=== PATIENT | female | born 1980 | race Caucasian/White ===

== ENCOUNTER → 2020-03-18 10:13 | Outpatient (BNVA) | payer MEDICAID, SELFPAY | PROVIDERS: Visit Provider Dietitian, Registered ==

== ENCOUNTER → 2020-03-28 14:30 | Outpatient (BNVA) | payer OTHER, SELFPAY | PROVIDERS: Visit Provider Physician Assistant | DX: R10.9 Unspecified abdominal pain (principal); Z98.84 Bariatric surgery status | CPT/HCPCS: 99212 ==

== ENCOUNTER 2020-05-08 11:35 | Outpatient (REF) | payer OTHER, SELFPAY ==
[2020-05-08 12:13] LABS: MANUAL DIFF FLAG NO
[2020-05-08 12:17] LABS: Basophils Percent Auto 0.4 % (0-2); Eosinophils Absolute Auto 0.1 X10*3/uL (0.0-0.4); Eosinophils Percent Auto 1.3 % (0-4); Hemoglobin 9.5 g/dl (12.0-16.0); Imm Gran Abs Auto 0.02 X10*3/uL (0.00-0.03); Imm Gran Pct Auto 0.4 % (0.0-0.4); Lymphocytes Absolute Auto 1.7 X10*3/uL (1.2-4.9); Lymphocytes Percent Auto 30.9 % (20-40); Mean Corpuscular HGB Conc 29.7 g/dl (31.0-35.0); Mean Corpuscular Hemoglobin 22.6 pg (27.0-33.0); Mean Platelet Volume 9.4 fL (9.4-12.3); Monocytes Absolute Auto 0.4 X10*3/uL (0.1-1.2); Monocytes Percent Auto 7.6 % (2-11); Neutrophils Absolute Auto 3.3 X10*3/uL (2.0-8.3); Neutrophils Percent Auto 59.4 % (45-73); Platelet Count 278 X10*3/uL (160-400); Red Blood Count 4.21 X10*6/uL (4.20-5.50); Red Cell Distribution Width 15.1 % (11.0-16.0); White Blood Count 5.5 X10*3/uL (4.8-10.8)
[2020-05-08 12:49] LABS: Estimated Average Glucose 108 mg/dL; Hemoglobin A1c % 5.4 %
[2020-05-08 12:54] LABS: Alanine Aminotransferase < 6 U/L (0-31); Albumin Level 4.2 g/dL (3.5-5.0); Alkaline Phosphatase 76 U/L (39-117); Anion Gap 13 (12-20); Aspartate Amino Transferase 10 U/L (5-31); Bilirubin Total 0.9 mg/dL (0.0-1.0); Blood Urea Nitrogen 11 mg/dL (9-16); C Reactive Protein 9.13 mg/dL (< or = 0.50); Calcium 9.2 mg/dL (8.4-10.2); Carbon Dioxide 25 mmol/L (22-29); Chloride 105 mmol/L (96-108); Cholesterol 160 mg/dL; Estimated Glomerular Filt Rate > 60; Glucose Random 73 mg/dL (60-115); HDL Cholesterol 64 mg/dL; LDL Cholesterol Calculated 81 mg/dl; Potassium 3.3 mmol/L (3.3-5.1); Sodium 140 mmol/L (135-145); Total Protein 6.7 g/dL (6.5-8.0); Triglycerides 79 mg/dL
[2020-05-08 13:13] LABS: Ferritin 18 ng/mL (10-122); TSH reflex Free T4 0.74 uIU/mL (0.32-4.0); Vitamin D 25-OH Total 27.5 ng/mL (>30)
[2020-05-08 13:39] LABS: Folate 12.2 ng/mL (> or = 4.0); Vitamin B12 428 pg/mL (200-900)
[2020-05-09 05:22] LABS: Insulin Level Total 28.6 uIU/mL
[2020-05-09 18:11] LABS: Calcium (PTHI) 9.2 mg/dL (8.6-10.2); PTHI 29 pg/mL (14-64)
[2020-05-10 22:37] LABS: Zinc 66 mcg/dL (60-130)
[2020-05-13 10:31] LABS: Vitamin A 23 mcg/dL (38-98)
[2020-05-15 12:46] LABS: Vitamin B1 8 nmol/L (8-30)
== END 2020-05-08 11:36 | disposition home or self-care (01) ==
LOC: HO.LAB 11:35
PROVIDERS: PCP Internal Medicine; Visit Provider Physician Assistant
DX: Z98.84 Bariatric surgery status (principal)
CPT/HCPCS: 36415; 80053; 80061; 82306; 82607; 82728; 82746; 83036; 83525; 83970; 84425; 84443; 84590; 84630; 85025; 86140

== ENCOUNTER → 2020-05-15 08:11 | Outpatient (BNVA) | payer OTHER, SELFPAY | PROVIDERS: Visit Provider Physician Assistant ==

== ENCOUNTER → 2020-07-24 08:13 | Outpatient (BNVA) | payer OTHER, SELFPAY | PROVIDERS: Visit Provider Physician Assistant | DX: E50.9 Vitamin A deficiency, unspecified (principal); D64.9 Anemia, unspecified ==

== ENCOUNTER 2021-12-18 10:43 | Outpatient (REF) | payer OTHER, SELFPAY ==
[2021-12-18 13:41] LABS: MANUAL DIFF FLAG NO
[2021-12-18 13:43] LABS: Basophils Percent Auto 0.5 % (0-2); Eosinophils Absolute Auto 0.1 X10*3/uL (0.0-0.4); Eosinophils Percent Auto 1.1 % (0-4); Hematocrit 35.3 % (37.0-47.0); Hemoglobin 10.4 g/dl (12.0-16.0); Imm Gran Abs Auto 0.01 X10*3/uL (0.00-0.03); Imm Gran Pct Auto 0.2 % (0.0-0.4); Lymphocytes Percent Auto 31.7 % (20-40); Mean Corpuscular HGB Conc 29.5 g/dl (31.0-35.0); Mean Corpuscular Hemoglobin 22.1 pg (27.0-33.0); Mean Corpuscular Volume 75.1 fL (80.0-98.0); Mean Platelet Volume 9.6 fL (9.4-12.3); Monocytes Absolute Auto 0.5 X10*3/uL (0.1-1.2); Monocytes Percent Auto 7.6 % (2-11); Neutrophils Absolute Auto 3.7 x10*3/uL (2.0-8.3); Neutrophils Percent Auto 58.9 % (45-73); Platelet Count 331 X10*3/uL (160-400); Red Cell Distribution Width 17.5 % (11.0-16.0); White Blood Count 6.2 X10*3/uL (4.8-10.8)
[2021-12-18 14:03] LABS: Alanine Aminotransferase 17 U/L (0-31); Albumin Level 4.4 g/dL (3.5-5.0); Alkaline Phosphatase 106 U/L (39-117); Anion Gap 14 (12-20); Aspartate Amino Transferase 18 U/L (5-31); Bilirubin Total 0.2 mg/dL (0.0-1.0); Blood Urea Nitrogen 17 mg/dL (9-16); C Reactive Protein 0.48 mg/dL (< or = 0.50); Calcium 9.6 mg/dL (8.4-10.2); Carbon Dioxide 27 mmol/L (22-29); Chloride 102 mmol/L (96-108); Estimated Glomerular Filt Rate > 60; Glucose Random 88 mg/dL (60-115); Iron 40 mcg/dL (30-160); Percent Iron Saturation 9 % (15-50); Potassium 4.5 mmol/L (3.3-5.1); Sodium 138 mmol/L (135-145); Total Iron Binding Capacity 446 mcg/dL (228-428); Total Protein 7.1 g/dL (6.5-8.0); Unsaturated Iron Binding 406 ug/dL
[2021-12-18 14:07] LABS: Creatinine Urine 113.24 mg/dL; Protein/Creatinine Ratio, Ur 0.07 (<0.2); Total Protein Urine Random 8 mg/dL (<12)
[2021-12-18 14:21] LABS: Erythrocyte Sedimentation Rate 13 MM/HR (0-20)
== END 2021-12-18 10:44 | disposition home or self-care (01) ==
LOC: HO.10HDL 10:43
PROVIDERS: Visit Provider Internal Medicine Rheumatology
DX: M79.7 Fibromyalgia (principal); D64.9 Anemia, unspecified; R76.8 Other specified abnormal immunological findings in serum; R12 Heartburn; Z79.899 Other long term (current) drug therapy; Z98.84 Bariatric surgery status
CPT/HCPCS: 36415; 80053; 83540; 84156; 85025; 85652; 86140; 99202

== ENCOUNTER → 2022-01-20 09:43 | Outpatient (BNVA) | payer OTHER, SELFPAY | PROVIDERS: PCP Internal Medicine; Visit Provider Internal Medicine | DX: Z11.59 Encounter for screening for other viral diseases (principal); D50.9 Iron deficiency anemia, unspecified; Z98.84 Bariatric surgery status | CPT/HCPCS: 99202 ==

== ENCOUNTER 2022-02-24 08:21 | Outpatient (REF) | payer OTHER, SELFPAY ==
[2022-02-24 09:42] LABS: TSH reflex Free T4 1.28 uIU/mL (0.32-4.0)
[2022-02-25 08:15] LABS: ~HepC Num1 0.06 S/CO (0.00-0.79); ~Hepatitis C Antibody Nonreactive (Nonreactive)
[2022-02-26 20:24] LABS: Transglutaminase IgA <1.0 U/mL
[2022-02-27 07:08] LABS: Immunoglobulin A 212 mg/dL (47-310)
[2022-02-27 17:47] LABS: Zinc 66 mcg/dL (60-130)
[2022-03-01 19:02] LABS: Copper, serum 159 mcg/dL (70-175)
== END 2022-02-24 08:22 | disposition home or self-care (01) ==
LOC: HO.LAB 08:21
PROVIDERS: Visit Provider Internal Medicine
DX: Z11.59 Encounter for screening for other viral diseases (principal); D50.9 Iron deficiency anemia, unspecified; Z98.84 Bariatric surgery status
CPT/HCPCS: 36415; 82525; 82784; 84443; 84630; 86364; 86803

== ENCOUNTER → 2022-03-10 11:34 | Outpatient (BNVA) | payer OTHER, SELFPAY | PROVIDERS: PCP Internal Medicine; Visit Provider Physician Assistant Surgical | DX: E66.9 Obesity, unspecified (principal); Z98.84 Bariatric surgery status; Z68.36 Body mass index [BMI] 36.0-36.9, adult | CPT/HCPCS: 99212 ==

== ENCOUNTER 2022-03-26 07:26 | Outpatient (REF) | payer OTHER, SELFPAY ==
[2022-03-26 08:16] LABS: Estimated Average Glucose 126 mg/dL
[2022-03-26 09:36] LABS: C Reactive Protein 0.33 mg/dL (< or = 0.50); Cholesterol 169 mg/dL; HDL Cholesterol 56 mg/dL; LDL Cholesterol Calculated 102 mg/dl; Triglycerides 59 mg/dL
[2022-03-26 09:58] LABS: Folate 11.6 ng/mL (> or = 4.0); Insulin 11 uU/mL (2-29); Vitamin B12 293 pg/mL (200-900); Vitamin D 25-OH Total 14.6 ng/mL (>30)
[2022-04-02 03:57] LABS: Vitamin A 39 mcg/dL (38-98)
[2022-04-04 15:38] LABS: Vitamin B1 12 nmol/L (8-30)
== END 2022-03-26 07:27 | disposition home or self-care (01) ==
LOC: HO.LAB 07:26
PROVIDERS: Visit Provider Physician Assistant Surgical
DX: Z98.84 Bariatric surgery status (principal)
CPT/HCPCS: 36415; 80061; 82306; 82607; 82746; 83036; 83525; 84425; 84590; 86140

== ENCOUNTER 2022-04-22 12:09 | Day surgery (SDC) | payer OTHER, SELFPAY ==
[2022-03-30 09:34] VITALS: BMI 36.1
--- NOTE | 2022-04-20 13:57 | P.CONAN_ITS ---
Documented by User: Arielle Younger NP 04/20/22 13:58 HPI - Anesthesia Eval Consult details Narrative: 42yo F for Upper Endoscopy and Colonoscopy PMFSH Active Problems Active Problems: All Active Problems (Updated 01/20/22 @ 10:24 by Anne-Marie Felton MD) Encounter for hepatitis C screening test for low risk patient (Acute) Iron deficiency anemia (Acute) Heartburn (Acute) KERWIN positive (Acute) Fibromyalgia (Acute) S/P laparoscopic sleeve gastrectomy (Acute) Anemia (Acute) Vitamin A deficiency (Acute) Obesity (Acute) Past Medical History Medical History Abdominal pain KERWIN positive Anemia Arthritis Back pain Fibromyalgia Migraines Morbidly obese Obesity Family History Family History Father High cholesterol Diabetes mellitus Hypertension Alzheimer disease Mother Hypertension Gastritis Stomach ulcer Brother Asthma Sister Asthma Sister Kidney problem Asthma Sister Asthma Sister Asthma Son Asthma ADHD Anxiety Son Allergies Daughter ADHD Allergies Surgical History Surgical History History of esophagogastroduodenoscopy (EGD) Hx of colonoscopy S/P laparoscopic sleeve gastrectomy Social History Social History Alcohol intake: never Patient Tobacco Use Status: Never used Tobacco Use of substances other than those prescribed or required for medical reasons: No Are you DNR?: No Advance Directives: No Advance Directives Information Provided: Yes Current occupational status: employed 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 Meds Allergies Allergy/AdvReac Type Severity Reaction Status Date / Time No Known Allergies Allergy Verified 04/22/22 12:39 Home Medications Medication Instructions Recorded Confirmed Last Taken Type acetaminophen 500 mg capsule 500 mg PO TID PRN Pain 12/18/21 04/22/22 Unknown History duloxetine 60 mg capsule,delayed 60 mg PO BEDTIME 12/18/21 04/22/22 Unknown History release (Cymbalta) tizanidine 4 mg capsule (Zanaflex) 4 mg PO BEDTIME 12/18/21 04/22/22 Unknown History Exam Exam Date and Time: April 20, 2022 1357 Height,Weight and Vital Signs: Height 5 ft 5 in Weight 98.43 kg Pertinent Lab Results Pertinent Lab Results: Laboratory Tests 12/18/21 12/18/21 10:50 10:50 WBC 6.2 Hgb 10.4 L Hct 35.3 L Plt Count 331 Sodium 138 Potassium 4.5 D Chloride 102 Carbon Dioxide 27 BUN 17 H Creatinine 0.74 Assessment and Plan Assessment Anesthesia Assessment: Chart Reviewed Documented by User: Annie Jacobs MD 04/22/22 14:16 PMFSH Active Problems Active Problems: All Active Problems (Updated 01/20/22 @ 10:24 by Anne-Marie Felton MD) Encounter for hepatitis C screening test for low risk patient (Acute) Iron deficiency anemia (Acute) Heartburn (Acute) KERWIN positive (Acute) Fibromyalgia (Acute) S/P laparoscopic sleeve gastrectomy (Acute) 2019@@ Anemia (Acute) Vitamin A deficiency (Acute) Obesity (Acute) Past Medical History Medical History Abdominal pain KERWIN positive Anemia Arthritis Back pain Fibromyalgia Migraines Morbidly obese Obesity Family History Family History Father High cholesterol Diabetes mellitus Hypertension Alzheimer disease Mother Hypertension Gastritis Stomach ulcer Brother Asthma Sister Asthma Sister Kidney problem Asthma Sister Asthma Sister Asthma Son Asthma ADHD Anxiety Son Allergies Daughter ADHD Allergies Family history of problems with anesthesia: No Surgical History Surgical History History of esophagogastroduodenoscopy (EGD) Hx of colonoscopy S/P laparoscopic sleeve gastrectomy History of Problems with Anesthesia: No Social History Social History Alcohol intake: never Patient Tobacco Use Status: Never used Tobacco Use of substances other than those prescribed or required for medical reasons: No Are you DNR?: No Advance Directives: No Advance Directives Information Provided: Yes Current occupational status: employed 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 Meds Allergies Allergy/AdvReac Type Severity Reaction Status Date / Time No Known Allergies Allergy Verified 04/22/22 12:39 Home Medications Medication Instructions Recorded Confirmed Last Taken Type acetaminophen 500 mg capsule 500 mg PO TID PRN Pain 12/18/21 04/22/22 Unknown History duloxetine 60 mg capsule,delayed 60 mg PO BEDTIME 12/18/21 04/22/22 Unknown History release (Cymbalta) tizanidine 4 mg capsule (Zanaflex) 4 mg PO BEDTIME 12/18/21 04/22/22 Unknown History Exam Height,Weight and Vital Signs: Height 5 ft 5 in Weight 98.43 kg Vital Signs Temp Pulse Resp BP Pulse Ox O2 Del Method 04/22/22 12:51 97.3 F 71 15 100/61 97 Room Air Airway Mallampati Class: II TM Dist: >3cm Neck ROM: Full Loose/Missing/Broken Teeth: No Heart: RRR Lungs: CTAB Assessment and Plan Assessment Anesthesia Assessment: Anesthesia Plan Discussed Final Anesthetic Review Family History of Problems with Anesthesia: No History of Problems with Anesthesia: No NPO: Yes ASA Class: III Final Preanesthetic Review: No Changes in Pt Med Stat, Meds/Allgs Chart Reviewed, Consent Obtained/Reviewed and Anes Risks/Benef Reviewed Patient Risk: Intermediate Procedure Risk: Low Assessment/Block/Sedation in SS: Assess/Block/Sedation-SS Anesthetic Plan Anesthetic Plan: MAC: Disposition: Standard PACU
[2022-04-22 12:49] LABS: UPreg QC Valid YES; Urine Pregnancy NEGATIVE (NEGATIVE)
[2022-04-22 12:51] VITALS: BP 100/61; PULSE 71; RESP 15; TEMP 36.3; O2SAT 97
--- NOTE | 2022-04-22 13:05 | MHC.SHP ---
Pre-Procedural Eval Section A Date of Service: 04/22/22 Section B Chief Complaint: Iron deficiency anemia,Bariatric surgery status Details of Present Illness: Medical History Abdominal pain KERWIN positive Back pain Fibromyalgia Hypothyroidism Migraines Morbidly obese Obesity Surgical History History of esophagogastroduodenoscopy (EGD) Hx of colonoscopy S/P laparoscopic sleeve gastrectomy Relevant Family History (Specify if Yes): No Relevant Social History: None Present Medications: see Short Stay Collaborative assessment Allergies: Allergies Allergy/AdvReac Type Severity Reaction Status Date / Time No Known Allergies Allergy Verified 04/22/22 12:39 Review of Systems Review of Systems Comment: Ten point ROS negative Exam Exam Comment: Gen appear: No acute distress HEENT: no icterus Chest: No overt resp distress Abd: soft, nontender, nondistended Psych: Stable affect, answering questions appropriately Neuro: A/Ox3 noted to move all extremities spontaneously Ext: no peripheral edema Plan Diagnosis/Plan: Unchanged I have reviewed the history and physical and performed a pertinent physical examination on my patient. No changes have occurred unless specified. Time Spent With Patient Time: Total time managing care of this patient today ____ minutes.
[2022-04-22] MEDS: Lactated Ringers 1,000 ML 100 ML IVCONT (13:32)
--- NOTE | 2022-04-22 14:47 | P.OP_ITS ---
Operative Note Operative Note Date of Service: 04/22/22 Narrative: Procedure:?Esophagogastroduodenoscopy and Colonoscopy Indication:?anemia Endoscopist:?Anne-Marie Felton MD Anesthesia Provider:?Ivet Hurst CRNA Anesthesia type:?MAC Instrument:?Olympus GIF-H190, PCF-H190L EGD Procedure:?? The procedure, indications, preparation and potential complications were reviewed with the patient, who indicated understanding and gave written informed consent to proceed. diplomatic interpreter assisted with the encounter .A physical exam was performed. The endoscope was introduced through the mouth, and advanced to the second part of the duodenum. The mucosa was carefully examined on slow withdrawal of the endoscope. The patient tolerated the procedure well. There were no immediate complications.? ? EGD Findings:? * Esophagus: Normal esophagus mucosa. The Z line was at 37 cm. * Stomach:?Normal stomach mucosa. Normal appearing cardia on retroflexion.?Narrowing of the stomach was noted along incisura but the scope traversed easily through the pylorus. Random cold forceps biopsies were taken to rule out H pylori. * Duodenum:? Normal mucosa to the extent seen.? Cold forceps biopsies were taken duodenal bulb and 2nd portion of the duodenum to rule out celiac sprue. Colonoscopy Procedure:? The patient was then turned for the colonoscopy. A digital rectal exam was performed which was normal.? A distal attachment cap was affixed to the tip of the scope and the colonoscope was then inserted through the anus and advanced through the colon to the cecum at 75 cm and terminal ileum. The appendiceal orifice and ileocecal valve was identified.? Mucosa was carefully examined under high definition white light as the instrument was slowly withdrawn in a retrograde panoramic fashion.?Ascending colon was intubated twice. Retroflexion was performed in rectum. The procedure was not difficult. There were no immediate obvious complications. The quality of the prep was BBPS: 2+3+3 = adequate Withdrawal time 14 minutes. Limitations: No limitations Colonoscopy Findings: Mucosa: Normal mucosa in whole colon and terminal ileum. Protruding lesions: * Medium internal hemorrhoids without stigmata of recent bleeding .Impression:? * Normal esophagus * Hiatal hernia * Normal stomach (biopsy) * Normal duodenum (biopsy) * Normal colon and terminal ileum mucosa (biopsy) * Internal hemorrhoids Recommendations: * Await path results.? * If H pylori positive, would recommend treatment followed by test of cure * Repeat colonoscopy for asymptomatic colon cancer screening recommended in 10 years. ? Following was discussed with the patient.? Relevant handout provided.
[2022-04-22 14:50] VITALS: BP 124/76; PULSE 88; RESP 16; TEMP 36.1; O2SAT 100
[2022-04-22 15:05] VITALS: BP 138/92; PULSE 89; RESP 17; TEMP 36.2; O2SAT 100
== END 2022-04-22 15:34 | disposition home or self-care (01) ==
PROVIDERS: Anesthesiology; Visit Provider Internal Medicine
PROC: (CPT 45378; principal; 2022-04-22 13:40)
DX: D50.9 Iron deficiency anemia, unspecified (principal); Z98.84 Bariatric surgery status; K64.8 Other hemorrhoids; K44.9 Diaphragmatic hernia without obstruction or gangrene; R12 Heartburn; M79.7 Fibromyalgia; E50.9 Vitamin A deficiency, unspecified; R76.8 Other specified abnormal immunological findings in serum; E66.01 Morbid (severe) obesity due to excess calories; Z68.36 Body mass index [BMI] 36.0-36.9, adult; Z79.899 Other long term (current) drug therapy
CPT/HCPCS: 45378; 43239; 81025; 88305; 88342; J2250

== ENCOUNTER 2022-05-05 14:52 | Outpatient (REF) | payer OTHER, SELFPAY ==
[2022-05-05 17:11] LABS: Unsaturated Iron Binding 339 ug/dL
[2022-05-05 17:12] LABS: Iron 23 mcg/dL (30-160); Percent Iron Saturation 6 % (15-50); Total Iron Binding Capacity 362 mcg/dL (228-428)
[2022-05-05 17:38] LABS: Ferritin 8 ng/mL (10-250); Folate 11.6 ng/mL (> or = 4.0); Vitamin B12 408 pg/mL (200-900); Vitamin D 25-OH Total 14.4 ng/mL (>30)
== END 2022-05-05 14:53 | disposition home or self-care (01) ==
LOC: HO.LAB 14:52
PROVIDERS: Visit Provider Internal Medicine
DX: D50.9 Iron deficiency anemia, unspecified (principal)
CPT/HCPCS: 36415; 82306; 82607; 82728; 82746; 83540

== ENCOUNTER → 2022-05-06 08:57 | Outpatient (BNVA) | payer OTHER, SELFPAY | PROVIDERS: PCP Internal Medicine; Referring Provider Internal Medicine; Visit Provider Internal Medicine | DX: D50.9 Iron deficiency anemia, unspecified (principal); E55.9 Vitamin D deficiency, unspecified; Z98.84 Bariatric surgery status; Z98.890 Other specified postprocedural states | CPT/HCPCS: 99212 ==

== ENCOUNTER 2022-05-28 08:45 | Outpatient (REF) | payer OTHER, SELFPAY | END 2022-05-28 08:46 | disposition home or self-care (01) | LOC: HO.MDS 08:45 | PROVIDERS: Visit Provider Internal Medicine | DX: D50.9 Iron deficiency anemia, unspecified (principal) | CPT/HCPCS: 96365; J1756 ==

== ENCOUNTER 2022-06-04 11:44 | Outpatient (REF) | payer OTHER, SELFPAY | END 2022-06-04 11:45 | disposition home or self-care (01) | LOC: HO.MDS 11:44 | PROVIDERS: Visit Provider Internal Medicine | DX: D50.9 Iron deficiency anemia, unspecified (principal) | CPT/HCPCS: 96365; J1756 ==

== ENCOUNTER 2022-06-10 11:42 | Outpatient (REF) | payer OTHER, SELFPAY | END 2022-06-10 11:43 | disposition home or self-care (01) | LOC: HO.MDS 11:42 | PROVIDERS: Visit Provider Internal Medicine | DX: D50.9 Iron deficiency anemia, unspecified (principal) | CPT/HCPCS: 96365; J1756 ==

== ENCOUNTER 2022-06-17 11:38 | Outpatient (REF) | payer OTHER, SELFPAY | END 2022-06-17 11:39 | disposition home or self-care (01) | LOC: HO.MDS 11:38 | PROVIDERS: Visit Provider Internal Medicine | DX: D50.9 Iron deficiency anemia, unspecified (principal) | CPT/HCPCS: 96365; J1756 ==

== ENCOUNTER 2022-06-24 11:10 | Outpatient (REF) | payer OTHER, SELFPAY | END 2022-06-24 11:11 | disposition home or self-care (01) | LOC: HO.MDS 11:10 | PROVIDERS: Visit Provider Internal Medicine | DX: D50.9 Iron deficiency anemia, unspecified (principal) | CPT/HCPCS: 96365; J1756 ==

== ENCOUNTER 2022-07-02 11:51 | Outpatient (REF) | payer OTHER, SELFPAY | END 2022-07-02 11:52 | disposition home or self-care (01) | LOC: HO.MDS 11:51 | PROVIDERS: Visit Provider Internal Medicine | DX: D50.9 Iron deficiency anemia, unspecified (principal) | CPT/HCPCS: 96365; J1756 ==

== ENCOUNTER 2022-07-07 09:18 | Outpatient (REF) | payer OTHER, SELFPAY ==
[2022-07-07 10:25] LABS: Hematocrit 37.5 % (37.0-47.0); Hemoglobin 11.4 g/dl (12.0-16.0); Mean Corpuscular HGB Conc 30.4 g/dl (31.0-35.0); Mean Corpuscular Hemoglobin 23.9 pg (27.0-33.0); Mean Corpuscular Volume 78.6 fL (80.0-98.0); Mean Platelet Volume 9.5 fL (9.4-12.3); Platelet Count 292 X10*3/uL (160-400); Red Blood Count 4.77 X10*6/uL (4.20-5.50); Red Cell Distribution Width 19.6 % (11.0-16.0); White Blood Count 5.9 X10*3/uL (4.8-10.8)
[2022-07-07 11:29] LABS: Ferritin 56 ng/mL (10-250); Folate 13.8 ng/mL (> or = 4.0); Vitamin B12 422 pg/mL (200-900); Vitamin D 25-OH Total 60.5 ng/mL (>30)
== END 2022-07-07 09:19 | disposition home or self-care (01) ==
LOC: HO.LAB 09:18
PROVIDERS: PCP Internal Medicine; Visit Provider Internal Medicine
DX: D50.9 Iron deficiency anemia, unspecified (principal); E55.9 Vitamin D deficiency, unspecified
CPT/HCPCS: 36415; 82306; 82607; 82728; 82746; 85027

== ENCOUNTER 2022-09-22 08:40 | Outpatient (REF) | payer OTHER, SELFPAY ==
[2022-09-22 09:09] LABS: Hemoglobin 11.9 g/dl (12.0-16.0); Mean Corpuscular HGB Conc 31.3 g/dl (31.0-35.0); Mean Corpuscular Hemoglobin 25.4 pg (27.0-33.0); Mean Platelet Volume 9.1 fL (9.4-12.3); Platelet Count 242 X10*3/uL (160-400); Red Blood Count 4.69 X10*6/uL (4.20-5.50); Red Cell Distribution Width 14.2 % (11.0-16.0); White Blood Count 5.8 X10*3/uL (4.8-10.8)
[2022-09-22 10:57] LABS: Ferritin 8 ng/mL (10-250); Vitamin D 25-OH Total 37.8 ng/mL (>30)
== END 2022-09-22 08:41 | disposition home or self-care (01) ==
LOC: HO.LAB 08:40
PROVIDERS: PCP Internal Medicine; Visit Provider Internal Medicine
DX: D64.9 Anemia, unspecified (principal); E55.9 Vitamin D deficiency, unspecified
CPT/HCPCS: 36415; 82306; 82728; 85027

== ENCOUNTER 2022-09-28 10:20 | Outpatient (AMB) | payer OTHER, SELFPAY ==
[2022-09-28 10:35] VITALS: BP 127/65; PULSE 93; BMI 37.8
--- NOTE | 2022-09-28 10:35 | MHC.OFFVIS ---
Intake Vital Signs 09/28/22 10:35 Height 5 ft 5 in Weight 227 lb 1.218 oz BMI 37.8 BP 127/65 Blood Pressure Location Lt brachial Position Sitting Pulse 93 Intake Visit Reasons: follow up Intake Note: Adriana presents in the office as a follow up. CC: She states that she is finished with the meds she was given and there is no changes everything is still the same as it was. Shearing Supervisor Required: Yes Shearing Supervisor Name: [place] [id number] Allergies No Known Allergies Allergy (Verified 09/28/22 10:36) HPI HPI Comments History of Present Illness Details This a 41 year olf female with PMH of sleeve gastrectomy 2018 who presents for follow up of iron deficiency anemia. 01/20/22: Patient noted to have microcytic anemia with low iron indices since April 2020. Recent ferritin was 18, saturation 9% and high TIBC. She is currently not on any iron supplementation she says a script that she was given has been completed. She denies any blood in stool, melena or hematochezia. Has history of intermittent menorrhagia. No family history of autoimmune diseases including celiac disease or inflammatory bowel disease, patient currently is seeing a keyseater operator for ? inflammatory arthritis in the setting of positive KERWIN. 04/22/22 - EGD/colo: Normal esophagus Hiatal hernia Normal stomach (biopsy) Normal duodenum (biopsy) Normal colon and terminal ileum mucosa (biopsy) Internal hemorrhoids Path: A.? Duodenum, biopsy:? Chronic inactive duodenitis. B.? Stomach, random, biopsy:? Antral-type and oxyntic mucosa with mild chronic inactive inflammation; no Helicobacter organisms seen. 05/06/22: No acute gastrointestinal complaints today. Has not been compliant with iron supplements. Still on the first bottle prescribed back in January. Previously used to get intermittent menorrhagia which she reports is now better. Endoscopy report and path reviewed. Labs reviewed including most recent iron indices. 09/28/22: Completed IV Venofer 200 x 3 in May. Most recent labs reviewed and ferritin low again at 8. Pt not on PO iron. Reports menstrual cycle is not heavy and reports changing pads 4-5 times. No abd pain, N,V, melena or hematochezia reported. [facility] Medical History Abdominal pain KERWIN positive Anemia Arthritis Back pain Fibromyalgia Migraines Morbidly obese Obesity Surgical History History of esophagogastroduodenoscopy (EGD) Hx of colonoscopy S/P laparoscopic sleeve gastrectomy Family History Father High cholesterol Diabetes mellitus Hypertension Alzheimer disease Mother Hypertension Gastritis Stomach ulcer Brother Asthma Sister Asthma Sister Kidney problem Asthma Sister Asthma Sister Asthma Son Asthma ADHD Anxiety Son Allergies Daughter ADHD Allergies Social History Alcohol intake: never Patient Tobacco Use Status: Never used Tobacco Current occupational status: employed 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 Code(s): Z98.84 - Bariatric surgery status (3) Vitamin D deficiency: Code(s): E55.9 - Vitamin D deficiency, unspecified Plan Reviewed with the patient that no source of occult bleeding leading to JAYLON noted on bidirectional endoscopy. Had good response to IV iron initially with improvement of ferritin to 50s, however has trickled down back to 8, in the absence of any other significant bleeding. Menorrhagia has resolved. Will proceed with small bowel evaluation with video capsule study. Vit D deficiency resolved. Plan: - VCE to be set up in the next few weeks - Prep isntructions reviewed with the pt - Follow up in 4 weeks Coding Level of Care Code Est Pt Level 4 (44343) Diagnoses Iron deficiency anemia D50.9 S/P laparoscopic sleeve gastrectomy Z98.84 Vitamin D deficiency E55.9
== END 2022-09-28 10:53 | disposition home or self-care (01) ==
PROVIDERS: PCP Internal Medicine; Visit Provider Internal Medicine
DX: D50.9 Iron deficiency anemia, unspecified (principal); Z98.84 Bariatric surgery status; E55.9 Vitamin D deficiency, unspecified
CPT/HCPCS: 99214

== ENCOUNTER → 2022-09-28 10:20 | Outpatient (BNVA) | payer OTHER, SELFPAY | PROVIDERS: PCP Internal Medicine; Visit Provider Internal Medicine | DX: D50.9 Iron deficiency anemia, unspecified (principal); R76.8 Other specified abnormal immunological findings in serum; M79.7 Fibromyalgia; E55.9 Vitamin D deficiency, unspecified; E66.01 Morbid (severe) obesity due to excess calories; Z68.37 Body mass index [BMI] 37.0-37.9, adult; Z90.3 Acquired absence of stomach [part of] | CPT/HCPCS: 99212 ==

== ENCOUNTER → 2022-10-23 08:16 | Outpatient (BNVA) | payer OTHER, SELFPAY | PROVIDERS: PCP Internal Medicine; Visit Provider Internal Medicine ==

== ENCOUNTER 2022-11-13 13:20 | Outpatient (AMB) | payer OTHER, SELFPAY ==
--- NOTE | 2022-11-13 13:25 | A.OFFVIS_ITS ---
Intake Vital Signs 11/13/22 13:30 Height 5 ft 5 in Weight 227 lb BMI 37.8 BP 131/78 Blood Pressure Location Lt brachial Position Sitting Pulse 75 Intake Visit Reasons: 2 week f/u after capsule Intake Note: Adriana presents in the office a a 2 week follow up CC: She states that she is here today for the results to her capsule endoscopy. Action Finisher Required: Yes Action Finisher Name: [id number] Elisabet Allergies No Known Allergies Allergy (Verified 11/13/22 13:30) HPI HPI Comments History of Present Illness Details This a 41 year olf female with PMH of sleeve gastrectomy 2018 who presents for follow up of iron deficiency anemia. 01/20/22: Patient noted to have microcytic anemia with low iron indices since April 2020. Recent ferritin was 18, saturation 9% and high TIBC. She is currently not on any iron supplementation she says a script that she was given has been completed. She denies any blood in stool, melena or hematochezia. Has history of intermittent menorrhagia. No family history of autoimmune diseases including celiac disease or inflammatory bowel disease, patient currently is seeing a street sweeper operator for ? inflammatory arthritis in the setting of positive KERWIN. 04/22/22 - EGD/colo: * Normal esophagus * Hiatal hernia * Normal stomach (biopsy) * Normal duodenum (biopsy) * Normal colon and terminal ileum mucosa (biopsy) * Internal hemorrhoids Path: A.? Duodenum, biopsy:? Chronic inactive duodenitis. B.? Stomach, random, biopsy:? Antral-type and oxyntic mucosa with mild chronic inactive inflammation; no Helicobacter organisms seen. 05/06/22: No acute gastrointestinal complaints today. Has not been compliant with iron supplements. Still on the first bottle prescribed back in January. Previously used to get intermittent menorrhagia which she reports is now better. Endoscopy report and path reviewed. Labs reviewed including most recent iron indices. 09/28/22: Completed IV Venofer 200 x 3 in May. Most recent labs reviewed and ferritin low again at 8. Pt not on PO iron. Reports menstrual cycle is not heavy and reports changing pads 4-5 times. No abd pain, N,V, melena or hematochezia reported. 11/13/22: Seen with editorial clerk. VCE completed. Unable to save/print report due to software issue. Requested office MA to contact [employer] rep. Otherwise, study completely reviewed. Single erosion noted in antrum, otherwise normal. No mucosal abnormality, ulceration, AVM or active bleeding noted in small bowel. Colon with poor prep. Pt herself reports fatigue and generalised body aches. Has noticed some menstrual changes as well recently but does not report heavy period. PFSH Medical History Arthritis Anemia KERWIN positive Migraines Back pain Fibromyalgia Morbidly obese Abdominal pain Obesity Surgical History Hx of colonoscopy History of esophagogastroduodenoscopy (EGD) S/P laparoscopic sleeve gastrectomy Family History Father High cholesterol Diabetes mellitus Hypertension Alzheimer disease Mother Hypertension Gastritis Stomach ulcer Brother Asthma Sister Asthma Sister Kidney problem Asthma Sister Asthma Sister Asthma Son Asthma ADHD Anxiety Son Allergies Daughter ADHD Allergies Social History Alcohol intake: never Patient Tobacco Use Status: Never used Tobacco Current occupational status: employed 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 Review of Systems Const All systems reviewed & are unremarkable except as noted in HPI and below Physical Exam Vital Signs: Last Vital Signs Pulse 75 11/13/22 13:30 BP 131/78 11/13/22 13:30 BMI result Body Mass Index 37.8 Gen appear: NAD HEENT: nonicteric, no cervical lymphadenopathy Chest: CTA CVS: Regular S1/S2 Abd: soft, nontender, nondistended, bowel sounds + Ext: no peripheral edema Neuro: A/Ox3, noted to move all extremities spontaneously Psych: interacting appropriately Assessment & Plan Assessment & Plan (1) Iron deficiency anemia: Code(s): D50.9 - Iron deficiency anemia, unspecified (2) S/P laparoscopic sleeve gastrectomy: Comment: July 2018. Code(s): Z98.84 - Bariatric surgery status Plan Reviewed with the patient that no source of occult bleeding leading to JAYLON noted on bidirectional endoscopy or video capsule endoscopy. JAYLON likely due to poor PO absorption s/p sleeve gastrectomy. Plan: - Recheck CBC, iron indices - Venofer to be given - # of infusions dependent on ferritin - Once IV iron therapy is completed, will monitor with labs after 3 months and then after 6 months Follow up in 6 months Orders: Orders Complete Blood Count no Diff Today D64.9 - Anemia, unspecified Ferritin Today D64.9 - Anemia, unspecified IRON PROFILE Today D64.9 - Anemia, unspecified Coding Level of Care Code Est Pt Level 4 (74121) Diagnoses Iron deficiency anemia D50.9 S/P laparoscopic sleeve gastrectomy Z98.84
[2022-11-13 13:30] VITALS: BP 131/78; PULSE 75; BMI 37.8
== END 2022-11-13 14:16 | disposition home or self-care (01) ==
PROVIDERS: PCP Internal Medicine; Visit Provider Internal Medicine
DX: D50.9 Iron deficiency anemia, unspecified (principal); Z98.84 Bariatric surgery status
CPT/HCPCS: 99214

== ENCOUNTER → 2022-11-13 13:20 | Outpatient (BNVA) | payer OTHER, SELFPAY | PROVIDERS: PCP Internal Medicine; Visit Provider Internal Medicine | DX: D50.9 Iron deficiency anemia, unspecified (principal); Z98.84 Bariatric surgery status | CPT/HCPCS: 99212 ==

== ENCOUNTER 2022-11-24 12:41 | Outpatient (REF) | payer OTHER, SELFPAY | END 2022-11-24 12:42 | disposition home or self-care (01) | LOC: HO.LAB 12:41 | PROVIDERS: PCP Internal Medicine; Visit Provider Internal Medicine | DX: D64.9 Anemia, unspecified (principal) | CPT/HCPCS: 36415; 82728; 83540; 85027 ==

== ENCOUNTER 2023-03-15 15:25 | Outpatient (AMB) | payer OTHER, SELFPAY ==
--- NOTE | 2023-03-15 15:27 | MHC.OFFVIS ---
Intake Vital Signs 03/15/23 15:28 Height 5 ft 5 in Weight 226 lb 13.69 oz BMI 37.7 BP 116/62 Blood Pressure Location Rt brachial Position Sitting Pulse 93 Pulse Source Pulse Oximeter Temp 97.9 F Temp Source Skin Pulse Oximetry (%) 99 Oxygen Delivery Method Room Air Intake Visit Reasons: FM Intake Note: Patient last seen by Dr Aguilar on 12/18/21 presents today for follow up and test results. c/o left shoulder pain x 6+ months c/o hand numbness at night c/o low back pain General Assistant Required: Yes General Assistant Language: Cage Loader Name: [id number] Information Interpreted: clinical only Accompanied by: Self / Same As Patient Allergies No Known Allergies Allergy (Verified 03/15/23 15:32) Medication List - Last Reconciled 03/15/23 by Matteo Ibarra MD acetaminophen 500 mg PO TID PRN cholecalciferol (vitamin D3) (Vitamin D3) 50 mcg PO DAILY duloxetine 60 mg PO DAILY omeprazole 20 mg PO DAILY tizanidine 4 mg PO BEDTIME HPI HPI Comments History of Present Illness Details 43-year-old female with fibromyalgia returns for follow-up. Patient states that over the last 8 months she has been having right shoulder pain some right neck pain and right elbow pain. She can not recall any recent trauma or overuse. Most recent history by Dr. Aguilar 12/2021: The patient presents for evaluation of positive KERWIN and widespread pains. The exam and interview were facilitated with the help of Mariposa our biomedical photographer. The patient records at [facility] and [facility] were reviewed. She had been seen in [facility] [place] [address] Gomez. She had multiple joint complaints then. The KERWIN was positive but subsequent workup with other serologies including anti double-stranded DNA, anti AVTAR, Sjogren's antibodies and complement levels were all normal. She was felt to have fibromyalgia and started on Cymbalta. The Cymbalta has been continued. The patient reports her widespread pains are sometimes felt to be accompanied by swelling in the forearms and in the feet. She feels her symptoms have been worse, more commonly painful, in the last year or so. She is currently taking some tizanidine at night and that seems to help to some degree help her sleep. In the past she was on gabapentin but that made her too groggy. Similarly cyclobenzaprine also made her groggy. She does take occasional ibuprofen or acetaminophen during the day for pains. She had a gastric sleeve operation back in 2018. That resulted in about 80 lb of weight loss although about 20 lb has returned. She went to the ER at [facility] in September. It was discovered she had a microcytic anemia. Further workup showed iron deficiency and she was put on iron tablets. She claims to be taking 1 a day of ferrous sulfate. She had another set of lab work in early November done here that showed continuation of the anemia at about the same level as well as iron deficiency and low ferritin. [facility] Medical History Arthritis Anemia KERIWN positive Migraines Back pain Fibromyalgia Morbidly obese Abdominal pain Obesity Surgical History Hx of colonoscopy History of esophagogastroduodenoscopy (EGD) S/P laparoscopic sleeve gastrectomy Family History Father High cholesterol Diabetes mellitus Hypertension Alzheimer disease Mother Hypertension Gastritis Stomach ulcer Brother Asthma Sister Asthma Sister Kidney problem Asthma Sister Asthma Sister Asthma Son Asthma ADHD Anxiety Son Allergies Daughter ADHD Allergies Social History Alcohol intake: never Patient Tobacco Use Status: Never used Tobacco Current occupational status: employed 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 Review of Systems [facility] Reports arthralgias and Reports stiffness Physical Exam Vital Signs: Last Vital Signs Temp 97.9 F 03/15/23 15:28 Pulse 93 03/15/23 15:28 BP 116/62 03/15/23 15:28 Pulse Ox 99 03/15/23 15:28 Oxygen Delivery Method Room Air 03/15/23 15:28 BMI result Body Mass Index 37.7 Const General: cooperative, healthy appearing and comfortable Nutritional Appearance: obese morbidly obese Orientation/consciousness: patient oriented x3 Limitations: no limitations HEENT Head: Yes normocephalic and Yes atraumatic Mouth: moist mucous membranes Resp Effort & Inspection: normal respiratory effort and able to speak in complete sentences Skin General skin exam: no rashes or lesions noted Neuro General: patient oriented x3 Extrem Other: Positive empty can test on the right Positive infraspinatus test and lift-off test on the right Tenderness at the common extensor origin on the right lateral epicondyle and positive resisted wrist extension test Negative Tinel sign bilaterally Negative Spurling's test bilaterally Few fibromyalgia tender points No active synovitis Results Reviewed Results Reviewed: Laboratory Tests October 12, 2021 lab work from [place]: Hemoglobin 9.4, hematocrit 32.8, iron level 17. 11/18/2021 lab work from [place]: Hemoglobin 9.8, hematocrit 33.1, MCV 74.4, platelet count [id number], white count 5.3, creatinine 0.7, iron binding capacity 242, total iron 24, iron saturation 5%, KERWIN positive 1-160 with a speckled pattern, ferritin 5 Assessment & Plan Assessment & Plan (1) Right rotator cuff tendonitis: Code(s): M75.81 - Other shoulder lesions, right shoulder Plan: I recommend PT. (2) Right tennis elbow: Code(s): M77.11 - Lateral epicondylitis, right elbow Plan: Recommend occupational therapy (3) KERWIN positive: Comment: pos KERWIN om 2014, 2016, 2021. 2015: Neg or normal ant-ds DNA, anti-AVTAR, C3, C4, Sjogren's Ab Code(s): R76.8 - Other specified abnormal immunological findings in serum Plan: I Do not see any signs of an autoimmune rheumatic disease. (4) Fibromyalgia: Code(s): M79.7 - Fibromyalgia Plan: Follow-up with PCP Plan I spent 25 minutes reviewing patient's chart, evaluating patient, placing orders, counseling patient and documenting in the chart Orders: Orders PT Evaluation and Treatment Today M75.81 - Other shoulder lesions, right shoulder OT Evaluation and Treatment Today M77.11 - Lateral epicondylitis, right elbow Coding Level of Care Code Est Pt Level 4 (77466) Diagnoses Right rotator cuff tendonitis M75.81 Right tennis elbow M77.11 KERWIN positive R76.8 Fibromyalgia M79.7
[2023-03-15 15:28] VITALS: BP 116/62; PULSE 93; TEMP 36.6; O2SAT 99; BMI 37.7
== END 2023-03-15 16:03 | disposition home or self-care (01) ==
PROVIDERS: PCP Internal Medicine; Visit Provider Student in an Organized Health Care Education/Training Program
DX: M75.81 Other shoulder lesions, right shoulder (principal); M77.11 Lateral epicondylitis, right elbow; R76.8 Other specified abnormal immunological findings in serum; M79.7 Fibromyalgia
CPT/HCPCS: 99214

== ENCOUNTER → 2023-03-15 15:25 | Outpatient (BNVA) | payer OTHER, SELFPAY | PROVIDERS: PCP Internal Medicine; Visit Provider Student in an Organized Health Care Education/Training Program | DX: M75.81 Other shoulder lesions, right shoulder (principal); M77.11 Lateral epicondylitis, right elbow; M79.7 Fibromyalgia; R76.8 Other specified abnormal immunological findings in serum | CPT/HCPCS: 99212 ==

== ENCOUNTER 2024-06-28 09:47 | Outpatient (AMB) | payer OTHER, SELFPAY ==
--- NOTE | 2024-06-28 09:54 | A.OFFVIS_ITS ---
VS Expanded 06/28/24 10:02 BP 136/67 Blood Pressure Location Rt brachial Blood Pressure Position Sitting Pulse 62 Pulse Source Pulse Oximeter Temp 95.3 F L Temperature Source Temporal Artery Scan Pulse Oximetry 99 Oxygen Delivery Method Room Air Height 5 ft 5.5 in Weight 224 lb BMI 36.7 Body Fat % 45.0 Body Fat Mass 100.8 Fat Free Mass 123.2 Visceral Fat Rating 12.0 Body Water % 39.3 Body Water Mass 88.0 Muscle Mass/Score 117.0 Basal Metabolic Rate/Score 1,735 Intake Visit Reasons: (OV) PO LSG 07/21/18 *GLP-1* Supervisor Stitching Department Required: Yes Supervisor Stitching Department Services: Supervisor Stitching Department Present Supervisor Stitching Department Name: hospital cmi Allergies No Known Allergies Allergy (Verified 06/28/24 09:58) Medication List - Last Reconciled 06/28/24 by ALYSA Hope acetaminophen 500 mg PO TID PRN cholecalciferol (vitamin D3) (Vitamin D3) 50 mcg PO DAILY duloxetine 60 mg PO DAILY omeprazole 20 mg PO DAILY tizanidine 4 mg PO BEDTIME HPI Comments Details: Patient is a pleasant 44-year-old female who returns to the office today in follow-up. She is 5 years 11 months post sleeve gastrectomy performed 07/21/2018. She was last seen in the office in February 2022 with a weight of 216.6 lb and prior to that seen in April 2020 with a weight of 184 lb. Weight today is 224 lb with a BMI of 37.3. She states she has not been to the office in a couple of years due to work and didn't have time. She states that she has been fatigued lately and underwent lab data through her primary care physician at the [facility] 2 weeks ago. She was told that she has iron-deficiency anemia, but does not remember other problems. She was requested to get labs sent to us. F/u with PCP 4 months. Meal plan: none Exercise plan: none Could join a gym, no home equipment. Any post op complications: None ORNI: Never DM: Never HTN: Never Hyperlipidemia: Never GERD:?0-5 scale ??0 = no symptoms ??1 = symptoms noticeable but not bothersome 2 =symptoms bothersome but not daily ? 3 = symptoms bothersome and daily 4 = symptoms affect daily activities 5 = symptoms are incapacitating, unable to do daily activities ? How bad is the heartburn: 2 ? Heartburn while lying down: 0 ? Heartburn when standing up: 0 ? Heartburn after meals: 2 ? Does heartburn change your diet: 0 ? Does heartburn wake you up from sleep: 0 ? Do you have difficulty swallowin ? Do you have pain with swallowin ? If you take medicine for your reflux, does this affect your daily life: 0 Satisfaction with present condition - satisfied or not satisfied: Not satisfied PFS Medical History Arthritis Anemia KERWIN positive Migraines Back pain Fibromyalgia Morbidly obese Abdominal pain Obesity Surgical History Hx of colonoscopy History of esophagogastroduodenoscopy (EGD) S/P laparoscopic sleeve gastrectomy Family History Father High cholesterol Diabetes mellitus Hypertension Alzheimer disease Mother Hypertension Gastritis Stomach ulcer Brother Asthma Sister Asthma Sister Kidney problem Asthma Sister Asthma Sister Asthma Son Asthma ADHD Anxiety Son Allergies Daughter ADHD Allergies Social History Alcohol intake: never Patient Tobacco Use Status: Never used Tobacco Current occupational status: employed 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 Code(s): Z98.84 - Bariatric surgery status Category: Surgical Plan: Patient returned to the office after not being seen for approximately 2 years. She had labs done through her primary care physician through an outside hospital system a proximally 2 weeks ago. She was given my business card so that she may have these labs faxed over to us. She was given information regarding right BMI website. Encouraged to take a multivitamin. Discussed the importance of di scipline, consistency. Discussed the importance of exercise, goal of burning 300 calories per day, 7 days per week. She states she is going to joined [email or web address] gym. We discussed initiation of GLP 1 medications. Discussed the potential risks and benefits as well as side effects. She would like to start these and we will prescribe Zepbound 2.5 mg weekly. We will have her return to the office in approximately 1 month. Medications: New tirzepatide (weight loss) (Zepbound) for 4 weeks 2.5 mg (0.5 mL) subcut QWEEK 2 mL 0RF
[2024-06-28 10:02] VITALS: BP 136/67; PULSE 62; TEMP 35.2; O2SAT 99; BMI 36.7
--- OUTSIDE RECORDS SUMMARY | 2024-06-28 10:28 | XMS_ITS | Patient Health Record ---
Author Organization [facility] Address [address] [place], [place] [id number] Care Team Providers Care Plug Making Operator Name Role Phone Cookie Mccullough Primary Care Provider Eric Hall [phone] Reason For Referral No Information Medications Medication SIG (Take, Route, Frequency, Duration) Notes Start Date End Date Status Vitamin D-[address] 1000 UNIT 1 tablet Orally Once a day for 30 day(s) 09/09/2017 Active Amitriptyline HCl 10 MG Orally Once a day Active Cetirizine HCl 10 MG Orally Once a day Active Omeprazole 20 MG Orally once a day Active Famotidine 20 MG 1 tablet at bedtime Orally Once a day for 30 day(s) 07/27/2017 Not-Taking Problems Problem Type SNOMED Code ICD Code Onset Dates Problem Status W/U Status Risk Notes Problem Angioedema (581119388) Angioedema (T78.3XXA) Active confirmed Problem Seasonal allergic rhinitis (002431351) Seasonal rhinitis (J30.2) Active confirmed Problem Chronic urticaria (49782858) Chronic urticaria (L50.8) Active confirmed Plan Of Treatment No Information Insurance Providers Payer Name Payer Address Payer Phone Subscriber Number Group Number Insured Name Patient Relationship to Insured Coverage Start Date Coverage End Date Medicaid [employer] [address] [place] [id number] Adriana Ribera Self - patient is the insured Medical (General) History Medical History History ICD Code Fibromyalgia Seasonal rhinitis Gastroesophageal reflux
--- OUTSIDE RECORDS SUMMARY | 2024-06-28 10:28 | XMS_ITS | Clinical Summary ---
Author Organization [facility] Address [address] [place] [address] Care Team Providers Care Lieutenant Ballistics Name Role Phone JamelCookie Primary Care Provider [phone] Medications Omeprazole 20 MG CAPSULE DELAYED RELEASE TAKE 1 CAPSULE BY MOUTH DAILY BEFORE A MEAL 3 08/24/2017 Active Cetirizine HCl 10 MG Tab TAKE 1 TABLET BY ORAL ROUTE EVERY DAY 3 07/16/2017 Active TraMADol HCl 50 MG Tab TAKE 1 TABLET BY MOUTH TWICE DAILY NEEDED 0 10/13/2017 Active Naproxen 500 MG Tab Take 1 Tab by mouth 2 times daily as needed for Pain. 08/07/2016 Active Active Problems Problem Noted Date Diagnosed Date Morbid obesity due to excess calories 12/13/2015 Fibromyalgia 08/22/2014 Chronic lower back pain 08/06/2014 Common migraine 08/06/2014 Hypothyroid 08/06/2014 Positive KERWIN (antinuclear antibody) 08/06/2014 Overview (09/03/2017): Overview: 11/01/12 Social History Tobacco Use Types Packs/Day Years Used Date Smoking Tobacco: Never Smokeless Tobacco: Never Intimate Partner Violence Answer Date R ecorded Fear of Current or Ex-Partner Not on file Emotionally Abused Not on file 10/08/2022 Physically Abused Not on file 10/08/2022 Sexually Abused Not on file 10/08/2022 Feel Safe at Home Not on file 10/08/2022 Comments Unknown Sex and Gender Information Value Date Recorded Sex Assigned at Not on file Legal Sex Female 9:23 AM EDT Gender Identity Not on file Sexual Orientation Not on file Last Filed Vital Signs Vital Sign Reading Time Taken Comments Blood Pressure 116/78 01/04/2018 11:00 AM EST Pulse 60 01/04/2018 11:00 AM EST Temperature - - Respiratory Rate - - Oxygen Saturation - - Inhaled Oxygen Concentration - - Weight 113 kg (250 lb) 01/04/2018 11:00 AM EST Height - - Body Mass Index - - Plan of Treatment Health Maintenance Due Date Last Done Comments Hepatitis C Screening 1981 Pap Smear 1997 DTaP/Tdap/Td (1 - Tdap) 1999 Hep B (1 of 3 - 19+ 3-dose series) 02/12/2000 Mammogram/Breast Imaging 2021 COVID-19 Vaccine ( - 2023-2 5 season) 2023 Influenza (#1) 2023 Zoster (Shingrix) (1 of 2) 2031 HPV Vaccine Aged Out No longer eligi ble based on patient's age to complete this topic Hep A Aged Out No longer eligi ble based on patient's age to complete this topic Hib Aged Out No longer eligi ble based on patient's age to complete this topic Meningococcal ACWY Aged Out No longer eligible based on patient's age to complete this topic Pneumococcal Aged Out No longer eligi ble based on patient's age to complete this topic Insurance MEDICAID Care Teams Lieutenant Ballistics Relationship Specialty Start Date End Date Cookie Mccullough DO [address] [place] [address] PCP - General Family Medicine 07/22/17
--- OUTSIDE RECORDS SUMMARY | 2024-06-28 10:28 | XMS_ITS | Clinical Summary ---
Author Organization [facility] Address [address] [place] [address] Care Team Providers Care Client Manager Large Law Name Role Phone Unavailable Primary Care Provider Unavailabl e Source Comments PLEASE NOTE, if this patient is a minor, it may be UNLAWFUL to discuss sensitive information that is contained in these records (such as FAMILY PLANNING, MENTAL HEALTH or SUBSTANCE ABUSE) with the minor patient's parent or other person without the patient's specific authorization.[facility] Medications amoxicillin (AMOXIL) 500 mg capsuleIndicati ons:Tooth infection Take 1 Cap by mouth 3 (three) times daily 21 Cap 05/09/2019 Active azithromycin (ZITHROMAX Z-GABY) 250 mg tabletIndicatio ns:Tooth infection Take 2 tabs by mouth on the first day and 1 tab by mouth per day until finished. 5 Tab 09/01/2019 Active triamcinolone acetonide (KENALOG) 0.1 % pasteIndication s:Aphthous ulcer of mouth Place in mouth 2 (two) times daily 5 g 1 09/01/2019 Active acetaminophen (TYLENOL) 500 mg tabletIndicatio ns:Chronic dental pain Take 1 Tablet by mouth every 6 (six) hours as needed for pain Do not take more than 6 (six) tablets in a 24 (twenty four) hour period. 20 Tablet 1 11/14/2020 Active Active Problems No known active problems Social History Tobacco Use Types Packs/Day Years Used Date Smoking Tobacco: Never Smokeless Tobacco: Never Tobacco Cessation:Counseling Given: Not Answered Social Connections Answer Date Recorded Connectedness 0 11/03/2023 Financial Resource Strain Answer Date R ecorded Financial Resource Strain 0 2022 Stress Answer Date Recorded Stress 0 06/16/2022 Physical Activity Answer Date Recorded Physical Activity 0 06/16/2022 Food Insecurity Answer Date Recorded Food 0 11/11/2023 Transportation Needs Answer Date Record ed Transportation 0 06/16/2022 Housing Stability Answer Date Recorded Housing 0 06/16/2022 Safety and Environment Answer Date Dipesh rded Safety 0 06/16/2022 Utilities Answer Date Recorded Utilities 0 06/16/2022 Employment Answer Date Recorded Stress 0 11/03/2023 Comments Unknown Sex and Gender Information Value Date Recorded Sex Assigned at Not on file Legal Sex Female 8:16 AM PDT Gender Identity Not on file Sexual Orientation Not on file Last Filed Vital Signs Vital Sign Reading Time Taken Comments Blood Pressure 148/91 06/16/2022 1:43 PM EDT Pulse 96 06/16/2022 1:43 PM EDT Temperature - - Respiratory Rate - - Oxygen Saturation - - Inhaled Oxygen Concentration - - Weight - - Height - - Body Mass Index - - Plan of Treatment Health Maintenance Due Date Last Done Comments Anxiety Screening 1981 HPV Screening 1981 Hepatitis C Screening 1981 Pap + HPV 1981 Tobacco Screening 1981 HIV Screening 02/12/1996 Relationship Safety Screening/Counseling 02/12/1996 Imm-Hepatitis B (1 of 3 - 19 + 3-dose series) 02/12/2000 Cervical Cancer Screening 2002 Pap Smear 2002 Breast Cancer Screening (Mammogram) 2021 Hypertension Screening (#1) 06/16/2023 Diabetes Screening 06/18/2023 06/17/2020 Bba-LOUBA-14 ( season) 2023 Imm-Influenza (#1) 2023 12/01/2017, 01/05/2017 Alcohol and Drug Screen 02/16/2024 Depression Annual Screen 02/16/2024 Lipid Screening 06/17/2025 06/17/2020 Imm-DTaP/Tdap/Td (3 - Td or Tdap) 01/05/2027 017, 03/02/2013 Cervical Ablation/Cold-Knife Conization Discontinued Cervical Cryotherapy Discontinued Colposcopy Discontinued Endometrial Biopsy Discontinued Excision/Leep Discontinued HPV Genotyping Discontinued Vaginal Pap Discontinued Vulvoscopy Discontinued Insurance [employer] DENT[employer] [facility] [place] [address]
--- OUTSIDE RECORDS SUMMARY | 2024-06-28 10:28 | XMS_ITS | Clinical Summary ---
Author Organization [facility] Address [address] [place] [address] Phone Care Team Providers Care Security Guards Dispatcher Name Role Phone Nerissa Robertson MD Primary Care Provider [phone] Allergies No known active allergies Medications meloxicam (MOBIC) 7.5 mg tablet 4 Active loratadine (CLARITIN) 10 mg tablet Take 1 tablet (10 mg total) by mouth 1 (one) time each day. 4 Active ketoconazole (NIZORAL) 2 % cream Apply locally twice a day 3 Active ibuprofen (ADVIL,MOTRIN) 600 mg tablet Take 1 Tablet by mouth 2 times daily as needed for Pain. 3 Active cetirizine (ZyrTEC) 10 mg tablet Take 1 tablet (10 mg total) by mouth 1 (one) time each day. 8 Active DULoxetine (CYMBALTA) [address] capsuleIndicati ons:Anxiety and depression,Fibr omyalgia Take 1 capsule (20 mg total) by mouth 2 (two) times a day. Do not crush or chew. 60 each 5 5 12/13/19 25 Active tiZANidine (ZANAFLEX) 2 mg tabletIndicatio ns:Muscle spasm Take 1 tablet (2 mg total) by mouth at bedtime as needed for muscle spasms. 30 tablet 5 Active levocetirizine (Xyzal) 5 mg tabletIndicatio ns:Seasonal allergies Take 1 tablet (5 mg total) by mouth 1 (one) time each day in the evening. 30 each 11 5 06/16/19 26 Active pantoprazole (PROTONIX) 40 mg EC tabletIndicatio ns:Gastroesopha geal reflux disease, unspecified whether esophagitis present Take 1 tablet (40 mg total) by mouth 2 (two) times a day if needed for heartburn. Do not crush, chew, or split. 60 each 1 5 08/15/19 25 Active cholecalciferol (VITAMIN D-3) 50 mcg (2,000 unit) tabletIndicatio ns:Vitamin D deficiency Take 1 tablet (2,000 Units total) by mouth 1 (one) time each day. 90 tablet 3 5 Active escitalopram (LEXAPRO) 10 mg tablet Take 1 tablet (10 mg total) by mouth 1 (one) time each day. 4 06/16/19 25 Discontinue d(Patient Discharge) cholecalciferol (VITAMIN D-3) 50 mcg (2,000 unit) tablet Take 1 tablet (2,000 Units total) by mouth 1 (one) time each day. 4 06/27/19 25 Discontinue d(Reorder) loperamide (IMODIUM) 2 mg capsuleIndicati ons:Diarrhea, unspecified type Take 1 capsule (2 mg total) by mouth 4 (four) times a day if needed for diarrhea for up to 10 days. 30 capsule 5 06/26/19 25 Active Problems Problem Noted Date Diagnosed Date H/O gastric sleeve 06/15/2024 Morbid obesity due to excess calories (CMS/[facility] V24, CMS/HCC V28) 12/13/2015 Fibromyalgia 08/22/2014 Chronic lower back pain 08/06/2014 Common migraine 08/06/2014 Hypothyroid 08/06/2014 Positive KERWIN (antinuclear antibody) 08/06/2014 Overview (01/29/2024): 11/01/12 Encounters Date Type Department Care Team Description 06/15/2024 11:15 AM EDT Office Visit Internal Medicine - [address] [id number] Alam, Tanzeem, BUSINESS MANAGEMENT CONSULTANT Routine adult health maintenance (Primary Dx); Screen for STD (sexually transmitted disease); Anxiety and depression; Fibromyalgia; Positive KERWIN (antinuclear antibody); Muscle spasm; Seasonal allergies; Cervical cancer screening; H/O gastric sleeve; Diarrhea, unspecified type; Gastroesophageal reflux disease, unspecified whether esophagitis present from Last 3 Months Immunizations Name Administration Dates Next Due Hep B, Unspecified 03/02/2013 Measles 03/02/2013 Mumps 03/02/2013 PPD Test 07/01/2016 Rubella 03/02/2013 Tdap Tetanus diptheria acell ular pertussis (Boostrix; Adacel) 7yo and older 03/02/2013 Surgical History Surgery Date Site/Laterality Comments OTHER SURGICAL HISTORY PROCEDURE: DENIES PREVIOUS SURGERY Medical History Medical History Date Comments Chronic lower back pain 08/06/2014 DX:Chron ic lower back pain Hypothyroid 08/06/2014 DX:Hypothyroid Common migraine 08/06/2014 DX:Common migrai ne Positive KERWIN (antinuclear antibody) 08/06/2014 DX:Positive KERWIN (antinuclear antibody); COMMENT: 11/01/12 Morbid obesity due to excess calories ([facility]/HCC V24, CMS/HCC V28) 12/13/2015 DX:Morbid obesity due to ex cess calories ([facility]) Fibromyalgia 08/22/2014 DX:Fibromyalgia Family History Medical History Relation Name Comments Other: ovarian cancer Aunt 1 2 mate rnal aunts Diabetes Father Arthritis Mother Other: ovarian cancer Mother in her 20s Other: Other Sister 1 renal disease ( ?nephrotic syndrome) Relation Name Status Comments Aunt 1 Aunt 2 Brother Alive Daughter Alive Father Mother Sister 1 Sister 2 Alive Sister 3 Alive Sister 4 Alive Son 1 Alive Son 2 Alive Social History Tobacco Use Types Packs/Day Years Used Date Smoking Tobacco: Never Smokeless Tobacco: Never Alcohol Use Standard Drinks/Week Comments Yes 0 (1 standard drink = 0.6 oz pur e alcohol) on occasion Comments Unknown Sex and Gender Information Value Date Recorded Sex Assigned at Not on file Legal Sex Female 12:15 AM EST Gender Identity Not on file Sexual Orientation Not on file Occupation Industry Job Start Date Job End Date 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 Not on file Not on file Not on f ile Obstetrics History Last Filed Vital Signs Vital Sign Reading Time Taken Comments Blood Pressure 110/80 06/15/2024 11:17 AM EDT Pulse 87 06/15/2024 11:17 AM EDT Temperature 36.4 ??C (97.5 ??F) 06/15/2024 11:17 AM E DT Respiratory Rate - - Oxygen Saturation 98% 06/15/2024 11:17 AM EDT Inhaled Oxygen Concentration - - Weight 99.1 kg (218 lb 6.4 oz) 06/15/2024 11:17 AM EDT Height 165.1 cm (5' 5 ) 06/15/2024 11:17 AM EDT Body Mass Index 36.34 06/15/2024 11:17 AM EDT Plan of Treatment Upcoming Encounters Date Type Department Care Team (Late st Contact Info) Description 08/01/2024 9:40 AM EDT Consult Gastroenterology - [place] [facility] [address] [phone] Toña Osborn, LION [address] [address] 09/14/2024 10:00 AM EDT Appointment [facility] Ultrasound [address] [place] [phone] 12/19/2024 11:00 AM EST Office Visit Internal Medicine - [place] [address] [phone] Nerissa Robertson MD [address] [phone] Health Maintenance Due Date Last Done Comments Pneumococcal Vaccine: Pediatrics (0 to 5 Years) and At-Risk Patients (6 to 64 Years) (1 of 2 - PCV) 02/12/2000 Cervical Cancer Screening: Pap Smear 2002 Hepatitis B Vaccines (2 of 3 - 19+ 3-dose series) 03/30/2013 03/02/2013 Social Influencers of Health Screening 01/24/2022 COVID-19 Vaccine (2 - Moderna risk series) 11/10/2022 10/13/2022 Influenza Vaccine (Season Ended) 2024 10/13/2022, 12/01/2017, 11/16/2017, Additional history exists Depression Screening 12/09/2024 12/10/2023 Breast Cancer Screening 09/08/2025 09/09/2023, 09/08 DTaP,Tdap,and Td Vaccines (3 - Td or Tdap) 01/05/2027 01/05/2017, 03/02/2013 Cholesterol Screening (Lipid Panel) 06/16/2029 06/16/2024, 06/17/2023, 06/17/2023 HIV Screening Completed 06/16/2024 Hepatitis C Screening Completed 06/16/2024 HIB Vaccines Aged Out No longer eligi ble based on patient's age to complete this topic HPV Vaccines Aged Out No longer eligi ble based on patient's age to complete this topic Hepatitis A Vaccines Aged Out No long er eligible based on patient's age to complete this topic IPV Vaccines Aged Out No longer eligi ble based on patient's age to complete this topic MMR Vaccines Aged Out No longer eligi ble based on patient's age to complete this topic Meningococcal ACWY Vaccine Aged Out N o longer eligible based on patient's age to complete this topic Meningococcal B Vaccine Aged Out No l onger eligible based on patient's age to complete this topic RSV Immunization Patients Under 20 months Aged Out No longer eligible based on patient's age to complete this topic Varicella Vaccines Aged Out No longer eligible based on patient's age to complete this topic Procedures Procedure Name Priority Date/Time Associated Diagnosis Comments CBC WITH AUTO DIFFERENTIAL Routine 06/16/2024 10:00 AM EDT H/O gastric sleeve IRON AND TIBC Routine 06/16/2024 10:00 AM EDT H/O gastric sleeve FOLATE Routine 06/16/2024 10:00 AM EDT H/O gastric sleeve FERRITIN Routine 06/16/2024 10:00 AM EDT H/O gastric sleeve CBC AND DIFFERENTIAL Routine 06/16/2024 10:00 AM EDT H/O gastric sleeve HEPATITIS C ANTIBODY Routine 06/16/2024 10:00 AM EDT Screen for STD (sexually transmitted disease) TREPONEMA PALLIDUM ANTIBODY WITH REFLEX TO RPR AND PARTICLE AGGLUTINATION Routine 06/16/2024 10:00 AM EDT Screen for STD (sexually transmitted disease) HIV 1, 2 ANTIBODY, P24 ANTIGEN WITH REFLEX TO DIFFERENTIATION Routine 06/16/2024 10:00 AM EDT Screen for STD (sexually transmitted disease) VITAMIN D 25 HYDROXY Routine 06/16/2024 10:00 AM EDT Routine adult health maintenance VITAMIN B12 Routine 06/16/2024 10:00 AM EDT Routine adult health maintenance THYROID STIMULATING HORMONE Routine 06/16/2024 10:00 AM EDT Routine adult health maintenance MAGNESIUM Routine 06/16/2024 10:00 AM EDT Routine adult health maintenance HEMOGLOBIN A1C Routine 06/16/2024 10:00 AM EDT Routine adult health maintenance COMPREHENSIVE METABOLIC PANEL Routine 06/16/2024 10:00 AM EDT Routine adult health maintenance LIPID PANEL WITH REFLEX TO DIRECT LDL Routine 06/16/2024 10:00 AM EDT Routine adult health maintenance HM DEPRESSION SCREENING Routine 12/10/2023 JOHN SCREENING DIGITAL Routine 09/09/2023 11:16 AM EDT Encounter for screening mammogram for malignant neoplasm of breast from Last 3 Months or Most Recently Relevant to Health Maintenance Results * Hepatitis C antibody (06/16/2024 10:00 AM EDT) Hepatitis C Antibody Negative Negative LAB CHEMISTRY METHOD 06/16/2024 3:00 PM EDT [facility] Blood Venous blood specimen / Unknown Venipuncture / Unknown 06/16/2024 10:00 AM EDT 06/16/2024 10:24 AM EDT [place] LAB BLOOD ORDERABLES Final Resul t Performing Organization Address [facility] de Phone Number [facility] [address] [place] [address], [place] [phone] * HIV 1,2 antibody, p24 antigen with reflex to differentiation (06/16/2024 10:00 AM EDT) HIV Combo AB/AG Negative Negative LAB CHEMISTRY METHOD 06/16/2024 3:00 PM EDT [facility] Blood Venous blood specimen / Unknown Venipuncture / Unknown 06/16/2024 10:00 AM EDT 06/16/2024 10:24 AM EDT Narrative [facility] - 06/16/2024 3:00 PM EDT This assay is a 4th generation assay allowing for earlier detection of HIV infection by detecting the presence of the HIV-1 p24 antigen as well as the traditional antibodies to HIV type 1 (including group O) and type 2. ??Use of a 4th generation assay is the current CDC recommendation for HIV screening. Carlos [place] LAB BLOOD ORDERABLES Final Resul t Performing Organization Address [facility] de Phone Number [facility] [address] [place] [address], [place] [phone] * Treponema pallidum antibody with reflex to RPR and particle agglutination (06/16/2024 10:00 AM EDT) T. Pallidum Antibodies Negative Negative LAB CHEMISTRY METHOD 06/16/2024 2:32 PM EDT [facility] Blood Venous blood specimen / Unknown Venipuncture / Unknown 06/16/2024 10:00 AM EDT 06/16/2024 10:24 AM EDT [place] LAB BLOOD ORDERABLES Final Resul t Performing Organization Address [facility]/ZIP Co de Phone Number [facility] [address] [place] [address], [place] [phone] * Lipid panel with reflex to direct LDL (06/16/2024 10:00 AM EDT) Cholesterol 175 0 - 200 mg/dL LAB CHEMISTRY METHOD 06/16/2024 1:23 PM EDT [facility] Triglycerides 88 0 - 150 mg/dL LAB CHEMISTRY METHOD 06/16/2024 1:23 PM EDT [facility] HDL 58 >=40 mg/dL LAB CHEMISTRY METHOD 06/16/2024 1:23 PM EDT [facility] LDL Calculated 99 0 - 100 mg/dL LAB CHEMISTRY METHOD 06/16/2024 1:23 PM EDT [facility] VLDL Cholesterol Nestor 17.6 mg/dL LAB CHEMISTRY METHOD 06/16/2024 1:23 PM EDT [facility] Non HDL Chol. (LDL+VLDL) 117 <145 mg/dL LAB CHEMISTRY METHOD 06/16/2024 1:23 PM EDT [facility] Chol/HDL Ratio 3.0 0.0 - 4.4 LAB CHEMISTRY METHOD 06/16/2024 1:23 PM EDT [facility] Blood Venous blood specimen / Unknown Venipuncture / Unknown 06/16/2024 10:00 AM EDT 06/16/2024 10:24 AM EDT us Carlos [place] NP LAB BLOOD ORDERABLES Final Resul t [facility] [address] [place] [address], [place] [phone] * (ABNORMAL) CBC auto differential (06/16/2024 10:00 AM EDT) WBC 5.4 4.8 - 10.8 K/[facility] LAB HEMETOLOGY METHOD 06/16/2024 10:[address] [facility] RBC 4.50 3.80 - 4.80 M/mcL LAB HEMETOLOGY METHOD 06/16/2024 10:[address] [facility] Hemoglobin 11.8 11.5 - 16.0 g/dL LAB HEMETOLOGY METHOD 06/16/2024 10:[address] [facility] Hematocrit 37.2 35.0 - 47.0 % LAB HEMETOLOGY METHOD 06/16/2024 10:[address] [facility] MCV 82.1 79.0 - 98.0 FL LAB HEMETOLOGY METHOD 06/16/2024 10:[address] [facility] MCH 26.0(L) 27.0 - 32.0 pcg LAB HEMETOLOGY METHOD 06/16/2024 10:[address] [facility] MCHC 31.7(L) 32.0 - 37.0 g/dL LAB HEMETOLOGY METHOD 06/16/2024 10:[address] [facility] RDW 13.1 11.0 - 15.0 % LAB HEMETOLOGY METHOD 06/16/2024 10:[address] [facility] Platelets 257 130 - 400 K/mcL LAB HEMETOLOGY METHOD 06/16/2024 10:[address] [facility] MPV 9.3 7.0 - 11.0 FL LAB HEMETOLOGY METHOD 06/16/2024 10:[address] [facility] NRBC 0.0 <1.0 % LAB HEMETOLOGY METHOD 06/16/2024 10:[address] [facility] NRBC Absolute 0.00 <0.10 K/mcL LAB HEMETOLOGY METHOD 06/16/2024 10:[address] [facility] Neutrophils Relative 56.2 % LAB HEMETOLOGY METHOD 06/16/2024 10:[address] [facility] Lymphocytes Relative 35.6 % LAB HEMETOLOGY METHOD 06/16/2024 10:[address] [facility] Monocytes Relative 6.3 % LAB HEMETOLOGY METHOD 06/16/2024 10:[address] [facility] Eosinophils Relative 1.1 % LAB HEMETOLOGY METHOD 06/16/2024 10:[address] [facility] Basophils Relative 0.6 % LAB HEMETOLOGY METHOD 06/16/2024 10:[address] [facility] Immature Granulocytes Relative 0.2 % LAB HEMETOLOGY METHOD 06/16/2024 10:[address] [facility] Neutrophils Absolute 3.04 1.50 - 7.00 K/mcL LAB HEMETOLOGY METHOD 06/16/2024 10:[address] [facility] Lymphocytes Absolute 1.92 1.00 - 5.00 K/mcL LAB HEMETOLOGY METHOD 06/16/2024 10:[address] [facility] Monocytes Absolute 0.34 0.20 - 1.00 K/mcL LAB HEMETOLOGY METHOD 06/16/2024 10:[address] [facility] Eosinophils Absolute 0.06 0.00 - 0.50 K/mcL LAB HEMETOLOGY METHOD 06/16/2024 10:[address] [facility] Basophils Absolute 0.03 0.00 - 0.20 K/mcL LAB HEMETOLOGY METHOD 06/16/2024 10:[address] [facility] Immature Granulocytes Absolute 0.01 0.00 - 0.03 K/mcL LAB HEMETOLOGY METHOD 06/16/2024 10:[address] [facility] Blood Venous blood specimen / Unknown Venipuncture / Unknown 06/16/2024 10:00 AM EDT 06/16/2024 10:22 AM EDT us [place] BUSINESS MANAGEMENT CONSULTANT LAB BLOOD ORDERABLES Final Resul t Performing Organization Address [facility]/ZIP Co de Phone Number [facility] [address] [place] [address], [place] [phone] * (ABNORMAL) Iron and TIBC (06/16/2024 10:00 AM EDT) Iron 52 40 - 150 mcg/dL LAB CHEMISTRY METHOD 06/16/2024 12:59 PM EDT [facility] TIBC 414 250 - 450 mcg/dL LAB CHEMISTRY METHOD 06/16/2024 12:59 PM EDT [facility] Iron Saturation 13(L) 15 - 50 % LAB CHEMISTRY METHOD 06/16/2024 12:59 PM EDT [facility] Blood Venous blood specimen / Unknown Venipuncture / Unknown 06/16/2024 10:00 AM EDT 06/16/2024 10:24 AM EDT us Carlos [place] BUSINESS MANAGEMENT CONSULTANT LAB BLOOD ORDERABLES Final Resul t Performing Organization Address [facility] de Phone Number [facility] [address] [place] [address], [place] [phone] * (ABNORMAL) Vitamin D 25 hydroxy (06/16/2024 10:00 AM EDT) Vit D, 25-Hydroxy 24.7(L) 30.0 - 80.0 ng/mL LAB CHEMISTRY METHOD 06/16/2024 2:20 PM EDT [facility] Blood Venous blood specimen / Unknown Venipuncture / Unknown 06/16/2024 10:00 AM EDT 06/16/2024 10:24 AM EDT us Carlos [place] BUSINESS MANAGEMENT CONSULTANT LAB BLOOD ORDERABLES Final Resul t [facility] [address] [place] [address], * Thyroid stimulating hormone (06/16/2024 10:00 AM EDT) [facility] TSH 1.61 0.40 - 4.00 mcIU/mL LAB CHEMISTRY METHOD 06/16/2024 2:22 PM EDT [facility] Blood Venous blood specimen / Unknown Venipuncture / Unknown 06/16/2024 10:00 AM EDT 06/16/2024 10:24 AM EDT Carlos [place] NP LAB BLOOD ORDERABLES Final Resul t Performing Organization Address [facility]/ZIP Co de Phone Number [facility] [address] [place] [address], * Magnesium (06/16/2024 10:00 AM EDT) [facility] Magnesium 2.2 1.9 - 2.6 mg/dL LAB CHEMISTRY METHOD 06/16/2024 12:59 PM EDT [facility] Blood Venous blood specimen / Unknown Venipuncture / Unknown 06/16/2024 10:00 AM EDT 06/16/2024 10:24 AM EDT us Carlos [place] NP LAB BLOOD ORDERABLES Final Resul t [facility] [address] [place] [address], [place] [phone] * Hemoglobin A1c (06/16/2024 10:00 AM EDT) [facility] Hemoglobin A1C 6.0 <6.5 % LAB CHEMISTRY METHOD 06/16/2024 12:57 PM EDT [facility] Mean Bld Glu Estim. 126 mg/dL LAB CHEMISTRY METHOD 06/16/2024 12:57 PM EDT [facility] Blood Venous blood specimen / Unknown Venipuncture / Unknown 06/16/2024 10:00 AM EDT 06/16/2024 10:22 AM EDT us Carlos [place] BUSINESS MANAGEMENT CONSULTANT LAB BLOOD ORDERABLES Final Resul t Performing Organization Address [facility]/ZIP Co de Phone Number [facility] [address] [place] [address], [place] [phone] * (ABNORMAL) Folate (06/16/2024 10:00 AM EDT) Folate 18.7(H) 2.8 - 17.0 ng/ml LAB CHEMISTRY METHOD 06/16/2024 1:23 PM EDT [facility] Blood Venous blood specimen / Unknown Venipuncture / Unknown 06/16/2024 10:00 AM EDT 06/16/2024 10:24 AM EDT us Carlos [place] BUSINESS MANAGEMENT CONSULTANT LAB BLOOD ORDERABLES Final Resul t Performing Organization Address [facility]/ZIP Co de Phone Number [facility] [address] [place] [address], [place] [phone] * Ferritin (06/16/2024 10:00 AM EDT) Ferritin 11 8 - 252 ng/mL LAB CHEMISTRY METHOD 06/16/2024 1:23 PM EDT [facility] Blood Venous blood specimen / Unknown Venipuncture / Unknown 06/16/2024 10:00 AM EDT 06/16/2024 10:24 AM EDT us Carlos [place] BUSINESS MANAGEMENT CONSULTANT LAB BLOOD ORDERABLES Final Resul t Performing Organization Address [facility]/ZIP Co de Phone Number [facility] [address] [place] [address], [place] [phone] * Vitamin B12 (06/16/2024 10:00 AM EDT) Pathologist [facility] [place] Vitamin B-12 354 250 - 900 pcg/mL LAB CHEMISTRY METHOD 06/16/2024 1:[address] [facility] Blood Venous blood specimen / Unknown Venipuncture / Unknown 06/16/2024 10:00 AM EDT 06/16/2024 10:24 AM EDT us Carlos [place] BUSINESS MANAGEMENT CONSULTANT LAB BLOOD ORDERABLES Final Resul t [facility] [address] [place] [address], * (ABNORMAL) Comprehensive metabolic panel (06/16/2024 10:00 AM EDT) [facility] Sodium 139 133 - 145 mmol/L LAB CHEMISTRY METHOD 06/16/2024 1:[address] [facility] Potassium 4.3 3.5 - 5.5 mmol/L LAB CHEMISTRY METHOD 06/16/2024 1:[address] [facility] Chloride 105 96 - 110 mmol/L LAB CHEMISTRY METHOD 06/16/2024 1:[address] [facility] CO2 26 21 - 32 mmol/L LAB CHEMISTRY METHOD 06/16/2024 1:[address] [facility] Anion Gap 8 3 - 11 LAB CHEMISTRY METHOD 06/16/2024 1:[address] [facility] Glucose 96 70 - 100 mg/dL LAB CHEMISTRY METHOD 06/16/2024 1:[address] [facility] BUN 18 5 - 25 mg/dL LAB CHEMISTRY METHOD 06/16/2024 1:[address] [facility] Creatinine 0.69 0.50 - 1.10 mg/dL LAB CHEMISTRY METHOD 06/16/2024 1:[address] [facility] eGFR 111 >=60 mL/min/1. 73m2 LAB CHEMISTRY METHOD 06/16/2024 1:23 PM T [facility] Comment:Calculation based on the??Chronic Kidney Disease Epidemiology Collaboration (CKD-EPI) equation refit??without adjustment for race. BUN/Creatinine Ratio 26.1 LAB CHEMISTRY METHOD 06/16/2024 1:[address] [facility] Calcium 9.2 8.5 - 10.5 mg/dL LAB CHEMISTRY METHOD 06/16/2024 1:[address] [facility] AST (SGOT) 9(L) 10 - 42 unit/L LAB CHEMISTRY METHOD 06/16/2024 1:[address] [facility] ALT (SGPT) 21 10 - 60 unit/L LAB CHEMISTRY METHOD 06/16/2024 1:[address] [facility] Alkaline Phosphatase 83 42 - 121 unit/L LAB CHEMISTRY METHOD 06/16/2024 1:[address] [facility] Total Protein 7.0 6.0 - 8.0 g/dL LAB CHEMISTRY METHOD 06/16/2024 1:[address] [facility] Albumin 3.8 3.2 - 5.0 g/dL LAB CHEMISTRY METHOD 06/16/2024 1:[address] [facility] Total Bilirubin 0.3 0.0 - 1.4 mg/dL LAB CHEMISTRY METHOD 06/16/2024 1:[address] [facility] Blood Venous blood specimen / Unknown Venipuncture / Unknown 06/16/2024 10:00 AM EDT 06/16/2024 10:24 AM EDT us [place] NP LAB BLOOD ORDERABLES Final Resul t [facility] [address] [place] [address], * Depression Screening (12/10/2023) [facility] Depression Screening abstracted us Historical Provider HEALTH MAINTENANCE Final Result * [facility] SCREENING DIGITAL (09/09/2023 11:16 AM EDT) Anatomical Region Laterality Modality Mammography 09/09/2023 9:48 AM EDT Narrative 09/09/2023 11:16 AM EDT [facility] Diagnostic Imaging Department [address] [place] [id number] Patient: ??TOMMIE BARRETT ?/Age/Sex: 1980 - 43 - F Unit#: ??[id number] ? Location/Status: ??SPDIMAM/REG CLI ? Mnemonic/Ordering Site: ??DIGSC/SPMAM Ordering Physician: ??NERISSA ROBERTSON MD [facility] Screening Digital - 09/09/23 - 1004 Report Status:Signed EXAM: [facility] Screening Digital EXAM DATE AND TIME: 09/09/2023 10:04 AM HISTORY: ??Baseline screening COMPARISON: ??None TECHNIQUE: Bilateral digital breast tomosynthesis was performed in the CC and MLO projections. Computer aided detection with [email or web address] 7.2-H and [employer] 3D 3.1 was employed. TISSUE DENSITY: b. There are scattered areas of fibroglandular density. FINDINGS: There is a 2.0 cm oval mass in the right lateral breast with possible adjacent 8 mm nodule at posterior depth. ??There is a 7 mm oval mass in the right upper outer quadrant at middle depth. ??No suspicious masses, grouped microcalcifications, or areas of architectural distortion are seen in the left breast. The skin and vascularity are unremarkable. IMPRESSION: 1. ??7 mm mass in the right upper outer quadrant. ??Recommend targeted ultrasound. 2. ??2 cm oval mass in the right lateral breast. ??Recommend targeted ultrasound. A negative mammogram in the presence of a clinically suspicious palpable abnormality does not preclude the possibility of malignancy or alter the indications for biopsy. BI-RADS: ??Category 0: Incomplete - Need Additional Imaging Evaluation RECOMMENDATION(S): 1: Right breast ultrasound. Dictating Physician: ??MARIO ALBERTO PYLE MD Electronically Signed by: ??MARIO ALBERTO PYLE MD Dic Date/Time: ??09/09/23 1104 Sign date/Time: ??09/09/23 1116 Procedure Note Mario Alberto Pyle MD - 12/01/2023 [facility] Diagnostic Imaging Department [address] [place] [address] Patient: TOMMIE BARRETT /Age/Sex: 1980 - 43 - F Unit#: [id number] [facility] Mnemonic/Ordering Site: [facility] Ordering Physician: NERISSA ROBERTSON MD [facility] Screening Digital - 09/09/23 - 1004 Report Status:Signed EXAM: [facility] Screening Digital EXAM DATE AND TIME: 09/09/2023 10:04 AM HISTORY: Baseline screening COMPARISON: None TECHNIQUE: Bilateral digital breast tomosynthesis was performed in the CCand MLO projections. Computer aided detection with [employer]H [employer] 3D 3.1 was employed. TISSUE DENSITY: b. There are scattered areas of fibroglandular density. FINDINGS: There is a 2.0 cm oval mass in the right lateral breast with possibleadjacent 8 mm nodule at posterior depth. There is a 7 mm oval mass in the rightupper outer quadrant at middle depth. No suspicious masses, grouped microcalcifications, or areas of architectural distortion are seen in theleft breast. The skin and vascularity are unremarkable. IMPRESSION: 1. 7 mm mass in the right upper outer quadrant. Recommend targeted ultrasound. 2. 2 cm oval mass in the right lateral breast. Recommend targetedultrasound. A negative mammogram in the presence of a clinically suspicious palpable abnormality does not preclude the possibility of malignancy or alter the indications for biopsy. BI-RADS: Category 0: Incomplete - Need Additional Imaging Evaluation RECOMMENDATION(S): 1: Right breast ultrasound. Dictating Physician: MARIO ALBERTO PYLE MD Electronically Signed by: MARIO ALBERTO PYLE MD Dic Date/Time: 09/09/23 1104 Sign date/Time: 09/09/23 1116 Nerissa Robertson MD IMG BI PROCEDURES Final Result from Last 3 Months or Most Recently Relevant to Health Maintenance Insurance [facility] Care Teams Security Guards Dispatcher Relationship Specialty Start Date End Date Nerissa Robertson MD [facility] [address] [id number] PCP - General Internal Medicine 03/14/24
--- OUTSIDE RECORDS SUMMARY | 2024-06-28 10:28 | XMS_ITS | Encounter Summary ---
Author Organization [facility] Address [address] [place] [address] Care Team Providers Care Inspection Manager Name Role Phone JamelCookie Primary Care Provider [phone] Encounter Details Date Type Department Care Team (Late st Contact Info) Description 01/04/2018 Orders Only [facility]. Rheumatology [address] [place] [id number] Cait Walters MD [address] [place] [address] Social History Tobacco Use Types Packs/Day Years Used Date Smoking Tobacco: Never Smokeless Tobacco: Never Comments Unknown Sex and Gender Information Value Date Recorded Sex Assigned at Not on file Legal Sex Female 9:23 AM EDT Gender Identity Not on file Sexual Orientation Not on file documented as of this encounter Plan of Treatment Not on file documented as of this encounter Procedures * Due to [place] Z[place] law, this organization might not be sharing negative HIV tests. Procedure Name Priority Date/Time Associated Diagnosis Comments THYROID STIMULATING HORMONE (TSH) WITH FREE T4 REFLEX, SERUM Routine 01/04/2018 11:59 AM EST Hair loss documented in this encounter Results * Due to [place] law, this organization might not be sharing negative HIV tests. * THYROID STIMULATING HORMONE (TSH) WITH FREE T4 REFLEX, SERUM (01/04/2018 11:59 AM EST) TSH 1.48 mIU/L [facility] Comment: ?Reference Range ?> or = 20 Years ??0.40-4.50 ? Ranges ?First trimester ?0.26-2.66 ?Second trimester ?? 0.55-2.73 ?Third trimester ?0.43-2.91 01/04/2018 11:5 9 AM EST 01/04/2018 6:18 PM EST Narrative Resulting Agency Comment [id number] Cait Walters MD LABORATORY Final Result Performing Organization Address City/State/[facility] Co de Phone Number [facility] [address] [place] [address] documented in this encounter Visit Diagnoses Diagnosis Hair loss Alopecia, unspecified documented in this encounter Care Teams Inspection Manager Relationship Specialty Start Date End Date Cookie Mccullough DO [address] [place] [id number] PCP - General Family Medicine 07/22/17 documented as of this encounter
--- OUTSIDE RECORDS SUMMARY | 2024-06-28 10:29 | XMS_ITS | Data Portability ---
Author Organization [facility] - IP Address [address] [place] [address] Care Team Providers Care Rectifier Operator Name Role Phone RADHA NOEL Primary Care Provider Assessment No assessment recorded. Plan of Treatment Reminders Order Date Submit Date Provider Last Modified By Organization Details Last Modified Time Details Appointments None record ed. Lab None record ed. Referral None record ed. Procedures None record ed. Surgeries None record ed. Imaging None record ed. Medication Orders None record ed. Patient TargetsNo targets recorded. Patient InstructionsNo instructions recorded. Reason for Referral None Reported. Results Created Date Observation Date Name Description Value Unit Range Abnormal Flag Note LastModifiedBy Organization Detail LastModifiedTime Result Notes None recorded. Problems Name Problem SNOMED Code Status Onset Date Resolution Date Notes Provider Name and Address Organization Details Recorded Time Fibromyalgia 212053300 Active 2017 PABLO Machado [facility] 8 14:39:46 Lupus erythematosus 511636900 Active 2017 PABLO Machado [facility] 8 14:39:52 Problem Notes None recorded. Medical Equipment None Reported. Allergies No known drug allergies Medications Name Sig Start Date Stop Date Status Note LastModified by Organization Details LastModified Time Prilosec active Not Available Not Avai lable Not Available Golytely 236 gram-22.74 gram-6.74 gram-5.86 gram oral solution Take 4000 mL every day by oral route as directed for 1 day. 018 active Not Available Not Available Not Avai lable Vitals Date Recorded Body height Body mass index (BMI) Body weight Heart rate Systolic blood pressure Diastolic blood pressure Provider Name and Address Organization Details Last Updated DateTime 8 167.64 cm 40.3 kg/m2 519127. 37 g 81 /min 113 mm[Hg] 75 mm[Hg] Mirela Mac [facility] 8 14:37:54 Date Recorded Body height Body mass index (BMI) Body weight Heart rate Systolic blood pressure Diastolic blood pressure Provider Name and Address Organization Details Last Updated DateTime 9 167.64 cm 37.6 kg/m2 290599. 74 g 69 /min 119 mm[Hg] 80 mm[Hg] Mirela Hidalgo [facility] 9 11:37:26 Social History Question Answer Notes LastModified by Organizat ion Details LastModified Time Tobacco Smoking Status Never Smoker PABLO Machado [facility] 02/10/2018 14:40:35 What Was The Date Of Your Most Recent Tobacco Screening? 07/06/2018 Information n ot available 09/07/2018 Sex: Unknown Functional Status None recorded. Mental Status None recorded. Family History Relationship Description Onset Age of this Age Resolved Age Notes LastModified by Organization Details LastModified Time Maternal Grandfather Malignant tumor of colon [email or web address] Not available 2017 14:40:21 Maternal Grandmother Malignant tumor of stomach [email or web address] Not available 2017 14:40:31 Medical History Condition Response Hypertension N Gynecological HistoryNo gynecological history recorded. Obstetrics History GPAL:G 0 P 0 0 0 0 Immunizations Vaccine Type Date Status Note Provider Nam e and Address Organization Details Recorded Time Influenza, split virus, quadrivalent, preservative 8 completed PABLO Machado [facility] 02/10/2018 14:39:18 Past Encounters Encounter ID Performer Location Encounter Start Date Encounter Closed Date Diagnosis/Indication Diagnosis SNOMED-CT Code Diagnosis ICD10 Code Diagnosis Note [id number] [facility] [address] [place] [phone] 02/10/2018 14:30:04 02/10/2018 15:10:17 [id number] MD [facility] [address] [place] [phone] 07/06/2018 11:35:14 07/06/2018 21:19:54 Health Concerns Section Related Observation LastModified by Organization Detai ls LastModified Time None Recorded Concern Status LastModified by Organization Details LastModified Time None Recorded Advance Directives Directive None Recorded Payers Insurance Date Sequence Insurance Name Policy Number Policy Land Covered Member ID Land Member ID Guarantor Name 07/03/2018 1 [place] [facility] Adriana Ribera [id number] Adriana Ribera OBGyn Episode No OBEpisode recorded.
--- OUTSIDE RECORDS SUMMARY | 2024-06-28 10:29 | XMS_ITS | Encounter Summary ---
Author Organization [facility] Address [address] [place] [address] Care Team Providers Care Technical Inspector Name Role Phone JamelCookie swenson Primary Care Provider [phone] Encounter Details Date Type Department Care Team (Late st Contact Info) Description 09/03/2017 Orders Only [facility] Rheumatology [address] [place] [phone] Cait Walters MD [address] [place] [address] Social History Tobacco Use Types Packs/Day Years [...] of this encounter Procedures * Due to [place] state law, this organization might not be sharing negative HIV tests. Procedure Name Priority Date/Time Associated Diagnosis Comments KERWIN IFA, W/ REFLEX TO TITER/PATTERN/COMPREHE NSIVE AB PANEL Routine 09/03/2017 1:39 PM EDT Arthralgia, unspecified joint RHEUMATOID ARTHRITIS DIAGNOSTIC PANEL Routine 09/03/2017 1:39 PM EDT Arthralgia, unspecified joint CHROMATIN (NUCLEOSOMAL) ANTIBODY Routine 09/03/2017 1:39 PM EDT SM/PIANO TUNER ANTIBODY Routine 09/03/2017 1:39 PM EDT Arthralgia, unspecified joint PIANO TUNER ANTIBODY Routine 09/03/2017 1:39 PM EDT SM ANTIBODY Routine 09/03/2017 1:39 PM EDT NIYA-1 ANTIBODY Routine 09/03/2017 1:39 PM EDT SCLERODERMA 70 ANTIBODY (SCL-70) Routine 09/03/2017 1:39 PM EDT SJOGRENS SYNDROME ANTIBODIES (SSA AND SSB) Routine 09/03/2017 1:39 PM EDT Arthralgia, unspecified joint DNA (DS) ANTIBODY Routine 09/03/2017 1:3 9 PM EDT Arthralgia, unspecified joint C-REACTIVE PROTEIN (CRP) - INFLAMMATION Routine 09/03/2017 1:39 PM EDT Arthralgia, unspecified joint CENTROMERE B ANTIBODY Routine 09/03/2017 1:39 PM EDT ERYTHROCYTE SEDIMENTATION RATE (ESR) Routine 09/03/2017 1:39 PM EDT Arthralgia, unspecified joint CBC INCLUDES DIFFERENTIAL AND PLATELET COUNT Routine 09/03/2017 1:39 PM EDT Arthralgia, unspecified joint TSH, 3RD GENERATION Routine 09/03/2017 1 :39 PM EDT Arthralgia, unspecified joint RIBOSOMAL P ANTIBODY Routine 09/03/2017 1:39 PM EDT COMPREHENSIVE METABOLIC PANEL WITH GFR Routine 09/03/2017 1:39 PM EDT Arthralgia, unspecified joint documented in this encounter Results * Due to [place] state law, this organization might not be sharing negative HIV tests. * SM ANTIBODY (09/03/2017 1:39 PM EDT) Santana extractable nuclear Ab <1.0 NEG <1.0 NEG AI [facility] 09/03/2017 1:39 PM EDT 09/03/2017 10:38 PM EDT us Cait Walters MD LABORATORY Final Result Performing Organization Address [facility] Co de Phone Number [facility] [address] [place] [address] * CHROMATIN (NUCLEOSOMAL) ANTIBODY (09/03/2017 1:39 PM EDT) Nucleosome Ab <1.0 NEG <1.0 NEG AI [facility] 09/03/2017 1:39 PM EDT 09/03/2017 10:38 PM EDT us Cait Walters MD LABORATORY Final Result Performing Organization Address [facility] de Phone Number [facility] [address] [place] [address] * PIANO TUNER ANTIBODY (09/03/2017 1:39 PM EDT) Ribonucleoprotein extractable nuclear Ab <1.0 NEG <1.0 NEG AI [facility] 09/03/2017 1:39 PM EDT 09/03/2017 10:38 PM EDT us Cait Walters MD LABORATORY Final Result Performing Organization Address [facility] de Phone Number [facility] [address] [place] [address] * CENTROMERE B ANTIBODY (09/03/2017 1:39 PM EDT) Centromere protein B Ab <1.0 NEG <1.0 NEG AI [facility] 09/03/2017 1:39 PM EDT 09/03/2017 10:38 PM EDT us Cait Walters MD LABORATORY Final Result Performing Organization Address [facility] Co de Phone Number [facility] [address] [place] [address] * NIYA-1 ANTIBODY (09/03/2017 1:39 PM EDT) Niya-1 extractable nuclear Ab <1.0 NEG <1.0 NEG AI [facility] 09/03/2017 1:39 PM EDT 09/03/2017 10:38 PM EDT Cait Walters MD LABORATORY Final Result Performing Organization Address [facility] de Phone Number [facility] [address] [place] [address] * SCLERODERMA 70 ANTIBODY (SCL-70) (09/03/2017 1:39 PM EDT) SCL-70 extractable nuclear Ab <1.0 NEG <1.0 NEG AI [facility] 09/03/2017 1:39 PM EDT 09/03/2017 10:38 PM EDT Ciat Walters MD LABORATORY Final Result Performing Organization Address [facility] de Phone Number [facility] [address] [place] [address] * RIBOSOMAL P ANTIBODY (09/03/2017 1:39 PM EDT) Ribosomal P Ab <1.0 NEG <1.0 NEG AI [facility] 09/03/2017 1:39 PM EDT 09/03/2017 10:38 PM EDT us Cait Walters MD LABORATORY Final Result Performing Organization Address [facility] de Phone Number [facility] [address] [place] [address] * TSH, 3RD GENERATION (09/03/2017 1:39 PM EDT) TSH 1.39 mIU/L [facility] Comment: ?Reference Range ?> or = 20 Years ??0.40-4.50 ? Ranges ?First trimester ?0.26-2.66 ?Second trimester ?? 0.55-2.73 ?Third trimester ?0.43-2.91 09/03/2017 1:39 PM EDT 09/03/2017 10:38 PM EDT Narrative Resulting Agency Comment [id number] Cait Walters MD LABORATORY Final Result Performing Organization Address [facility] de Phone Number [facility] [address] [place] [address] * SJOGRENS SYNDROME ANTIBODIES (SSA AND SSB) (09/03/2017 1:39 PM EDT) Sjogrens syndrome-A extractable nuclear Ab <1.0 NEG <1.0 NEG AI [facility] Sjogrens syndrome-B extractable nuclear Ab <1.0 NEG <1.0 NEG AI [facility] 09/03/2017 1:39 PM EDT 09/03/2017 10:38 PM EDT Narrative Resulting Agency Comment [id number] Cait Walters MD LABORATORY Final Result Performing Organization Address [facility] de Phone Number [facility] [address] [place] [address] * ERYTHROCYTE SEDIMENTATION RATE (ESR), WESTERGREN (09/03/2017 1:39 PM EDT) Sedimentation Rate [place] (ESR) 9 < OR = 20 mm/h [facility] 09/03/2017 1:39 PM EDT 09/03/2017 10:38 PM EDT Narrative Resulting Agency Comment [id number] Cait Walters MD LAB SAME DAY RESULT Final Result Performing Organization Address [facility] de Phone Number [facility] [address] [place] [address] * RHEUMATOID ARTHRITIS DIAGNOSTIC PANEL (09/03/2017 1:39 PM EDT) Rheumatoid Factor (Quant) <14 <14 IU/mL [facility] CCP Ab, IgG <16 UNITS [facility] Comment: Reference Range Negative: ?<20 Weak Positive: ? 20-39 Moderate Positive: ?? 40-59 Strong Positive: ? >59 INTERPRETATION SEE NOTE [facility] Comment: These serologic results may be found in 10-20% of patients with polyarthritis that is clinically and radiologically indistinguishable from RA. 09/03/2017 1:39 PM EDT 09/03/2017 10:38 PM EDT Narrative Resulting Agency Comment [id number] us Cait Walters MD LABORATORY Final Result Performing Organization Address [facility]/ZIP Co de Phone Number [facility] [address] [place] [address] * C-REACTIVE PROTEIN (CRP) - INFLAMMATION (09/03/2017 1:39 PM EDT) C reactive protein 7.0 <8.0 mg/L [facility] 09/03/2017 1:39 PM EDT 09/03/2017 10:38 PM EDT Narrative Resulting Agency Comment [id number] us Cait Walters MD LABORATORY Final Result Performing Organization Address [facility] Co de Phone Number [facility] [address] [place] [address] * (ABNORMAL) COMPREHENSIVE METABOLIC PANEL WITH GFR (09/03/2017 1:39 PM EDT) Glucose 132(H) 65 - 99 mg/dL [facility] Comment: ? Fasting reference interval For someone without known diabetes, a glucose value >125 mg/dL indicates that they may have diabetes and this should be confirmed with a follow-up test. Urea Nitrogen Blood (BUN) 18 7 - 25 mg/dL [facility] Creatinine 0.61 0.50 - 1.10 mg/dL [facility] GFR 117 > OR = 60 mL/min/1 .73m2 [facility] GFR () 135 > OR = 60 mL/min/1 .73m2 [facility] BUN/Creatinine Ratio NOT APPLICABLE 6 - 22 (calc) [facility] Sodium 137 135 - 146 mmol/L [facility] Potassium 4.1 3.5 - 5.3 mmol/L [facility] Chloride 104 98 - 110 mmol/L [facility] Carbon dioxide 26 20 - 31 mmol/L [facility] Calcium 9.6 8.6 - 10.2 mg/dL [facility] Protein Total (Serum) 6.7 6.1 - 8.1 g/dL [facility] Albumin 4.2 3.6 - 5.1 g/dL [facility] Globulin 2.5 1.9 - 3.7 g/dL (calc) [facility] Albumin/Globuli n 1.7 1.0 - 2.5 (calc) [facility] Bilirubin Total 0.3 0.2 - 1.2 mg/dL [facility] Alkaline phosphatase 75 33 - 115 U/L [facility] AST (SGOT) 31(H) 10 - 30 U/L [facility] ALT (SGPT) 59(H) 6 - 29 U/L [facility] 09/03/2017 1:39 PM EDT 09/03/2017 10:38 PM EDT Narrative [facility] - 09/04/2017 3:06 AM EDT Please note that this estimated GFR does not include an adjustment for the patient's height or weight, and can therefore, be viewed as reliable only for patients with heights between 60 and 72 . More precise quantification using a 24-hour urine sample or height-based algorithm is recommended for patients outside of this range of height and for those individuals with more precise needs for GFR calculation. Resulting Agency Comment [id number] Cait Walters MD LABORATORY Final Result [facility] [address] [place] [address] * CBC INCLUDES DIFFERENTIAL AND PLATELET COUNT (09/03/2017 1:39 PM EDT) WBC 5.2 3.8 - 10.8 Thousand/u L [facility] RBC 4.64 3.80 - 5.10 Million/uL [facility] Hemoglobin 13.4 11.7 - 15.5 g/dL [facility] Hematocrit 38.7 35.0 - 45.0 % [facility] MCV 83.4 80.0 - 100.0 fL [facility] MCH 28.9 27.0 - 33.0 pg [facility] MCHC 34.6 32.0 - 36.0 g/dL [facility] RDW 12.9 11.0 - 15.0 % [facility] PLT 257 140 - 400 Thousand/u L [facility] MPV 10.0 7.5 - 12.5 fL [facility] Neutrophils # 2548 1500 - 7800 cells/uL [facility] Lymphocytes # 2174 850 - 3900 cells/uL [facility] Monocytes # 380 200 - 950 cells/uL [facility] Eosinophils # 68 15 - 500 cells/uL [facility] Basophils # 31 0 - 200 cells/uL [facility] Neutrophils % 49 % [facility] Lymphocytes % 41.8 % [facility] Monocytes % 7.3 % [facility] Eosinophils % 1.3 % [facility] Basophils % 0.6 % [facility] 09/03/2017 1:39 PM EDT 09/03/2017 10:38 PM EDT Narrative Resulting Agency Comment [id number] Cait Walters MD LAB SAME DAY RESULT Final Result Performing Organization Address City/[facility]/ZIP Co de Phone Number [facility] [address] [place] [address] * SM/PIANO TUNER ANTIBODY (09/03/2017 1:39 PM EDT) Santana extractable nuclear Ab+Ribonucleopr otein extractable nuclear Ab <1.0 NEG <1.0 NEG AI [facility] 09/03/2017 1:39 PM EDT 09/03/2017 10:38 PM EDT Narrative Resulting Agency Comment [id number] Cait Walters MD LABORATORY Final Result Performing Organization Address [facility] Co de Phone Number [facility] [address] [place] [address] * DNA (DS) ANTIBODY (09/03/2017 1:39 PM EDT) Dna (DS) Antibody <1 IU/mL [facility] Comment: ? IU/mL ? Interpretation ? < or = 4 ?Negative ? 5-9 ? Indeterminate ? > or = 10 ?? Positive 09/03/2017 1:39 PM EDT 09/03/2017 10:38 PM EDT Narrative Resulting Agency Comment [id number] Cait Walters MD LABORATORY Final Result [facility] [address] [place] [address] * (ABNORMAL) KERWIN IFA, W/ REFLEX TO TITER/PATTERN/COMPREHENSIVE AB PANEL (09/03/2017 1:39 PM EDT) KERWIN IFA POSITIVE( A) NEGATIVE [facility] Comment: KERWIN IFA is a first line screen for detecting the presence of up to approximately 150 autoantibodies in various autoimmune diseases. A positive KERWIN IFA result is suggestive of autoimmune disease and reflexes to titer and pattern. Further laboratory testing may be considered if clinically indicated. Visit Physician FAQs for interpretation of all antibodies in the [place], prevalence, and association with diseases at http://education.[employer] faq/XGT596 KERWIN Pattern SPECKLED( A) [facility] Comment: CELL CYCLE DEPENDENT, NOT PCNA. Speckled pattern is associated with mixed connective tissue disease (MCTD), systemic lupus erythematosus (SLE), Sjogren's syndrome, dermatomyositis, and systemic sclerosis/polymyositis overlap. Anti-Nuclear Ab Titer 1:80(H) titer [facility] Comment: A low level KERWIN titer may be present in pre-clinical autoimmune diseases and normal individuals. ?Reference Range ?<1:40 ?Negative ?1:40-1:80 ?Low Antibody Level ?>1:80 ?Elevated Antibody Level 09/03/2017 1:39 PM EDT 09/03/2017 10:38 PM EDT Narrative Resulting Agency Comment [id number] us Cait Walters MD LABORATORY Final Result [facility] [address] [place] [address] documented in this encounter Visit Diagnoses Diagnosis Arthralgia, unspecified joint documented in this encounter Care Teams Technical Inspector Relationship Specialty Start Date End Date Cookie Mccullough DO [address] [place] [id number] PCP - General Family Medicine 07/22/17 documented as of this encounter
== END 2024-06-28 10:41 | disposition home or self-care (01) ==
LOC: HO.HBS 09:47
PROVIDERS: PCP Internal Medicine; Visit Provider Physician Assistant Surgical
DX: E66.9 Obesity, unspecified (principal); Z68.36 Body mass index [BMI] 36.0-36.9, adult; Z98.84 Bariatric surgery status
CPT/HCPCS: 99214; G2211

== ENCOUNTER → 2024-06-28 09:47 | Outpatient (BNVA) | payer OTHER, SELFPAY | PROVIDERS: PCP Internal Medicine; Visit Provider Physician Assistant Surgical | DX: E66.9 Obesity, unspecified (principal); Z68.36 Body mass index [BMI] 36.0-36.9, adult; Z98.84 Bariatric surgery status | CPT/HCPCS: 99212 ==

== ENCOUNTER 2024-11-16 17:35 | Emergency (ER) | payer OTHER, SELFPAY ==
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
[2024-11-16 17:41] VITALS: BP 185/77; PULSE 81; RESP 18; TEMP 37; O2SAT 98; BMI 33.9
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
--- OUTSIDE RECORDS SUMMARY | 2024-11-16 19:39 | XMS_ITS | Clinical Summary ---
Author Organization [facility] Address [address] [place] [address] Care Team Providers [facility] [place] Superintendent Name Role Phone Unavailable Primary Care Provider [...] Cervical Cancer Screening 2002 Pap Smear 2002 Imm-HPV (1 - 3-dose SCDM series) 02/12/2008 Breast Cancer Screening (Mammogram) 2021 Hypertension Screening (#1) 06/16/2023 Diabetes Screening 06/18/2023 06/17/2020 Alcohol and Drug Screen 02/16/2024 Depression Annual Screen 02/16/2024 [id number] ( season) 2024 Imm-Influenza (#1) 2024 12/01/2017, 01/05/2017 Lipid Screening 06/17/2025 06/17/2020 Imm-DTaP/Tdap/Td (3 - Td or Tdap) 01/05/2027 017, 03/02/2013 Cervical Ablation/Cold-Knife Conization Discontinued Cervical Cryotherapy Discontinued Colposcopy Discontinued Endometrial Biopsy Discontinued Excision/Leep Discontinued HPV Genotyping Discontinued Vaginal Pap Discontinued Vulvoscopy Discontinued Insurance [employer] [place] [address] [place] [address] [place] [id number]
--- OUTSIDE RECORDS SUMMARY | 2024-11-16 19:40 | XMS_ITS | Clinical Summary ---
Author Organization [facility] Address [address] [place] [address] Phone Care Team Providers Care Family Assistant Name Role Phone Nerissa Robertson MD Primary Care Provider [phone] Allergies No known active allergies Medications meloxicam (MOBIC) 7.5 mg tablet 11/26/2023 Active loratadine (CLARITIN) 10 mg tablet Take 1 tablet (10 mg total) by mouth 1 (one) time each day. 06/15/2023 Active ketoconazole (NIZORAL) 2 % cream Apply locally twice a day 09/18/2022 Active ibuprofen (ADVIL,MOTRIN) 600 mg tablet Take 1 Tablet by mouth 2 times daily as needed for Pain. 10/28/2022 Active cetirizine (ZyrTEC) 10 mg tablet Take 1 tablet (10 mg total) by mouth 1 (one) time each day. 07/16/2017 Active DULoxetine (CYMBALTA) [address] De Paz ns:Anxiety and depression,Fibro myalgia Take 1 capsule (20 mg total) by mouth 2 (two) times a day. Do not crush or chew. 60 each 06/15/2024 12/13/19 25 Active levocetirizine (Xyzal) 5 mg tabletIndication s:Seasonal allergies Take 1 tablet (5 mg total) by mouth 1 (one) time each day in the evening. 30 each 06/15/2024 06/16/19 26 Active cholecalciferol (VITAMIN D-3) 50 mcg (2,000 unit) tabletIndication s:Vitamin D deficiency Take 1 tablet (2,000 Units total) by mouth 1 (one) time each day. 90 tablet 3 06/26/2024 Active pantoprazole (PROTONIX) 40 mg EC tabletIndication s:Gastroesophage al reflux disease, unspecified whether esophagitis present Take 1 tablet (40 mg total) by mouth 2 (two) times a day. 60 tablet 1 07/17/2024 Active methocarbamoL (ROBAXIN) 500 mg tablet Take 2 tablets (1,000 mg total) by mouth 2 (two) times a day if needed for muscle spasms for up to 14 days. 28 tablet 09/24/2024 Active Active Problems Problem Noted Date Diagnosed Date H/O gastric sleeve 06/15/2024 Morbid obesity due to excess calories ([facility] V24, [facility] V28) 12/13/2015 Fibromyalgia 08/22/2014 Chronic lower back pain 08/06/2014 Common migraine 08/06/2014 Hypothyroid 08/06/2014 Positive KERWIN (antinuclear antibody) 08/06/2014 Overview (01/29/2024): 11/01/12 Encounters Date Type Department Care Team Description 09/27/2024 10:38 AM EDT - 09/27/2024 11:59 PM EDT Hospital [facility]counter [facility] [address] [address] Encounter for screening mammogram for breast cancer Discharge Disposition: Home or Self Care 09/24/2024 1:47 PM EDT - 09/24/2024 5:27 PM EDT Emergency [facility] Emergency [address] [place] [phone] Susan Mazariegos MD Left arm pain (Primary Dx); Abdominal pain, unspecified abdominal location; Chest pain, unspecified type; Abnormal menstrual cycle Discharge Disposition: Home or Self Care 09/14/2024 9:32 AM EDT - 09/14/2024 11:59 PM EDT Hospital Encounter [facility] Ultrasound [address] [place] [phone] Breast mass Discharge Disposition: Home or Self Care 09/13/2024 Telephone Internal Medicine - [address] [place] [address] Nerissa Robertson MD from Last 3 Months Immunizations Immunization Administration Dates Next Due Hep B, Unspecified 03/02/2013 Measles 03/02/2013 Mumps 03/02/2013 PPD Test 07/01/2016 Rubella 03/02/2013 Tdap Tetanus diptheria acell ular pertussis (Boostrix; Adacel) 7yo and older 03/02/2013 Surgical History Surgery Date Site/Laterality Comments OTHER SURGICAL HISTORY PROCEDURE: DENIES PREVIOUS SURGERY STEREOTACTIC CORE BIOPSY Medical History Medical History Date Comments Chronic lower back pain 08/06/2014 DX:Chron ic lower back pain Hypothyroid 08/06/2014 DX:Hypothyroid Common migraine 08/06/2014 DX:Common migrai ne Positive KERWIN (antinuclear antibody) 08/06/2014 DX:Positive KERWIN (antinuclear antibody); COMMENT: 11/01/12 Morbid obesity due to excess calories ([facility]/HCC V24, [facility]/H[facility] V28) 12/13/2015 DX:Morbid obesity due to ex cess calories ([facility]) Fibromyalgia 08/22/2014 DX:Fibromyalgia Family History Medical History [...] Industry Job Start Date Job End Date [employer] children Not on file Not on file Not on f ile Obstetrics History Para Term AB IAB SAB Ectopic Multiple Livin g Live Births 3 Last Filed Vital Signs Vital Sign Reading Time Taken Comments Blood Pressure 128/79 09/24/2024 4:58 PM EDT Pulse 66 09/24/2024 4:58 PM EDT Temperature 36.6 C (97.9 F) 09/24/2024 4:58 PM EDT Respiratory Rate 16 09/24/2024 4:58 PM EDT Oxygen Saturation 100% 09/24/2024 4:58 PM EDT Inhaled Oxygen Concentration - - Weight 101 kg (223 lb) 09/24/2024 12:56 PM EDT Height 165.1 cm (5' 5 ) 09/27/2024 11:00 AM EDT Body Mass Index 37.11 09/24/2024 12:56 PM EDT Plan of Treatment Upcoming Encounters Date Type Department Care Team (Late st Contact Info) Description 12/19/2024 11:00 AM EST Office Visit [facility] - [facility] [address] [place] [address] Nerissa Robertson MD [address] [place] [address] Health Maintenance Due Date Last Done Comments Cervical Cancer Screening: Pap Smear 2002 HPV Vaccines (1 - 3-dose SCDM series) 02/12/2008 Hepatitis B Vaccines (2 of 3 - 19+ 3-dose series) 03/30/2013 03/02/2013 Social Influencers of Health Screening 01/24/2022 Depression Screening 02/16/2024 12/10/2023 COVID-19 Vaccine (2 - season) 2024 10/13/2022 Influenza Vaccine (#1) 2024 , 12/01/2017, 11/16/2017, Additional history exists Breast Cancer Screening 09/27/2026 09/28/19 25, 09/09/2023, 09/09/2023 DTaP,Tdap,and Td Vaccines (3 - Td or Tdap) 01/05/2027 01/05/2017, 03/02/2013 Cholesterol Screening (Lipid Panel) 06/16/2029 06/16/2024, 06/17/2023, 06/17/2023 RSV Immunization Adult Patients (1 - 1-dose 75+ series) 02/12/2056 HIV Screening Completed 06/16/2024 Hepatitis C Screening [...] patient's age to complete this topic Pneumococcal Vaccine: Pediatrics (0 to 5 Years) and At-Risk Patients (6 to 49 Years) Aged Out No longer eligible based on patient's age to complete this topic RSV Immunization Patients Under 20 months Aged Out No longer eligible based on patient's age to complete this topic Varicella Vaccines Aged Out No longer eligible based on patient's age to complete this topic Procedures Procedure Name Priority Date/Time Associated Diagnosis Comments MG MAMMO DIGITAL SCREENING W CRUZ BILAT Routine 09/27/2024 11:06 AM EDT Encounter for screening mammogram for breast cancer ECG ANNOTATED 09/25/2024 TROPONIN I HIGH SENSITIVITY STAT 09/24/2024 4:10 PM EDT XR CHEST 2 VIEWS STAT 09/24/2024 2:28 PM EDT PARKER URINE CULTURE TUBE STAT 09/25/19 25 2:14 PM EDT URINALYSIS WITH REFLEX MICROSCOPIC AND CULTURE STAT 09/24/2024 2:14 PM EDT URINALYSIS WITH REFLEX MICROSCOPIC AND CULTURE STAT 09/24/2024 2:14 PM EDT TROPONIN I HIGH SENSITIVITY STAT 09/24/2024 2:12 PM EDT CBC WITH AUTO DIFFERENTIAL STAT 09/24/2024 2:12 PM EDT LIPASE STAT 09/24/2024 2:12 PM EDT COMPREHENSIVE METABOLIC PANEL STAT 09/24/2024 2:12 PM EDT CBC AND DIFFERENTIAL STAT 09/24/2024 2:12 PM EDT ECG 12-LEAD STAT 09/24/2024 2:05 PM EDT POC , URINE DIAGNOSTIC STAT 09/24/2024 2:03 PM EDT HCG, QUANTITATIVE Routine 09/18/2024 9:2 9 AM EDT Irregular menstrual cycle CHLAMYDIA TRACHOMATIS AND NEISSERIA GONORRHOEAE PCR Routine 09/18/2024 9:29 AM EDT Screen for STD (sexually transmitted disease) US BREAST LIMITED RIGHT Routine 09/15/19 10:00 AM EDT Breast mass HEPATITIS C ANTIBODY Routine 06/16/2024 10:00 AM EDT Screen for STD (sexually transmitted disease) HIV 1, 2 ANTIBODY, P24 ANTIGEN WITH REFLEX TO DIFFERENTIATION Routine 06/16/2024 10:00 AM EDT Screen for STD (sexually transmitted disease) LIPID PANEL WITH REFLEX TO DIRECT LDL Routine 06/16/2024 10:00 AM EDT Routine adult health maintenance HM DEPRESSION SCREENING Routine 12/10/2023 from Last 3 Months or Most Recently Relevant to Health Maintenance Results * MG Mammo Digital Screening w Cruz bilat (09/27/2024 11:06 AM EDT) Anatomical Region Laterality Modality Breast Bilateral Mammography 09/27/2024 1:25 PM EDT Impressions 09/27/2024 1:37 PM EDT No mammographic evidence of malignancy. No suspicious interval change. A negative mammogram in the presence of a clinically suspicious palpable abnormality does not preclude the possibility of malignancy or alter the indications for biopsy. ASSESSMENT: BI-RADS 2: BENIGN RECOMMENDATION(S): 1: Routine screening mammogram BILATERAL in 1 year. [facility]amm[facility] location[facility] at [address], [address] -------- FINAL REPORT -------- Dictated By: Benji Reynaga Dictated Date: 09/27/2024 13:25 ET Assigned Physician: Benji Reynaga Reviewed and Electronically Signed By: Benji Reynaga Signed Date: 09/27/2024 13:37 ET Workstation ID: [id number] Transcribed By: Self Edit Transcribed Date: 09/27/2024 13:25 ET Narrative 09/27/2024 1:37 PM EDT EXAM: SCREENING MAMMOGRAPHY, BILATERAL HISTORY: SCREENING. No additional history. COMPARISON: 09/09/23 TECHNIQUE: Synthesized CC and MLO projections of each breast. Tomosynthesis of each breast in the CC and MLO projections. ADDITIONAL IMAGING: None Computer-aided detection was employed with the [employer] AI 3-D. TISSUE DENSITY: There are scattered areas of fibroglandular density. (BI-RADS category B) FINDINGS: RIGHT BREAST: No suspicious change in a circumscribed oval 2.0 cm equal density mass in the 10 o'clock position 8 cm from the right nipple. This is consistent with biopsy proven fibroadenoma. No suspicious change in the region of a ribbon-shaped biopsy site marker in the upper outer right breast. No suspicious change in circumscribed equal density 0.6 cm oval mass in the 10 o'clock position 5 cm from the right nipple. No new suspicious right breast finding. LEFT BREAST: No suspicious mass. No suspicious calcification. No distortion. No additional suspicious left breast findings Procedure Note Benji Reynaga MD - 09/27/2024 EXAM: SCREENING MAMMOGRAPHY, BILATERAL HISTORY: SCREENING. No additional history. COMPARISON: 09/09/23 TECHNIQUE: Synthesized CC and MLO projections of each breast.Tomosynthesis of each breast in the CC and MLO projections. ADDITIONAL IMAGING: None Computer-aided detection was employed with the [employer] AI 3-D. TISSUE DENSITY: There are scattered areas of fibroglandular density.(BI-RADS category B) FINDINGS: RIGHT BREAST: No suspicious change in a circumscribed oval 2.0 cm equal density mass inthe 10 o'clock position 8 cm from the right nipple. This is consistentwith biopsy proven fibroadenoma. No suspicious change in the region of a ribbon-shaped biopsy site markerin the upper outer right breast. No suspicious change in circumscribed equal density 0.6 cm oval mass inthe 10 o'clock position 5 cm from the right nipple. No new suspicious right breast finding. LEFT BREAST: No suspicious mass. No suspicious calcification. No distortion. Noadditional suspicious left breast findings IMPRESSION: No mammographic evidence of malignancy. No suspicious interval change. A negative mammogram in the presence of a clinically suspicious palpableabnormality does not preclude the possibility of malignancy or alter theindications for biopsy. ASSESSMENT: BI-RADS 2: BENIGN RECOMMENDATION(S): 1: Routine screening mammogram BILATERAL in 1 year. [facility]amm[facility] location[facility] at [address], [address] -------- FINAL REPORT -------- Dictated By: Benji Reynaga Dictated Date: 09/27/2024 13:25 ET Assigned Physician: Benji Reynaga Reviewed and Electronically Signed By: Benji Reynaga Signed Date: 09/27/2024 13:37 ET Workstation ID: [id number] Transcribed By: Self Edit Transcribed Date: 09/27/2024 13:25 ET us Self Referral Sppl IMG BI PROCEDURES Final Resul t * ECG-Annotated (09/25/2024) us Provider Onbase MD ECG ORDERABLES Final Result * Troponin I High Sensitivity (09/24/2024 4:10 PM EDT) Only the most recent of2 resultswithin the time period is included. High Sensitivity Troponin I 5 <=54 ng/L LAB CHEMISTRY METHOD 09/24/2024 4:52 PM EDT [facility] ([facility]) [facility] Blood Venous blood specimen / Unknown Venipuncture / Unknown 09/24/2024 4:10 PM EDT 09/24/2024 4:15 PM EDT [facility]ative [facility] ([facility] - 09/24/2024 4:52 PM EDT High levels of biotin in samples may falsely decrease hsTroponin values. Use caution when interpreting hsTroponin results in patients taking biotin who exhibit renal impairment (eGFR <60) or in patients taking more than 20 mg/day of biotin. us Susan Mazariegos MD LAB BLOOD ORDERABLES Final Resul t [facility] [address] [place] [address], [place] [phone] * XR Chest 2 Views (09/24/2024 2:28 PM EDT) Anatomical Region Laterality Modality Body Radiographic Deborah ging 09/24/2024 2:34 PM EDT Impressions 09/24/2024 2:35 PM EDT Normal chest radiographs. -------- FINAL REPORT -------- Dictated By: Heath Fernández Dictated Date: 09/24/2024 14:34 ET Assigned Physician: Heath Fernández Reviewed and Electronically Signed By: Heath Fernández Signed Date: 09/24/2024 14:35 ET Workstation ID: [id number] Transcribed By: Self Edit Transcribed Date: 09/24/2024 14:34 ET Narrative 09/24/2024 2:35 PM EDT PROCEDURE: PA and lateral radiographs of the chest. HISTORY: pain. COMPARISON: 04/26/2023. FINDINGS: The heart, mediastinum, lungs, pleural spaces, and bony thorax are normal. Multiple surgical clips project over the left upper quadrant of the abdomen. Procedure Note Heath Fernández MD - 09/24/2024 PROCEDURE: PA and lateral radiographs of the chest. HISTORY: pain. COMPARISON: 04/26/2023. FINDINGS: The heart, mediastinum, lungs, pleural spaces, and bony thorax are normal.Multiple surgical clips project over the left upper quadrant of theabdomen. IMPRESSION: Normal chest radiographs. -------- FINAL REPORT -------- Dictated By: Heath Fernández Dictated Date: 09/24/2024 14:34 ET Assigned Physician: Heath Fernández Reviewed and Electronically Signed By: Heath Fernández Signed Date: 09/24/2024 14:35 ET Workstation ID: [id number] Transcribed By: Self Edit Transcribed Date: 09/24/2024 14:34 ET Susan Mazariegos MD IMG XR PROCEDURES Final Result * (ABNORMAL) Urinalysis with reflex microscopic and culture (09/24/2024 2:14 PM EDT) Specific [place] Urine 1.025 1.003 - 1.030 LAB URINALYSIS - AUTOMATED METHOD 09/24/2024 2:50 PM EDT [facility] pH, Urine 6.5 5.0 - 8.0 pH LAB URINALYSIS - AUTOMATED METHOD 09/24/2024 2:50 PM EDT [facility] Leukocytes, Urine Negative Negative LAB URINALYSIS - AUTOMATED METHOD 09/24/2024 2:50 PM [facility] Nitrite, Urine Negative Negative LAB URINALYSIS - AUTOMATED METHOD 09/24/2024 2:50 PM EDT [facility] Protein, Urine Negative <=Trace mg/dL LAB URINALYSIS - AUTOMATED METHOD 09/24/2024 2:50 PM EDT [facility] Glucose, Urine Negative Negative mg/dL LAB URINALYSIS - AUTOMATED METHOD 09/24/2024 2:50 PM [facility] Ketones, Urine Trace(A) Negative mg/dL LAB URINALYSIS - AUTOMATED METHOD [facility]2024 [facility] Urobilinogen, Urine 1.0 0.2 - 1.0 mg/dL LAB URINALYSIS - AUTOMATED METHOD 09/24/2024 2:50 PM [facility] Bilirubin, Urine Negative Negative LAB URINALYSIS - AUTOMATED METHOD 09/24/2024 2:50 PM EDT [facility] Blood, Urine Negative Negative LAB URINALYSIS - AUTOMATED METHOD 09/24/2024 2:50 PM EDT [facility] Urine Urine specimen obtained by clean catch procedure / Unknown Non-blood Collection / Unknown 09/24/2024 2:14 PM EDT 09/24/2024 2:33 PM EDT us Susan Mazariegos MD LAB URINE ORDERABLES Final Resul t Performing Organization Address [facility]/ZIP Co de Phone Number [facility] [address] [place] [address], [place] [phone] * Parker urine culture tube (09/24/2024 2:14 PM EDT) Extra Tube Hold for add-ons. 09/24/2024 4:01 PM EDT [facility] Comment:Auto resulted. Urine Urine specimen obtained by clean catch procedure / Unknown Non-blood Collection / Unknown 09/24/2024 2:14 PM EDT 09/24/2024 2:34 PM EDT us Susan Mazariegos MD LAB URINE ORDERABLES Final Resul t Performing Organization Address [facility] de Phone Number [facility] [address] [place] [address], [place] [phone] * (ABNORMAL) CBC auto differential (09/24/2024 2:12 PM EDT) WBC 6.6 4.8 - 10.8 K/mcL LAB HEMETOLOGY METHOD 09/24/2024 2:39 PM EDT [facility] RBC 4.60 3.80 - 4.80 M/mcL LAB HEMETOLOGY METHOD 09/24/2024 2:39 PM EDT [facility] Hemoglobin 12.0 11.5 - 16.0 g/dL LAB HEMETOLOGY METHOD 09/24/2024 2:39 PM EDT [facility] Hematocrit 37.3 35.0 - 47.0 % LAB HEMETOLOGY METHOD 09/24/2024 2:[facility] MCV 80.9 79.0 - 98.0 FL LAB HEMETOLOGY METHOD 09/24/2024 2:39 PM [facility] MCH 26.0(L) 27.0 - 32.0 pcg LAB HEMETOLOGY METHOD 09/24/2024 2:39 [facility] MCHC 32.2 32.0 - 37.0 g/dL LAB HEMETOLOGY METHOD 09/24/2024 2:39 PM [facility] RDW 14.3 11.0 - 15.0 % LAB HEMETOLOGY METHOD 09/24/2024 2:39 PM [facility] Platelets 228 130 - 400 K/mcL LAB HEMETOLOGY METHOD 09/24/2024 2:39 PM [facility] MPV 9.3 7.0 - 11.0 FL LAB HEMETOLOGY METHOD 09/24/2024 2:39 PM [facility] NRBC 0.0 <1.0 % LAB HEMETOLOGY METHOD 09/24/2024 2:39 PM [facility] NRBC Absolute 0.00 <0.10 K/mcL LAB HEMETOLOGY METHOD 09/24/2024 2:39 PM [facility] Neutrophils Relative 60.5 % LAB HEMETOLOGY METHOD 09/24/2024 2:39 [facility] Lymphocytes Relative 30.6 % LAB HEMETOLOGY METHOD 09/24/2024 2:39 PM [facility] Monocytes Relative 6.9 % LAB HEMETOLOGY METHOD 09/24/2024 2:39 PM [facility] Eosinophils Relative 1.4 % LAB HEMETOLOGY METHOD 09/24/2024 2:39 PM EDT [facility] Basophils Relative 0.3 % LAB HEMETOLOGY METHOD 09/24/2024 2:39 PM EDT [facility] Immature Granulocytes Relative 0.3 % LAB HEMETOLOGY METHOD 09/24/2024 2:39 PM EDT [facility] Neutrophils Absolute 4.01 1.50 - 7.00 K/mcL LAB HEMETOLOGY METHOD 09/24/2024 2:39 PM EDT [facility] Lymphocytes Absolute 2.03 1.00 - 5.00 K/mcL LAB HEMETOLOGY METHOD 09/24/2024 2:39 PM EDT [facility] Monocytes Absolute 0.46 0.20 - 1.00 K/mcL LAB HEMETOLOGY METHOD 09/24/2024 2:39 PM EDT [facility] Eosinophils Absolute 0.09 0.00 - 0.50 K/mcL LAB HEMETOLOGY METHOD 09/24/2024 2:39 PM EDT [facility] Basophils Absolute 0.02 0.00 - 0.20 K/mcL LAB HEMETOLOGY METHOD 09/24/2024 2:39 PM EDT [facility] Immature Granulocytes Absolute 0.02 0.00 - 0.03 K/mcL LAB HEMETOLOGY METHOD 09/24/2024 2:39 PM EDT [facility] Blood Venous blood specimen / Unknown Venipuncture / Unknown 09/24/2024 2:12 PM EDT 09/24/2024 2:34 PM EDT us Susan Mazariegos MD LAB BLOOD ORDERABLES Final Resul t [facility] [address] [place] [address], * Lipase (09/24/2024 2:12 PM EDT) Lipase 28 13 - 75 unit/L LAB CHEMISTRY METHOD 09/24/2024 3:08 PM EDT [facility] Blood Venous blood specimen / Unknown Venipuncture / Unknown 09/24/2024 2:12 PM EDT 09/24/2024 2:34 PM EDT Susan Mazariegos MD LAB BLOOD ORDERABLES Final Resul t [facility] [address] [place] [address], [place] [phone] * Comprehensive metabolic panel (09/24/2024 2:12 PM EDT) Pathologist [facility] Sodium 139 133 - 145 mmol/L LAB CHEMISTRY METHOD 09/24/2024 3:29 PM [facility] Potassium 4.4 3.5 - 5.5 mmol/L LAB CHEMISTRY METHOD 09/24/2024 3:29 PM [facility] Chloride 105 96 - 110 mmol/L LAB CHEMISTRY METHOD 09/24/2024 3:29 PM [facility] CO2 31 21 - 32 mmol/L LAB CHEMISTRY METHOD 09/24/2024 3:29 PM [facility] Anion Gap 3 3 - 11 LAB CHEMISTRY METHOD 09/24/2024 3:29 PM [facility] Glucose 87 70 - 100 mg/dL LAB CHEMISTRY METHOD 09/24/2024 3:29 PM [facility] BUN 19 5 - 25 mg/dL LAB CHEMISTRY METHOD 09/24/2024 3:29 PM [facility] Creatinine 1.03 0.50 - 1.10 mg/dL LAB CHEMISTRY METHOD 09/24/2024 3:29 PM [facility] eGFR 69 >=60 mL/min/1. 73m2 LAB CHEMISTRY METHOD 09/24/2024 3:29 PM EDT [facility] Comment:Calculation based on the Chronic Kidney Disease Epidemiology Collaboration (CKD-EPI) equation refit without adjustment for race. BUN/Creatinine Ratio 18.4 LAB CHEMISTRY METHOD 09/24/2024 3:29 PM EDT [facility] Calcium 9.1 8.5 - 10.5 mg/dL LAB CHEMISTRY METHOD 09/24/2024 3:29 PM [facility] AST (SGOT) 15 10 - 42 unit/L LAB CHEMISTRY METHOD 09/24/2024 3:29 PM [facility] ALT (SGPT) 20 10 - 60 unit/L LAB CHEMISTRY METHOD 09/24/2024 3:29 PM [facility] Alkaline Phosphatase 95 42 - 121 unit/L LAB CHEMISTRY METHOD 09/24/2024 3:29 PM [facility] Total Protein 6.7 6.0 - 8.0 g/dL LAB CHEMISTRY METHOD 09/24/2024 3:29 PM [facility] Albumin 3.7 3.2 - 5.0 g/dL LAB CHEMISTRY METHOD 09/24/2024 3:29 PM [facility] Total Bilirubin 0.2 0.0 - 1.4 mg/dL LAB CHEMISTRY METHOD 09/24/2024 3:29 PM [facility] Blood Venous blood specimen / Unknown Venipuncture / Unknown 09/24/2024 2:12 PM EDT 09/24/2024 2:34 PM EDT us Susan Mazariegos MD LAB BLOOD ORDERABLES Final Resul t [facility] [address] [place] [address], * 12-Lead ECG (09/24/2024 2:05 PM EDT) Ventricular Rate ECG 71 BPM GEMUSE Atrial Rate 71 BPM GEMUSE P-R Interval 136 ms GEMUSE QRS Duration 74 ms GEMUSE Q-T Interval 386 ms GEMUSE QTc 419 ms GEMUSE P Wave [place] 33 degrees GEMUSE R [place] 43 degrees GEMUSE T [place] 25 degrees GEMUSE ECG Interpretation Normal sinus rhythm When compared with ECG of 26-APR-2023 09:57, Vent. rate has decreased BY 40 BPM Confirmed by SAMANTHA TOLBERT ([id number]) on 09/25/2024 12:53:36 AM GEMUSE 09/24/2024 2:05 PM EDT 09/25/2024 12:53 AM EDT Susan Mazariegos MD ECG ORDERABLES Final Result GEMUSE * POC , urine manually resulted (09/24/2024 2:03 PM EDT) HCG, Ur POC Negative Negative POC hCG Int QC Pass? Yes Yes Urine Urine specimen obtained by clean catch procedure / Unknown 09/24/2024 2:03 PM EDT Susan Mazariegos MD POINT OF CARE TEST ENTER/EDIT OR DERABLES Final Result * Chlamydia trachomatis and Neisseria gonorrhoeae molecular study (09/18/2024 9:29 AM EDT) Neisseria gonorrhoeae PCR Negative Negative LAB MOLECULAR DIAGNOSTICS METHOD 09/21/2024 2:33 PM EDT [facility] Chlamydia trachomatis PCR Negative Negative LAB MOLECULAR DIAGNOSTICS METHOD 09/21/2024 2:33 PM EDT [facility] Urine Urine specimen from urethra / Unknown 09/18/2024 9:29 AM EDT 09/18/2024 9:29 AM EDT Carlos Austin NP LAB MICROBIOLOGY - GENERAL ORDER AGNES Final Result [facility] [address] [place] [address], [place] [phone] * HCG, quantitative (09/18/2024 9:29 AM EDT) hCG Quant <1 mIU/mL LAB CHEMISTRY METHOD 09/18/2024 3:17 PM EDT [facility] Blood Venous blood specimen / Unknown Venipuncture / Unknown 09/18/2024 9:29 AM EDT 09/18/2024 9:29 AM EDT Narrative [facility] - 09/18/2024 3:17 PM EDT Quantitative HCG Reference Ranges Time after Conception MIU/ML 0.2-1 Week 5-50 1-2 Weeks 50-500 2-3 Weeks 100-5,000 3-4 Weeks 500-10,000 4-5 Weeks 1,000-50,000 5-6 Weeks 10,000-100,000 6-8 Weeks 15,000-200,000 2-3 Months 10,000-100,000 2nd Trimester 1,000-94,000 3rd Trimester 2,500-90,000 Non- Females 1-3 us Nerissa Robertson MD LAB BLOOD ORDERABLES Final Res ult [facility] [address] [place] [address], * US Breast Limited Right (09/14/2024 10:00 AM EDT) Anatomical Region Laterality Modality Breast Right Ultrasound 09/14/2024 9:56 AM EDT Impressions 09/14/2024 10:00 AM EDT No suspicious change in a circumscribed oval right breast mass. This area can be monitored at the time of annual screening. The patient is due for mammography. The patient was transported to the mammography suite to make an appointment for screening mammography. ASSESSMENT: BI-RADS 2: BENIGN RECOMMENDATION(S): 1: Routine screening mammogram BILATERAL [facility] [address], [address] -------- FINAL REPORT -------- Dictated By: Benji Reynaga Dictated Date: 09/14/2024 09:56 ET Assigned Physician: Benji Reynaga Reviewed and Electronically Signed By: Benji Reynaga Signed Date: 09/14/2024 10:00 ET Workstation ID: [id number] Transcribed By: Self Edit Transcribed Date: 09/14/2024 09:56 ET Narrative 09/14/2024 10:00 AM EDT EXAM: BREAST ULTRASOUND, RIGHT HISTORY: Probably benign right breast mass. Evaluate for interval change TECHNIQUE: RIGHT BREAST. High-frequency linear transducer grayscale examination. Color mapping was performed. Examination targeted to the area of concern. COMPARISON: Portions of previous 03/16/24, 09/14/23 FINDINGS: RIGHT BREAST 10 o'clock position, 6 cm from right nipple There is a circumscribed homogeneous hypoechoic oval mass with long axis parallel. There is posterior enhancement. There is no color signal. 09/14/24-0.6 cm 03/16/2024-0.6 cm 09/14/2023-0.7 cm There has been no suspicious interval change No new suspicious abnormality. Procedure Note Benji Reynaga MD - 09/14/2024 EXAM: BREAST ULTRASOUND, RIGHT HISTORY: Probably benign right breast mass. Evaluate for intervalchange TECHNIQUE: RIGHT BREAST. High-frequency linear transducer grayscale examination. Color mapping wasperformed. Examination targeted to the area of concern. COMPARISON: Portions of previous 03/16/24, 09/14/23 FINDINGS: RIGHT BREAST 10 o'clock position, 6 cm from right nipple There is a circumscribed homogeneous hypoechoic oval mass with long axisparallel. There is posterior enhancement. There is no color signal. 09/14/24-0.6 cm 03/16/2024-0.6 cm 09/14/2023-0.7 cm There has been no suspicious interval change No new suspicious abnormality. IMPRESSION: No suspicious change in a circumscribed oval right breast mass. This area can be monitored at the time of annual screening. The patient is due for mammography. The patient was transported to themammography suite to make an appointment for screening mammography. ASSESSMENT: BI-RADS 2: BENIGN RECOMMENDATION(S): 1: Routine screening mammogram BILATERAL [facility] location: [facility] [address] [place], [address] -------- FINAL REPORT -------- Dictated By: Benji Reynaga Dictated Date: 09/14/2024 09:56 ET Assigned Physician: Benji Reynaga Reviewed and Electronically Signed By: Benji Reynaga Signed Date: 09/14/2024 10:00 ET Workstation ID: [id number] Transcribed By: Self Edit Transcribed Date: 09/14/2024 09:56 ET us Nerissa Robertson MD IM US PROCEDURES Final Result * Hepatitis C antibody (06/16/2024 10:00 AM EDT) Hepatitis C Antibody Negative Negative LAB CHEMISTRY METHOD 06/16/2024 3:00 PM EDT [facility] Blood Venous blood specimen / Unknown Venipuncture / Unknown 06/16/2024 10:00 AM EDT 06/16/2024 10:24 AM EDT us Carlos Austin NP LAB BLOOD ORDERABLES Final Resul t [facility] [address] [place] [address], [place] [phone] * HIV 1,2 antibody, p24 antigen with reflex to differentiation (06/16/2024 10:00 AM EDT) HIV Combo AB/AG Negative Negative LAB CHEMISTRY METHOD 06/16/2024 3:00 PM EDT [facility] Blood Venous blood specimen / Unknown Venipuncture / Unknown 06/16/2024 10:00 AM EDT 06/16/2024 10:24 AM EDT Narrative [facility] - 06/16/2024 3:00 PM EDT This assay is a 4th generation assay allowing for earlier detection of HIV infection by detecting the presence of the HIV-1 p24 antigen as well as the traditional antibodies to HIV type 1 (including group O) and type 2. Use of a 4th generation assay is the current CDC recommendation for HIV screening. Carlos Austin NP LAB BLOOD ORDERABLES Final Resul t [facility] [address] [place] [address], [place] [phone] * Lipid panel with reflex to direct LDL (06/16/2024 10:00 AM EDT) Cholesterol 175 0 - 200 mg/dL LAB CHEMISTRY METHOD 06/16/2024 1:23 PM EDT [facility] Triglycerides 88 0 - 150 mg/dL LAB CHEMISTRY METHOD 06/16/2024 1:23 PM EDT [facility] HDL 58 >=40 mg/dL LAB CHEMISTRY METHOD 06/16/2024 1:23 PM EDT [facility] LDL Calculated 99 0 - 100 mg/dL LAB CHEMISTRY METHOD 06/16/2024 1:23 PM [facility] VLDL Cholesterol Nestor 17.6 mg/dL LAB CHEMISTRY METHOD 06/16/2024 1:23 PM T [facility] Non HDL Chol. (LDL+VLDL) 117 <145 mg/dL LAB CHEMISTRY METHOD 06/16/2024 1:23 PM EDT [facility] Chol/HDL Ratio 3.0 0.0 - 4.4 LAB CHEMISTRY METHOD 06/16/2024 1:23 PM [facility] Blood Venous blood specimen / Unknown Venipuncture / Unknown 06/16/2024 10:00 AM EDT 06/16/2024 10:24 AM EDT Carlos Austin ACCOUNT REVIEW SPECIALIST LAB BLOOD ORDERABLES Final Resul t [facility] ([facility]) [facility] [address] [place] [address], * Depression Screening (12/10/2023) [facility] Signature Depression Screening abstracted Historical Provider MD HEALTH MAINTENANCE Final Result from Last 3 Months or Most Recently Relevant to Health Maintenance Insurance [facility] Care Teams Family Assistant Relationship Specialty Start Date End Date Nerissa Robertson MD [address] [id number] PCP - General Internal Medicine 03/14/24
--- OUTSIDE RECORDS SUMMARY | 2024-11-16 19:40 | XMS_ITS | Encounter Summary ---
Author Organization [facility] Address [address] [place] [address] Care Team Providers Care Fish Hatchery Inspector Name Role Phone JamelCookie swenson Primary Care Provider [phone] Encounter Details Date Type Department Care Team (Late st Contact Info) Description 09/03/2017 Orders Only [facility] Rheumatology [address] [place] [id number] Cait Walters MD Social History Tobacco Use Types Packs/Day Years [...] encounter Procedures * Due to [place] state law, this organization might not be sharing negative HIV tests. Procedure Name Priority Date/Time Associated Diagnosis Comments KERWIN IFA, W/ REFLEX TO TITER/PATTERN/COMPREHE NSIVE AB PANEL Routine 09/03/2017 1:39 PM EDT Arthralgia, unspecified joint RHEUMATOID ARTHRITIS DIAGNOSTIC PANEL Routine 09/03/2017 1:39 PM EDT Arthralgia, unspecified joint CHROMATIN (NUCLEOSOMAL) ANTIBODY Routine 09/03/2017 1:39 PM EDT SM/DROSS SKIMMER ANTIBODY Routine 09/03/2017 1:39 PM EDT Arthralgia, unspecified joint DROSS SKIMMER ANTIBODY Routine 09/03/2017 1:39 PM EDT SM [...] encounter Results * Due to [place] state law, this organization might not be sharing negative HIV tests. * SM ANTIBODY (09/03/2017 1:39 PM EDT) Pathologist Rudy Santana extractable nuclear Ab <1.0 NEG <1.0 NEG [facility] 09/03/2017 1:39 PM EDT 09/03/2017 10:38 PM EDT us Cait Walters MD LABORATORY Final Result Performing Organization Address [facility] Co de Phone Number [facility] [address] [place] [address] * CHROMATIN (NUCLEOSOMAL) ANTIBODY (09/03/2017 1:39 PM EDT) Nucleosome Ab <1.0 NEG <1.0 NEG [facility] 09/03/2017 1:39 PM EDT 09/03/2017 10:38 PM EDT us Cait Walters MD LABORATORY Final Result Performing Organization Address [facility] Phone Number [facility] [address] [place] [address] * DROSS SKIMMER ANTIBODY (09/03/2017 1:39 PM EDT) Ribonucleoprotein extractable nuclear Ab <1.0 NEG <1.0 NEG [facility] 09/03/2017 1:39 PM EDT 09/03/2017 10:38 PM EDT us Cait Walters MD LABORATORY Final Result Performing Organization Address [facility] Phone Number [facility] [address] [place] [address] * CENTROMERE B ANTIBODY (09/03/2017 1:39 PM EDT) Centromere protein B Ab <1.0 NEG <1.0 NEG [facility] 09/03/2017 1:39 PM EDT 09/03/2017 10:38 PM EDT us Cait Walters MD LABORATORY Final Result Performing Organization Address [facility] Co de Phone Number [facility] [address] [place] [address] * NIYA-1 ANTIBODY (09/03/2017 1:39 PM EDT) Niya-1 extractable nuclear Ab <1.0 NEG <1.0 NEG [facility] 09/03/2017 1:39 PM EDT 09/03/2017 10:38 PM EDT us Cait Walters MD LABORATORY Final Result Performing Organization Address [facility] de Phone Number [facility] [address] [place] [address] * SCLERODERMA 70 ANTIBODY (SCL-70) (09/03/2017 1:39 PM EDT) SCL-70 extractable nuclear Ab <1.0 NEG <1.0 NEG AI [facility] 09/03/2017 1:39 PM EDT 09/03/2017 10:38 PM EDT us Cait Walters MD LABORATORY Final Result Performing Organization Address [facility] Phone Number [facility] [address] [place] [phone] * RIBOSOMAL P ANTIBODY (09/03/2017 1:39 PM EDT) Ribosomal P Ab <1.0 NEG <1.0 NEG AI [facility] 09/03/2017 1:39 PM EDT 09/03/2017 10:38 PM EDT us Cait Walters MD LABORATORY Final Result Performing Organization Address [facility] Phone Number [facility] [address] [place] [address] * TSH, 3RD GENERATION (09/03/2017 1:39 PM EDT) TSH 1.39 mIU/L [facility] Comment: Reference Range > or = 20 Years 0.40-4.50 Ranges First trimester 0.26-2.66 Second trimester 0.55-2.73 Third trimester 0.43-2.91 09/03/2017 1:39 PM EDT 09/03/2017 10:38 PM EDT Narrative Resulting Agency Comment [id number] us Cait Walters MD LABORATORY Final Result Performing Organization Address [facility] Co de Phone Number [facility] [address] [place] [address] * SJOGRENS SYNDROME ANTIBODIES (SSA AND SSB) (09/03/2017 1:39 PM EDT) Sjogrens syndrome-A extractable nuclear Ab <1.0 NEG <1.0 NEG AI [facility] Sjogrens syndrome-B extractable nuclear Ab <1.0 NEG <1.0 NEG AI [facility] 09/03/2017 1:39 PM EDT 09/03/2017 10:38 PM EDT Narrative Resulting Agency Comment [id number] us Cait Walters MD LABORATORY Final Result Performing Organization Address [facility] Co de Phone Number [facility] [address] [place] [address] * ERYTHROCYTE SEDIMENTATION RATE (ESR), WESTERGREN (09/03/2017 1:39 PM EDT) Sedimentation Rate [place]ren (ESR) 9 < OR = 20 mm/h [facility] 09/03/2017 1:39 PM EDT 09/03/2017 10:38 PM EDT Narrative Resulting Agency Comment [id number] us Cait Walters MD LAB SAME DAY RESULT Final Result Performing Organization Address [facility] de Phone Number [facility] [address] [place] [phone] * RHEUMATOID ARTHRITIS DIAGNOSTIC PANEL (09/03/2017 1:39 PM EDT) Rheumatoid Factor (Quant) <14 <14 IU/mL [facility] CCP Ab, IgG <16 UNITS [facility] Comment: Reference Range Negative: <20 Weak Positive: 20-39 Moderate Positive: 40-59 Strong Positive: >59 INTERPRETATION SEE NOTE [facility] Comment: These serologic results may be found in 10-20% of patients with polyarthritis that is clinically and radiologically indistinguishable from RA. 09/03/2017 1:39 PM EDT 09/03/2017 10:38 PM EDT Narrative Resulting Agency Comment [id number] us Cait Walters MD LABORATORY Final Result [facility] [address] [place] [address] * C-REACTIVE PROTEIN (CRP) - INFLAMMATION (09/03/2017 1:39 PM EDT) C reactive protein 7.0 <8.0 mg/L [facility] 09/03/2017 1:39 PM EDT 09/03/2017 10:38 PM EDT Narrative Resulting Agency Comment [id number] Cait Walters MD LABORATORY Final Result Performing Organization Address City/[facility] Co de Phone Number [facility] [address] [place] [address] * (ABNORMAL) COMPREHENSIVE METABOLIC PANEL WITH GFR (09/03/2017 1:39 PM EDT) Glucose 132(H) 65 - 99 mg/dL [facility] Comment: Fasting reference interval For someone without known [...] needs for GFR calculation. Resulting Agency Comment [id number] Cait Walters MD LABORATORY Final Result [facility] [address] [place] [address] * CBC INCLUDES DIFFERENTIAL AND PLATELET COUNT [...] 10:38 PM EDT Narrative Resulting Agency Comment [id number] us Cait Walters MD LAB SAME DAY RESULT Final Result Performing Organization Address [facility] Co de Phone Number [facility] [address] [place] [address] * SM/DROSS SKIMMER ANTIBODY (09/03/2017 1:39 PM EDT) Santana extractable nuclear Ab+Ribonucleopr otein extractable nuclear Ab <1.0 NEG <1.0 NEG AI [facility] 09/03/2017 1:39 PM EDT 09/03/2017 10:38 PM EDT Narrative Resulting Agency Comment [id number] us Cait Walters MD LABORATORY Final Result Performing Organization Address [facility] Co de Phone Number [facility] [address] [place] [address] * DNA (DS) ANTIBODY (09/03/2017 1:39 PM EDT) Pathologist [facility] Dna (DS) Antibody <1 IU/mL [facility] Comment: IU/mL Interpretation < or = 4 Negative 5-9 Indeterminate > or = 10 Positive 09/03/2017 1:39 PM EDT 09/03/2017 10:38 PM EDT Narrative Resulting Agency Comment [id number] us Cait Walters MD LABORATORY Final Result Performing Organization Address [facility] Co de Phone Number [facility] [address] [place] [address] * (ABNORMAL) KERWIN IFA, W/ REFLEX TO [...] for interpretation of all antibodies in the [place], prevalence, and association with diseases at http://education.[employer]OMIC (formerly [employer])/ faq/DSH343 KERWIN Pattern SPECKLED( A) [facility] Comment: CELL CYCLE DEPENDENT, NOT PCNA. Speckled pattern is associated with mixed connective tissue disease (MCTD), systemic lupus erythematosus (SLE), Sjogren's syndrome, dermatomyositis, and systemic sclerosis/polymyositis overlap. Anti-Nuclear Ab Titer 1:80(H) titer [facility] Comment: A low level KERWIN titer may be present in pre-clinical autoimmune diseases and normal individuals. Reference Range <1:40 Negative 1:40-1:80 Low Antibody Level >1:80 Elevated Antibody Level 09/03/2017 1:39 PM EDT 09/03/2017 10:38 PM EDT Narrative Resulting Agency Comment [id number] Cait Walters MD LABORATORY Final Result [facility] [address] [place] [address] documented in this encounter Visit Diagnoses Diagnosis Arthralgia, unspecified joint documented in this encounter Care Teams Fish Hatchery Inspector Relationship Specialty Start Date End Date Cookie Mccullough DO [address] [place] [id number] PCP - General Family Medicine 07/22/17 documented as of this encounter
--- OUTSIDE RECORDS SUMMARY | 2024-11-16 19:40 | XMS_ITS | Encounter Summary ---
Author Organization [facility] Address [address] [place] [address] Care Team Providers Care Chronometer Tester Name Role Phone Cookie Mccullough Primary Care Provider [phone] Encounter Details Date Type Department Care Team (Late st Contact Info) Description 01/04/[address] [facility] Rheumatology [address] [place] [phone] Cait Walters MD Social History Tobacco Use [...] of this encounter Procedures * Due to [facility] law, this organization might not be sharing negative HIV tests. Procedure Name Priority Date/Time Associated Diagnosis Comments THYROID STIMULATING HORMONE (TSH) WITH FREE T4 REFLEX, SERUM Routine 01/04/2018 11:59 AM EST Hair loss documented in this encounter Results * Due to [place] [employer] law, this organization might not be sharing negative HIV tests. * THYROID STIMULATING HORMONE (TSH) WITH FREE T4 REFLEX, SERUM (01/04/2018 11:59 AM EST) TSH 1.48 mIU/L [facility] Comment: Reference Range > or = 20 Years 0.40-4.50 Ranges First trimester 0.26-2.66 Second trimester 0.55-2.73 Third trimester 0.43-2.91 01/04/2018 11:5 9 AM EST 01/04/2018 6:18 PM EST Narrative Resulting Agency Comment [id number] Cait Walters MD LABORATORY Final Result [facility] [address] [place] [address] documented in this encounter Visit Diagnoses Diagnosis Hair loss Alopecia, unspecified documented in this encounter Care Teams Chronometer Tester Relationship Specialty Start Date End Date Cookie Mccullough DO [address] [place] [address] PCP - General Family Medicine 07/22/17 documented as of this encounter
--- OUTSIDE RECORDS SUMMARY | 2024-11-16 19:40 | XMS_ITS | Clinical Summary ---
Author Organization [facility] Address [address] [place] [address] Care Team Providers Care Manager Gallery Name Role Phone JamelCookie Primary Care Provider [phone] Medications Omeprazole 20 MG CAPSULE DELAYED RELEASE [...] COVID-19 Vaccine ( - 2023-2 5 season) 2024 Influenza (#1) 2024 Zoster (Shingrix) (1 of 2) 2031 HPV Vaccine (No Doses Required) Completed Hep A Aged Out No longer eligi [...] complete this topic Insurance MEDICAID Care Teams Manager Gallery Relationship Specialty Start Date End Date Cookie Mccullough DO [address] [place] [address] PCP - General Family Medicine 07/22/17
[2024-11-16 19:49] VITALS: BP 135/78; PULSE 70; RESP 18; TEMP 36.3; O2SAT 100
[2024-11-16 20:03] VITALS: BP 135/78; PULSE 70; RESP 18; TEMP 36.3; O2SAT 100
== END 2024-11-16 20:04 | disposition home or self-care (01) ==
PROVIDERS: Emergency Provider Emergency Medicine
DX: M25.562 Pain in left knee (principal); M54.2 Cervicalgia; V49.88XA Car occupant (driver) (passenger) injured in other specified transport accidents, initial encounter; Y93.89 Activity, other specified; Y92.89 Other specified places as the place of occurrence of the external cause; Y99.8 Other external cause status
CPT/HCPCS: 70450; 71045; 72125; 73564; 99284

== ENCOUNTER → 2024-11-16 17:51 | Outpatient (BNV) | payer OTHER, SELFPAY | PROVIDERS: Emergency Provider Emergency Medicine; Visit Provider Radiology Diagnostic Radiology | DX: M54.2 Cervicalgia (principal); R51.9 Headache, unspecified; M25.562 Pain in left knee; R07.9 Chest pain, unspecified; V89.2XXA Person injured in unspecified motor-vehicle accident, traffic, initial encounter | CPT/HCPCS: 70450; 71045; 72125; 73564 ==

== ENCOUNTER 2024-12-06 13:35 | Outpatient (AMB) | payer OTHER, SELFPAY ==
[2024-12-06 13:37] VITALS: BP 138/84; PULSE 89; O2SAT 98; BMI 35.1
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
--- OUTSIDE RECORDS SUMMARY | 2024-12-06 19:17 | XMS_ITS | Clinical Summary ---
Author Organization [facility] Address [address] [place] [address] Care Team Providers Care Consulting Application Engineer Name Role Phone JamelCookie Primary Care Provider [phone] Medications Omeprazole 20 MG CAPSULE DELAYED RELEASE [...] Mammogram/Breast Imaging 2021 COVID-19 Vaccine ( - 2024-2 6 season) 2024 Influenza (#1) 2024 Zoster (Shingrix) [...] complete this topic Insurance MEDICAID Care Teams Consulting Application Engineer Relationship Specialty Start Date End Date Cookie Mccullough DO [address] [place] [address] PCP - General Family Medicine 07/22/17
--- OUTSIDE RECORDS SUMMARY | 2024-12-06 19:17 | XMS_ITS | Patient Health Record ---
Author Organization [facility] Address [address] [place], [place] [id number] Care Team Providers Care Cath Lab Manager Name Role Phone Cookie Mccullough Primary Care Provider Eric Hall [phone] Reason For Referral No Information Medications Medication SIG (Take, Route, Frequency, Duration) Notes Start Date End Date Status Vitamin D-[address] 1000 UNIT Tablet 1 tablet Orally Once a day; Duration: 30 day(s) 09/09/2017 Active Amitriptyline HCl 10 MG Tablet Orally Once a day Active Cetirizine HCl 10 MG Tablet Orally Once a day Active Omeprazole 20 MG Capsule Delayed Release Orally once a day Active Famotidine 20 MG Tablet 1 tablet at bedt paige Orally Once a day; Duration: 30 day(s) 07/27/2017 Not-Taking/P RN Social History Social History Additional Details Category Social Info Options Details Social History Alcohol: Rare Marital status Children Two sons, Daught er Travel outside [place]. Moved to x 12 years Siblings Three sisters, B rother Problems Problem Type SNOMED Code ICD Code Onset Dates Problem Status W/U Status Risk Notes Problem Angioedema (53021238) Angioedema (T78.3XXA) Active confirmed Problem Seasonal allergic rhinitis (137575729) Seasonal rhinitis (J30.2) Active confirmed Problem Chronic urticaria (44217801) Chronic urticaria (L50.8) Active confirmed Plan Of Treatment No Information Insurance Providers Payer Name Payer Address Payer Phone Subscriber Number Group Number Insured Name Patient Relationship to Insured Coverage Start Date Coverage End Date Medicaid [employer] [address] [place] [id number] Adriana Ribera Self - patient is the insured Medical (General) History Medical History History ICD Code Fibromyalgia Seasonal rhinitis Gastroesophageal reflux
--- OUTSIDE RECORDS SUMMARY | 2024-12-06 19:17 | XMS_ITS | Clinical Summary ---
Author Organization [facility] Address [address] [place] [address] Phone Care Team Providers Care Ship Wirer Name Role Phone Nerissa Robertson MD Primary Care Provider [phone] Allergies No known active allergies Medications meloxicam [...] 06/15/2024 Morbid obesity due to excess calories ([facility] V24, [facility] V28) 12/13/2015 Fibromyalgia 08/22/2014 Chronic lower back pain 08/06/2014 Common migraine 08/06/2014 Hypothyroid 08/06/2014 Positive KERWIN (antinuclear antibody) 08/06/2014 Overview (01/29/2024): 11/01/12 Encounters Date Type Department Care Team Description 09/27/2024 10:38 AM EDT - 09/27/2024 11:59 PM EDT Hospital [facility] [address] [phone] Encounter for screening mammogram for breast cancer Discharge Disposition: Home or Self Care 09/24/2024 1:47 PM EDT - 09/24/2024 5:27 PM EDT Emergency [facility] Emergency [address] [place] [phone] Susan Mazariegos MD Left arm pain (Primary Dx); Abdominal pain, unspecified abdominal location; Chest pain, unspecified type; Abnormal menstrual cycle Discharge Disposition: Home or Self Care 09/14/2024 9:32 AM EDT - 09/14/2024 11:59 PM EDT Hospital Encounter [facility] Ultrasound [address] [place] [phone] Breast mass Discharge Disposition: Home or Self Care 09/13/2024 Telephone Internal Medicine - [address] [place] [address] Nerissa Robertson MD from Last [...] 11/01/12 Morbid obesity due to excess calories ([facility]/H[facility] V24, CMS/HCC V28) 12/13/2015 DX:Morbid obesity due to ex cess calories ([facility]) Fibromyalgia 08/22/2014 DX:Fibromyalgia Family History Medical History [...] Industry Job Start Date Job End Date [employer] Not on file Not on [...] AM EST Office Visit Internal Medicine - [place] [address] [place] [address] Nerissa Robertson MD [address] [place] [address] Health Maintenance Due Date Last [...] year. Mammography location: [facility] [address], [address] -------- FINAL REPORT -------- Dictated By: Benji Reynaga Dictated Date: 09/27/2024 13:25 ET Assigned Physician: Benji Reynaga Reviewed and Electronically Signed By: Benji Reynaga Signed Date: 09/27/2024 13:37 ET Workstation ID: [id number] Transcribed By: Self Edit Transcribed Date: 09/27/2024 13:25 ET Narrative 09/27/2024 1:37 PM EDT EXAM: SCREENING MAMMOGRAPHY, BILATERAL HISTORY: SCREENING. No additional history. COMPARISON: 09/09/23 TECHNIQUE: Synthesized CC and MLO projections of each breast. Tomosynthesis of each breast in the CC and MLO projections. ADDITIONAL IMAGING: None Computer-aided detection was employed with the [employer] AI 3-D. TISSUE DENSITY: There are scattered [...] None Computer-aided detection was employed with the [employer] AI 3-D. TISSUE DENSITY: There are scattered [...] year. Mammography location: [facility] [address], [address] -------- FINAL REPORT -------- Dictated By: Benji Reynaga Dictated Date: 09/27/2024 13:25 ET Assigned Physician: Benji Reynaga Reviewed and Electronically Signed By: Benji Reynaga Signed Date: 09/27/2024 13:37 ET Workstation ID: [id number] Transcribed By: Self Edit Transcribed Date: 09/27/2024 [...] LAB CHEMISTRY METHOD 09/24/2024 4:52 PM EDT [facility] Blood Venous blood specimen / Unknown Venipuncture / Unknown 09/24/2024 4:10 PM EDT 09/24/2024 4:15 PM EDT Narrative [facility] - 09/24/2024 4:52 PM EDT High levels of biotin in samples may falsely decrease hsTroponin values. Use caution when interpreting hsTroponin results in patients taking biotin who exhibit renal impairment (eGFR <60) or in patients taking more than 20 mg/day of biotin. us Susan Mazariegos MD LAB BLOOD ORDERABLES Final Resul t [facility] [address] [place] [address], [place] [phone] * XR Chest 2 Views (09/24/2024 2:28 PM EDT) Anatomical Region Laterality Modality Body Radiographic Deborah ging 09/24/2024 2:34 PM EDT Impressions 09/24/2024 2:35 PM EDT Normal chest radiographs. -------- FINAL REPORT -------- Dictated By: Heath Fernández Dictated Date: 09/24/2024 14:34 ET Assigned Physician: Heath Fernández Reviewed and Electronically Signed By: Heath Fernández Signed Date: 09/24/2024 14:35 ET Workstation ID: [id number] Transcribed By: Self Edit Transcribed Date: 09/24/2024 [...] Signed Date: 09/24/2024 14:35 ET Workstation ID: [id number] Transcribed By: Self Edit Transcribed Date: 09/24/2024 14:34 ET Susan Mazariegos MD IMG XR PROCEDURES Final Result * (ABNORMAL) Urinalysis with reflex microscopic and culture (09/24/2024 2:14 PM EDT) Specific [place] Urine 1.025 1.003 - 1.030 LAB URINALYSIS - AUTOMATED METHOD 09/24/2024 2:50 PM EDT [facility] pH, Urine 6.5 5.0 - 8.0 pH LAB URINALYSIS - AUTOMATED METHOD 09/24/2024 2:50 PM EDT [facility] Leukocytes, Urine Negative Negative LAB URINALYSIS - AUTOMATED METHOD 09/24/2024 2:50 PM [facility] Nitrite, Urine Negative Negative LAB URINALYSIS - AUTOMATED METHOD 09/24/2024 2:50 PM EDT [facility] Protein, Urine Negative <=Trace mg/dL LAB URINALYSIS - AUTOMATED METHOD 09/24/2024 2:50 PM EDT [facility] Glucose, Urine Negative Negative mg/dL LAB URINALYSIS - AUTOMATED METHOD 09/24/2024 2:50 PM [facility] Ketones, Urine Trace(A) Negative mg/dL LAB URINALYSIS - AUTOMATED METHOD 09/24[facility]2024 [facility] Urobilinogen, Urine 1.0 0.2 - 1.0 mg/dL LAB URINALYSIS - AUTOMATED METHOD 09/24/2024 2:50 PM [facility] Bilirubin, Urine Negative Negative LAB URINALYSIS - AUTOMATED METHOD 09/24/2024 2:50 PM EDT [facility] Blood, Urine Negative Negative LAB URINALYSIS - AUTOMATED METHOD 09/24/2024 2:50 PM EDT [facility] Urine Urine specimen obtained by clean catch procedure / Unknown Non-blood Collection / Unknown 09/24/2024 2:14 PM EDT 09/24/2024 2:33 PM EDT us Susan Mazariegos MD LAB URINE ORDERABLES Final Resul t Performing Organization Address [facility]/ZIP Co de Phone Number [facility] [address] [place] [address], [place] [phone] * Parker urine culture tube (09/24/2024 2:14 PM EDT) Extra Tube Hold for add-ons. 09/24/2024 4:01 PM EDT [facility] Comment:Auto resulted. Urine Urine specimen obtained by clean catch procedure / Unknown Non-blood Collection / Unknown 09/24/2024 2:14 PM EDT 09/24/2024 2:34 PM EDT us Susan Mazariegos MD LAB URINE ORDERABLES Final Resul t Performing Organization Address [facility] de Phone Number [facility] [address] [place] [address], [place] [phone] * (ABNORMAL) CBC auto differential (09/24/2024 2:12 PM EDT) WBC 6.6 4.8 - 10.8 K/mcL LAB HEMETOLOGY METHOD 09/24/2024 2:39 PM EDT [facility] RBC 4.60 3.80 - 4.80 M/mcL LAB HEMETOLOGY METHOD 09/24/2024 2:39 PM EDT [facility] Hemoglobin 12.0 11.5 - 16.0 g/dL LAB HEMETOLOGY METHOD 09/24/2024 2:39 PM EDT [facility] Hematocrit 37.3 35.0 - 47.0 % LAB HEMETOLOGY METHOD 09/24/2024 2:39 [facility] MCV 80.9 79.0 - 98.0 FL LAB HEMETOLOGY METHOD 09/24/2024 2:39 PM [facility] MCH 26.0(L) 27.0 - 32.0 pcg LAB HEMETOLOGY METHOD 09/24/2024 2:39 [facility] MCHC 32.2 32.0 - 37.0 g/dL LAB HEMETOLOGY METHOD 09/24/2024 2:39 PM [facility] RDW 14.3 11.0 - 15.0 % LAB HEMETOLOGY METHOD 09/24/2024 2:39 PM [facility] Platelets 228 130 - 400 K/mcL LAB HEMETOLOGY METHOD 09/24/2024 2:39 PM [facility] MPV 9.3 7.0 - 11.0 FL LAB HEMETOLOGY METHOD 09/24/2024 2:39 PM [facility] NRBC 0.0 <1.0 % LAB HEMETOLOGY METHOD 09/24/2024 2:39 PM [facility] NRBC Absolute 0.00 <0.10 K/mcL LAB HEMETOLOGY METHOD 09/24/2024 2:39 PM [facility] Neutrophils Relative 60.5 % LAB HEMETOLOGY METHOD 09/24/2024 2:39 PM [facility] Lymphocytes Relative 30.6 % LAB HEMETOLOGY METHOD 09/24/2024 2:39 PM [facility] Monocytes Relative 6.9 % LAB HEMETOLOGY METHOD 09/24/2024 2:39 PM [facility] Eosinophils Relative 1.4 % LAB HEMETOLOGY METHOD 09/24/2024 2:39 PM EDT [facility] Basophils Relative 0.3 % LAB HEMETOLOGY METHOD 09/24/2024 2:39 PM EDT [facility] Immature Granulocytes Relative 0.3 % LAB HEMETOLOGY METHOD 09/24/2024 2:39 PM EDT [facility] Neutrophils Absolute 4.01 1.50 - 7.00 K/mcL LAB HEMETOLOGY METHOD 09/24/2024 2:39 PM EDT [facility] Lymphocytes Absolute 2.03 1.00 - 5.00 K/mcL LAB HEMETOLOGY METHOD 09/24/2024 2:39 PM EDT [facility] Monocytes Absolute 0.46 0.20 - 1.00 K/mcL LAB HEMETOLOGY METHOD 09/24/2024 2:39 PM EDT [facility] Eosinophils Absolute 0.09 0.00 - 0.50 K/mcL LAB HEMETOLOGY METHOD 09/24/2024 2:39 PM EDT [facility] Basophils Absolute 0.02 0.00 - 0.20 K/mcL LAB HEMETOLOGY METHOD 09/24/2024 2:39 PM EDT [facility] Immature Granulocytes Absolute 0.02 0.00 - 0.03 K/mcL LAB HEMETOLOGY METHOD 09/24/2024 2:39 PM EDT [facility] Blood Venous blood specimen / Unknown Venipuncture / Unknown 09/24/2024 2:12 PM EDT 09/24/2024 2:34 PM EDT us Susan Mazariegos MD LAB BLOOD ORDERABLES Final Resul t [facility] [address] [place] [address], * Lipase (09/24/2024 2:12 PM EDT) Lipase 28 13 - 75 unit/L LAB CHEMISTRY METHOD 09/24/2024 3:08 PM EDT [facility] Blood Venous blood specimen / Unknown Venipuncture / Unknown 09/24/2024 2:12 PM EDT 09/24/2024 2:34 PM EDT Susan Mazariegos MD LAB BLOOD ORDERABLES Final Resul t [facility] [address] [place] [address], [place] [phone] * Comprehensive metabolic panel (09/24/2024 2:12 PM EDT) Pathologist [facility] Sodium 139 133 - 145 mmol/L LAB CHEMISTRY METHOD 09/24/2024 3:29 PM [facility] Potassium 4.4 3.5 - 5.5 mmol/L LAB CHEMISTRY METHOD 09/24/2024 3:29 PM [facility] Chloride 105 96 - 110 mmol/L LAB CHEMISTRY METHOD 09/24/2024 3:29 PM [facility] CO2 31 21 - 32 mmol/L LAB CHEMISTRY METHOD 09/24/2024 3:29 PM [facility] Anion Gap 3 3 - 11 LAB CHEMISTRY METHOD 09/24/2024 3:29 PM [facility] Glucose 87 70 - 100 mg/dL LAB CHEMISTRY METHOD 09/24/2024 3:29 PM [facility] BUN 19 5 - 25 mg/dL LAB CHEMISTRY METHOD 09/24/2024 3:29 PM [facility] Creatinine 1.03 0.50 - 1.10 mg/dL LAB CHEMISTRY METHOD 09/24/2024 3:29 PM [facility] eGFR 69 >=60 mL/min/1. 73m2 LAB CHEMISTRY METHOD 09/24/2024 3:29 PM EDT [facility] Comment:Calculation based on the Chronic Kidney Disease Epidemiology Collaboration (CKD-EPI) equation refit without adjustment for race. BUN/Creatinine Ratio 18.4 LAB CHEMISTRY METHOD 09/24/2024 3:29 PM EDT [facility] Calcium 9.1 8.5 - 10.5 mg/dL LAB CHEMISTRY METHOD 09/24/2024 3:29 PM [facility] AST (SGOT) 15 10 - 42 unit/L LAB CHEMISTRY METHOD 09/24/2024 3:29 PM [facility] ALT (SGPT) 20 10 - 60 unit/L LAB CHEMISTRY METHOD 09/24/2024 3:29 PM [facility] Alkaline Phosphatase 95 42 - 121 unit/L LAB CHEMISTRY METHOD 09/24/2024 3:29 PM [facility] Total Protein 6.7 6.0 - 8.0 g/dL LAB CHEMISTRY METHOD 09/24/2024 3:29 PM [facility] Albumin 3.7 3.2 - 5.0 g/dL LAB CHEMISTRY METHOD 09/24/2024 3:29 PM [facility] Total Bilirubin 0.2 0.0 - 1.4 mg/dL LAB CHEMISTRY METHOD 09/24/2024 3:29 PM [facility] Blood Venous blood specimen / Unknown Venipuncture / Unknown 09/24/2024 2:12 PM EDT 09/24/2024 2:34 PM EDT us Susan Mazariegos MD LAB BLOOD ORDERABLES Final Resul t [facility] [address] [place] [address], * 12-Lead ECG (09/24/2024 2:05 PM EDT) Ventricular Rate ECG 71 BPM GEMUSE Atrial Rate 71 BPM GEMUSE P-R Interval 136 ms GEMUSE QRS Duration 74 ms GEMUSE Q-T Interval 386 ms GEMUSE QTc 419 ms GEMUSE P Wave [place] 33 degrees GEMUSE R [place] 43 degrees GEMUSE T [place] 25 degrees GEMUSE ECG Interpretation Normal sinus [...] MOLECULAR DIAGNOSTICS METHOD 09/21/2024 2:33 PM EDT [facility] Chlamydia trachomatis PCR Negative Negative LAB MOLECULAR DIAGNOSTICS METHOD 09/21/2024 2:33 PM EDT [facility] Urine Urine specimen from urethra / Unknown 09/18/2024 9:29 AM EDT 09/18/2024 9:29 AM EDT Carlos Austin NP LAB MICROBIOLOGY - GENERAL ORDER AGNES Final Result [facility] [address] [place] [address], [place] [phone] * HCG, quantitative (09/18/2024 9:29 AM EDT) hCG Quant <1 mIU/mL LAB CHEMISTRY METHOD 09/18/2024 3:17 PM EDT [facility] Blood Venous blood specimen / Unknown Venipuncture / Unknown 09/18/2024 9:29 AM EDT 09/18/2024 9:29 AM EDT Narrative [facility] - 09/18/2024 3:17 PM EDT Quantitative HCG Reference Ranges Time after Conception MIU/ML 0.2-1 Week 5-50 1-2 Weeks 50-500 2-3 Weeks 100-5,000 3-4 Weeks 500-10,000 4-5 Weeks 1,000-50,000 5-6 Weeks 10,000-100,000 6-8 Weeks 15,000-200,000 2-3 Months 10,000-100,000 2nd Trimester 1,000-94,000 3rd Trimester 2,500-90,000 Non- Females 1-3 us Nerissa Robertson MD LAB BLOOD ORDERABLES Final Res ult [facility] [address] [place] [address], * [place] Breast Limited Right (09/14/2024 10:00 [...] BILATERAL Mammography location: [facility] [address], [address] -------- FINAL REPORT -------- Dictated By: Benji Reynaga Dictated Date: 09/14/2024 09:56 ET Assigned Physician: Benji Reynaga Reviewed and Electronically Signed By: Benji Reynaga Signed Date: 09/14/2024 10:00 ET Workstation ID: [id number] Transcribed By: Self Edit Transcribed Date: 09/14/2024 [...] BILATERAL Mammography location: [facility] [address] [place], [address] -------- FINAL REPORT -------- Dictated By: Benji Reynaga Dictated Date: 09/14/2024 09:56 ET Assigned Physician: Benji Reynaga Reviewed and Electronically Signed By: Benji Reynaga Signed Date: 09/14/2024 10:00 ET Workstation ID: [id number] Transcribed By: Self Edit Transcribed Date: 09/14/2024 09:56 ET us Nerissa Robertson MD IM US PROCEDURES Final Result * Hepatitis C antibody (06/16/2024 10:00 AM EDT) Hepatitis C Antibody Negative Negative LAB CHEMISTRY METHOD 06/16/2024 3:00 PM EDT [facility] Blood Venous blood specimen / Unknown Venipuncture / Unknown 06/16/2024 10:00 AM EDT 06/16/2024 10:24 AM EDT us Carlos Austin NP LAB BLOOD ORDERABLES Final Resul t [facility] [address] [place] [address], [place] [phone] * HIV 1,2 antibody, p24 antigen with reflex to differentiation (06/16/2024 10:00 AM EDT) HIV Combo AB/AG Negative Negative LAB CHEMISTRY METHOD 06/16/2024 3:00 PM EDT [facility] Blood Venous blood specimen / Unknown Venipuncture / Unknown 06/16/2024 10:00 AM EDT 06/16/2024 10:24 AM EDT Narrative [facility] - 06/16/2024 3:00 PM EDT This [...] NP LAB BLOOD ORDERABLES Final Resul t [facility] [address] [place] [address], [place] [phone] * Lipid panel with reflex to direct LDL (06/16/2024 10:00 AM EDT) Cholesterol 175 0 - 200 mg/dL LAB CHEMISTRY METHOD 06/16/2024 1:23 PM EDT [facility] Triglycerides 88 0 - 150 mg/dL LAB CHEMISTRY METHOD 06/16/2024 1:23 PM EDT [facility] HDL 58 >=40 mg/dL LAB CHEMISTRY METHOD 06/16/2024 1:23 PM EDT [facility] LDL Calculated 99 0 - 100 mg/dL LAB CHEMISTRY METHOD 06/16/2024 1:23 PM [facility] VLDL Cholesterol Nestor 17.6 mg/dL LAB CHEMISTRY METHOD 06/16/2024 1:23 PM T [facility] Non HDL Chol. (LDL+VLDL) 117 <145 mg/dL LAB CHEMISTRY METHOD 06/16/2024 1:23 PM EDT [facility] Chol/HDL Ratio 3.0 0.0 - 4.4 LAB CHEMISTRY METHOD 06/16/2024 1:23 PM [facility] Blood Venous blood specimen / Unknown Venipuncture / Unknown 06/16/2024 10:00 AM EDT 06/16/2024 10:24 AM EDT Carlos Austin [facility] LAB BLOOD ORDERABLES Final Resul t [facility] [address] [place] [address], * Depression Screening (12/10/2023) [facility] Signature Depression Screening abstracted Historical Provider MD HEALTH MAINTENANCE Final Result from Last 3 Months or Most Recently Relevant to Health Maintenance Insurance [employer] Care Teams Ship Wirer Relationship Specialty Start Date End Date Nerissa Robertson MD [address] [phone] PCP - General Internal Medicine 03/14/24
--- OUTSIDE RECORDS SUMMARY | 2024-12-06 19:17 | XMS_ITS | Encounter Summary ---
Author Organization [facility] Address [address] [place] [address] Care Team Providers Care Crm Manager Name Role Phone JamelCookie swenson Primary Care Provider [phone] Encounter Details Date Type Department Care Team (Late st Contact Info) Description 09/03/2017 Orders Only [facility] Rheumatology [address] [place] [phone] Cait Walters MD Social History Tobacco Use [...] of this encounter Procedures * Due to [place] state law, this organization might not be sharing negative HIV tests. Procedure Name Priority Date/Time Associated Diagnosis Comments KERWIN IFA, W/ REFLEX TO TITER/PATTERN/COMPREHE NSIVE AB PANEL Routine 09/03/2017 1:39 PM EDT Arthralgia, unspecified joint RHEUMATOID ARTHRITIS DIAGNOSTIC PANEL Routine 09/03/2017 1:39 PM EDT Arthralgia, unspecified joint CHROMATIN (NUCLEOSOMAL) ANTIBODY Routine 09/03/2017 1:39 PM EDT SM/CHARTER DRIVER ANTIBODY Routine 09/03/2017 1:39 PM EDT Arthralgia, unspecified joint CHARTER DRIVER ANTIBODY Routine 09/03/2017 1:39 PM EDT SM [...] in this encounter Results * Due to [place] state law, this organization might not be sharing negative HIV tests. * SM ANTIBODY (09/03/2017 1:39 PM EDT) Pathologist Rudy Santana extractable nuclear Ab <1.0 NEG <1.0 NEG AI [facility] 09/03/2017 1:39 PM EDT 09/03/2017 10:38 PM EDT us Cait Walters MD LABORATORY Final Result Performing Organization Address [facility] Co de Phone Number [facility] [address] [place] [address] * CHROMATIN (NUCLEOSOMAL) ANTIBODY (09/03/2017 1:39 PM EDT) Nucleosome Ab <1.0 NEG <1.0 NEG AI [facility] 09/03/2017 1:39 PM EDT 09/03/2017 10:38 PM EDT us Cait Walters MD LABORATORY Final Result Performing Organization Address [facility] Phone Number [facility] [address] [place] [address] * CHARTER DRIVER ANTIBODY (09/03/2017 1:39 PM EDT) Ribonucleoprotein extractable nuclear Ab <1.0 NEG <1.0 NEG AI [facility] 09/03/2017 1:39 PM EDT 09/03/2017 10:38 PM EDT us Cait Walters MD LABORATORY Final Result Performing Organization Address [facility] Phone Number [facility] [address] [place] [address] * CENTROMERE B ANTIBODY (09/03/2017 1:39 PM EDT) Centromere protein B Ab <1.0 NEG <1.0 NEG [facility] 09/03/2017 1:39 PM EDT 09/03/2017 10:38 PM EDT us Cait Walters MD LABORATORY Final Result Performing Organization Address [facility] Co de Phone Number [facility] [address] [place] [address] * NIYA-1 ANTIBODY (09/03/2017 1:39 PM EDT) Niya-1 extractable nuclear Ab <1.0 NEG <1.0 NEG [facility] 09/03/2017 1:39 PM EDT 09/03/2017 10:38 PM EDT us Cait Walters MD LABORATORY Final Result Performing Organization Address [facility] de Phone Number [facility] [address] [place] [address] * SCLERODERMA 70 ANTIBODY (SCL-70) (09/03/2017 1:39 PM EDT) SCL-70 extractable nuclear Ab <1.0 NEG <1.0 NEG AI [facility] 09/03/2017 1:39 PM EDT 09/03/2017 10:38 PM EDT us Cait Walters MD LABORATORY Final Result Performing Organization Address [facility] Phone Number [facility] [address] [place] [phone] * RIBOSOMAL P ANTIBODY (09/03/2017 1:39 PM EDT) Ribosomal P Ab <1.0 NEG <1.0 NEG AI [facility] 09/03/2017 1:39 PM EDT 09/03/2017 10:38 PM EDT us Cait Walters MD LABORATORY Final Result Performing Organization Address [facility] Phone Number [facility] [address] [place] [address] * TSH, 3RD GENERATION (09/03/2017 1:39 PM EDT) TSH 1.39 mIU/L [facility] Comment: Reference Range > or = 20 Years 0.40-4.50 Ranges First trimester 0.26-2.66 Second trimester 0.55-2.73 Third trimester 0.43-2.91 09/03/2017 1:39 PM EDT 09/03/2017 10:38 PM EDT Narrative Resulting Agency Comment [id number] us Cait Walters MD LABORATORY Final Result Performing Organization Address [facility] Co de Phone Number [facility] [address] [place] [address] * SJOGRENS SYNDROME ANTIBODIES (SSA AND SSB) (09/03/2017 1:39 PM EDT) Sjogrens syndrome-A extractable nuclear Ab <1.0 NEG <1.0 NEG AI [facility] Sjogrens syndrome-B extractable nuclear Ab <1.0 NEG <1.0 NEG AI [facility] 09/03/2017 1:39 PM EDT 09/03/2017 10:38 PM EDT Narrative Resulting Agency Comment [id number] us Cait Walters MD LABORATORY Final Result Performing Organization Address [facility] Co de Phone Number [facility] [address] [place] [address] * ERYTHROCYTE SEDIMENTATION RATE (ESR), WESTERGREN (09/03/2017 1:39 PM EDT) Sedimentation Rate Westegren (ESR) 9 < OR = 20 mm/h [facility] 09/03/2017 1:39 PM EDT 09/03/2017 10:38 PM EDT Narrative Resulting Agency Comment [id number] us Cait Walters MD LAB SAME DAY RESULT Final Result Performing Organization Address [facility] de Phone Number [facility] [address] [place] [phone] * RHEUMATOID ARTHRITIS DIAGNOSTIC PANEL (09/03/2017 1:39 [...] 10:38 PM EDT Narrative Resulting Agency Comment [id number] us Cait Walters MD LABORATORY Final Result [facility] [address] [place] [address] * C-REACTIVE PROTEIN (CRP) - INFLAMMATION (09/03/2017 1:39 PM EDT) C reactive protein 7.0 <8.0 mg/L [facility] 09/03/2017 1:39 PM EDT 09/03/2017 10:38 PM EDT Narrative Resulting Agency Comment [id number] Cait Walters MD LABORATORY Final Result Performing Organization Address [facility] Co de Phone Number [facility] [address] [place] [address] * (ABNORMAL) COMPREHENSIVE METABOLIC PANEL WITH GFR [...] needs for GFR calculation. Resulting Agency Comment [id number] Cait Walters MD LABORATORY Final Result [facility] [address] [place] [address] * CBC INCLUDES DIFFERENTIAL AND PLATELET COUNT [...] 10:38 PM EDT Narrative Resulting Agency Comment [id number] us Cait Walters MD LAB SAME DAY RESULT Final Result Performing Organization Address [facility] Co de Phone Number [facility] [address] [place] [address] * SM/CHARTER DRIVER ANTIBODY (09/03/2017 1:39 PM EDT) Santana extractable nuclear Ab+Ribonucleopr otein extractable nuclear Ab <1.0 NEG <1.0 NEG AI [facility] 09/03/2017 1:39 PM EDT 09/03/2017 10:38 PM EDT Narrative Resulting Agency Comment [id number] us Cait Walters MD LABORATORY Final Result Performing Organization Address [facility] Co de Phone Number [facility] [address] [place] [address] * DNA (DS) ANTIBODY (09/03/2017 1:39 PM EDT) Pathologist [facility] Dna (DS) Antibody <1 IU/mL [facility] Comment: IU/mL Interpretation < or = 4 Negative 5-9 Indeterminate > or = 10 Positive 09/03/2017 1:39 PM EDT 09/03/2017 10:38 PM EDT Narrative Resulting Agency Comment [id number] us Cait Walters MD LABORATORY Final Result Performing Organization Address [facility] Co de Phone Number [facility] [address] [place] [address] * (ABNORMAL) KERWIN IFA, W/ REFLEX TO [...] for interpretation of all antibodies in the [place], prevalence, and association with diseases at http://education.Razient/ faq/GDZ387 KERWIN Pattern SPECKLED( A) [facility] Comment: [...] 10:38 PM EDT Narrative Resulting Agency Comment [id number] Cait Walters MD LABORATORY Final Result [facility] [address] [place] [address] documented in this encounter Visit Diagnoses Diagnosis Arthralgia, unspecified joint documented in this encounter Care Teams Crm Manager Relationship Specialty Start Date End Date Cookie Mccullough DO [address] [place] [address] PCP - General Family Medicine 07/22/17 documented as of this encounter
--- OUTSIDE RECORDS SUMMARY | 2024-12-06 19:17 | XMS_ITS | Encounter Summary ---
Author Organization [facility] Address [address] [place] [address] Care Team Providers Care Steam Drier Operator Name Role Phone Cookie Mccullough Primary Care Provider [phone] Encounter Details Date Type Department Care Team (Late st Contact Info) Description 01/04/2018 Orders Only [facility] Rheumatology [address] [place] [phone] Cait Walters MD Social History Tobacco [...] of this encounter Procedures * Due to [facility] law, this organization might not be sharing negative HIV tests. Procedure Name Priority Date/Time Associated Diagnosis Comments THYROID STIMULATING HORMONE (TSH) WITH FREE T4 REFLEX, SERUM Routine 01/04/2018 11:59 AM EST Hair loss documented in this encounter Results * Due to [place] [employer] law, this organization might not be sharing negative HIV tests. * THYROID STIMULATING HORMONE (TSH) WITH FREE T4 REFLEX, SERUM (01/04/2018 11:59 AM EST) TSH 1.48 mIU/L [facility] Comment: Reference Range > or = 20 Years 0.40-4.50 Ranges First trimester 0.26-2.66 Second trimester 0.55-2.73 Third trimester 0.43-2.91 01/04/2018 11:5 9 AM EST 01/04/2018 6:18 PM EST Narrative Resulting Agency Comment [id number] Cait Walters MD LABORATORY Final Result [facility] [address] [place] [address] documented in this encounter Visit Diagnoses Diagnosis Hair loss Alopecia, unspecified documented in this encounter Care Teams Steam Drier Operator Relationship Specialty Start Date End Date Cookie Mccullough DO [address] [place] [address] PCP - General Family Medicine 07/22/17 documented as of this encounter
== END 2024-12-06 14:29 | disposition home or self-care (01) ==
LOC: HO.RHES 13:36
PROVIDERS: PCP Internal Medicine; Visit Provider Student in an Organized Health Care Education/Training Program
DX: M79.7 Fibromyalgia (principal); R76.0 Raised antibody titer
CPT/HCPCS: 99215

== ENCOUNTER → 2024-12-06 13:35 | Outpatient (BNVA) | payer OTHER, SELFPAY | PROVIDERS: PCP Internal Medicine; Visit Provider Student in an Organized Health Care Education/Training Program | DX: M79.7 Fibromyalgia (principal); Z79.899 Other long term (current) drug therapy | CPT/HCPCS: 99212 ==

== ENCOUNTER 2024-12-12 10:11 | Outpatient (REF) | payer OTHER, SELFPAY ==
--- OUTSIDE RECORDS SUMMARY | 2024-12-12 12:24 | XMS_ITS | Patient Health Record ---
Author Organization [facility] Address [address] [place], [place] [id number] Care Team Providers Care Kiln Hand Name Role Phone Cookie Mccullough Primary Care Provider Eric Hall [phone] Reason For Referral No Information Medications Medication [...] Children Two sons, Daught er Travel outside [place]. Moved to x 12 years Siblings Three sisters, B rother Problems Problem Type SNOMED Code ICD Code Onset Dates Problem Status W/U Status Risk Notes Problem Angioedema (99348217) Angioedema (T78.3XXA) Active confirmed Problem Seasonal allergic rhinitis (658904594) Seasonal rhinitis (J30.2) Active confirmed Problem Chronic urticaria (39902750) Chronic urticaria (L50.8) Active confirmed Plan Of Treatment No Information Insurance Providers Payer Name Payer Address Payer Phone Subscriber Number Group Number Insured Name Patient Relationship to Insured Coverage Start Date Coverage End Date Medicaid [employer] [address] [place] [id number] Adriana Ribera Self - patient is the insured Medical (General) History Medical History History ICD Code Fibromyalgia Seasonal rhinitis Gastroesophageal reflux
--- OUTSIDE RECORDS SUMMARY | 2024-12-12 12:24 | XMS_ITS | Encounter Summary ---
Author Organization [facility] Address [address] [place] [address] Care Team Providers Care Microfilm Processor Name Role Phone JamelCookie swenson Primary Care Provider [phone] Encounter Details Date Type Department Care Team (Late st Contact Info) Description 09/03/2017 Orders Only [facility] Rheumatology [address] [place] [phone] Cait Walters MD Social History Tobacco Use [...] of this encounter Procedures * Due to [place] state law, this organization might not be sharing negative HIV tests. Procedure Name Priority Date/Time Associated Diagnosis Comments KERWIN IFA, W/ REFLEX TO TITER/PATTERN/COMPREHE NSIVE AB PANEL Routine 09/03/2017 1:39 PM EDT Arthralgia, unspecified joint RHEUMATOID ARTHRITIS DIAGNOSTIC PANEL Routine 09/03/2017 1:39 PM EDT Arthralgia, unspecified joint CHROMATIN (NUCLEOSOMAL) ANTIBODY Routine 09/03/2017 1:39 PM EDT SM/DIRECTOR ORACLE RETAIL ANTIBODY Routine 09/03/2017 1:39 PM EDT Arthralgia, unspecified joint DIRECTOR ORACLE RETAIL ANTIBODY Routine 09/03/2017 1:39 PM EDT SM [...] this encounter Results * Due to [place] state law, this organization might not be sharing negative HIV tests. * SM ANTIBODY (09/03/2017 1:39 PM EDT) Pathologist Rudy Santana extractable nuclear Ab <1.0 NEG <1.0 NEG [facility] 09/03/2017 1:39 PM EDT 09/03/2017 10:38 PM EDT us Cait Walters MD LABORATORY Final Result Performing Organization Address [facility] Co de Phone Number [facility] [address] [place] [address] * CHROMATIN (NUCLEOSOMAL) ANTIBODY (09/03/2017 1:39 PM EDT) Nucleosome Ab <1.0 NEG <1.0 NEG [facility] 09/03/2017 1:39 PM EDT 09/03/2017 10:38 PM EDT us Cait Walters MD LABORATORY Final Result Performing Organization Address [facility] Phone Number [facility] [address] [place] [address] * DIRECTOR ORACLE RETAIL ANTIBODY (09/03/2017 1:39 PM EDT) Ribonucleoprotein extractable nuclear Ab <1.0 NEG <1.0 NEG [facility] 09/03/2017 1:39 PM EDT 09/03/2017 10:38 PM EDT us Cait Walters MD LABORATORY Final Result Performing Organization Address [facility] Phone Number [facility] [address] [place] [address] * CENTROMERE B ANTIBODY (09/03/2017 1:39 PM EDT) Centromere protein B Ab <1.0 NEG <1.0 NEG [facility] 09/03/2017 1:39 PM EDT 09/03/2017 10:38 PM EDT us Cait Walters MD LABORATORY Final Result Performing Organization Address [facility] Co de Phone Number [facility] [address] [place] [address] * NIYA-1 ANTIBODY (09/03/2017 1:39 PM EDT) Niya-1 extractable nuclear Ab <1.0 NEG <1.0 NEG [facility] 09/03/2017 1:39 PM EDT 09/03/2017 10:38 PM EDT us Cait Walters MD LABORATORY Final Result Performing Organization Address [facility] de Phone Number [facility] [address] [place] [address] * SCLERODERMA 70 ANTIBODY (SCL-70) (09/03/2017 1:39 PM EDT) SCL-70 extractable nuclear Ab <1.0 NEG <1.0 NEG AI [facility] 09/03/2017 1:39 PM EDT 09/03/2017 10:38 PM EDT us Cait Walters MD LABORATORY Final Result Performing Organization Address [facility] Phone Number [facility] [address] [place] [phone] * RIBOSOMAL P ANTIBODY (09/03/2017 1:39 PM EDT) Ribosomal P Ab <1.0 NEG <1.0 NEG AI [facility] 09/03/2017 1:39 PM EDT 09/03/2017 10:38 PM EDT us Cait Walters MD LABORATORY Final Result Performing Organization Address [facility] Phone Number [facility] [address] [place] [address] * TSH, 3RD GENERATION (09/03/2017 1:39 PM EDT) TSH 1.39 mIU/L [facility] Comment: Reference Range > or = 20 Years 0.40-4.50 Ranges First trimester 0.26-2.66 Second trimester 0.55-2.73 Third trimester 0.43-2.91 09/03/2017 1:39 PM EDT 09/03/2017 10:38 PM EDT Narrative Resulting Agency Comment [id number] us Cait Walters MD LABORATORY Final Result Performing Organization Address [facility] Co de Phone Number [facility] [address] [place] [address] * SJOGRENS SYNDROME ANTIBODIES (SSA AND SSB) (09/03/2017 1:39 PM EDT) Sjogrens syndrome-A extractable nuclear Ab <1.0 NEG <1.0 NEG AI [facility] Sjogrens syndrome-B extractable nuclear Ab <1.0 NEG <1.0 NEG AI [facility] 09/03/2017 1:39 PM EDT 09/03/2017 10:38 PM EDT Narrative Resulting Agency Comment [id number] us Cait Walters MD LABORATORY Final Result Performing Organization Address [facility] Co de Phone Number [facility] [address] [place] [address] * ERYTHROCYTE SEDIMENTATION RATE (ESR), WESTERGREN (09/03/2017 1:39 PM EDT) Sedimentation Rate Westegren (ESR) 9 < OR = 20 mm/h [facility] 09/03/2017 1:39 PM EDT 09/03/2017 10:38 PM EDT Narrative Resulting Agency Comment [id number] us Cait Walters MD LAB SAME DAY RESULT Final Result Performing Organization Address [facility] de Phone Number [facility] [address] [place] [phone] * RHEUMATOID ARTHRITIS DIAGNOSTIC PANEL (09/03/2017 1:39 [...] 10:38 PM EDT Narrative Resulting Agency Comment [id number] us Cait Walters MD LABORATORY Final Result [facility] [address] [place] [address] * C-REACTIVE PROTEIN (CRP) - INFLAMMATION (09/03/2017 1:39 PM EDT) C reactive protein 7.0 <8.0 mg/L [facility] 09/03/2017 1:39 PM EDT 09/03/2017 10:38 PM EDT Narrative Resulting Agency Comment [id number] Cait Walters MD LABORATORY Final Result Performing Organization Address [facility] Co de Phone Number [facility] [address] [place] [address] * (ABNORMAL) COMPREHENSIVE METABOLIC PANEL WITH GFR [...] needs for GFR calculation. Resulting Agency Comment [id number] Cait Walters MD LABORATORY Final Result [facility] [address] [place] [address] * CBC INCLUDES DIFFERENTIAL AND PLATELET COUNT [...] 10:38 PM EDT Narrative Resulting Agency Comment [id number] us Cait Walters MD LAB SAME DAY RESULT Final Result Performing Organization Address [facility] Co de Phone Number [facility] [address] [place] [address] * SM/DIRECTOR ORACLE RETAIL ANTIBODY (09/03/2017 1:39 PM EDT) Santana extractable nuclear Ab+Ribonucleopr otein extractable nuclear Ab <1.0 NEG <1.0 NEG AI [facility] 09/03/2017 1:39 PM EDT 09/03/2017 10:38 PM EDT Narrative Resulting Agency Comment [id number] us Cait Walters MD LABORATORY Final Result Performing Organization Address [facility] Co de Phone Number [facility] [address] [place] [address] * DNA (DS) ANTIBODY (09/03/2017 1:39 PM EDT) Pathologist [facility] Dna (DS) Antibody <1 IU/mL [facility] Comment: IU/mL Interpretation < or = 4 Negative 5-9 Indeterminate > or = 10 Positive 09/03/2017 1:39 PM EDT 09/03/2017 10:38 PM EDT Narrative Resulting Agency Comment [id number] us Cait Walters MD LABORATORY Final Result Performing Organization Address [facility] Co de Phone Number [facility] [address] [place] [address] * (ABNORMAL) KERWIN IFA, W/ REFLEX TO [...] for interpretation of all antibodies in the [place], prevalence, and association with diseases at http://education.HubCast/ faq/ILQ946 KERWIN Pattern SPECKLED( A) [facility] Comment: [...] 10:38 PM EDT Narrative Resulting Agency Comment [id number] Cait Walters MD LABORATORY Final Result [facility] [address] [place] [address] documented in this encounter Visit Diagnoses Diagnosis Arthralgia, unspecified joint documented in this encounter Care Teams Microfilm Processor Relationship Specialty Start Date End Date Cookie Mccullough DO [address] [place] [address] PCP - General Family Medicine 07/22/17 documented as of this encounter
--- OUTSIDE RECORDS SUMMARY | 2024-12-12 12:24 | XMS_ITS | Encounter Summary ---
Author Organization [facility] Address [address] [place] [address] Care Team Providers Care Septic Tank Setter Name Role Phone Cookie Mccullough Primary Care Provider [phone] Encounter Details Date Type Department Care Team (Late st Contact Info) Description 01/04/2018 Orders Only [facility] Rheumatology [address] [place] [phone] Cait Walters MD Social History Tobacco [...] of this encounter Procedures * Due to [facility] law, this organization might not be sharing negative HIV tests. Procedure Name Priority Date/Time Associated Diagnosis Comments THYROID STIMULATING HORMONE (TSH) WITH FREE T4 REFLEX, SERUM Routine 01/04/2018 11:59 AM EST Hair loss documented in this encounter Results * Due to [place] [employer] law, this organization might not be sharing negative HIV tests. * THYROID STIMULATING HORMONE (TSH) WITH FREE T4 REFLEX, SERUM (01/04/2018 11:59 AM EST) TSH 1.48 mIU/L [facility] Comment: Reference Range > or = 20 Years 0.40-4.50 Ranges First trimester 0.26-2.66 Second trimester 0.55-2.73 Third trimester 0.43-2.91 01/04/2018 11:5 9 AM EST 01/04/2018 6:18 PM EST Narrative Resulting Agency Comment [id number] Cait Walters MD LABORATORY Final Result [facility] [address] [place] [address] documented in this encounter Visit Diagnoses Diagnosis Hair loss Alopecia, unspecified documented in this encounter Care Teams Septic Tank Setter Relationship Specialty Start Date End Date Cookie Mccullough DO [address] [place] [address] PCP - General Family Medicine 07/22/17 documented as of this encounter
--- OUTSIDE RECORDS SUMMARY | 2024-12-12 12:24 | XMS_ITS | Clinical Summary ---
Author Organization [facility] Address [address] [place] [address] Phone Care Team Providers Care Postal Carrier Name Role Phone Nerissa Robertson MD Primary Care Provider [phone] Allergies No known active allergies Medications meloxicam [...] not crush or chew. 60 each 06/15/2024 Active levocetirizine (Xyzal) 5 mg tabletIndication s:Seasonal [...] 06/15/2024 Morbid obesity due to excess calories ([facility] V24, [facility] V28) 12/13/2015 Fibromyalgia 08/22/2014 Chronic lower back pain 08/06/2014 Common migraine 08/06/2014 Hypothyroid 08/06/2014 Positive KERWIN (antinuclear antibody) 08/06/2014 Overview (01/29/2024): 11/01/12 Encounters Date Type Department Care Team Description 09/27/2024 10:38 AM EDT - 09/27/2024 11:59 PM EDT [facility] [address] [phone] Encounter for screening mammogram for breast cancer Discharge Disposition: Home or Self Care 09/24/2024 1:47 PM EDT - 09/24/2024 5:27 PM EDT Emergency [facility] [address] [place] [phone] Susan Mazariegos MD Left arm pain (Primary Dx); Abdominal pain, unspecified abdominal location; Chest pain, unspecified type; Abnormal menstrual cycle Discharge Disposition: Home or Self Care 09/14/2024 9:32 AM EDT - 09/14/2024 11:59 PM EDT Hospital Encounter [facility] Ultrasound [address] [place] [phone] Breast mass Discharge Disposition: Home or Self Care 09/13/2024 Telephone Internal Medicine - [address] [place] [address] Nerissa Robertson MD from Last [...] 11/01/12 Morbid obesity due to excess calories ([facility] V24, [facility] V28) 12/13/2015 DX:Morbid obesity due to ex cess calories ([facility]) Fibromyalgia 08/22/2014 DX:Fibromyalgia Family History Medical History [...] Industry Job Start Date Job End Date [employer] Not on file Not on [...] AM EST Office Visit Internal Medicine - [address] [place] [address] Nerissa Robertson MD [address] [place] [phone] Health Maintenance Due Date Last Done Comments [...] mammogram BILATERAL in 1 year. Mammography location: [facility] at [address], [address] -------- FINAL REPORT -------- Dictated By: Benji Reynaga Dictated Date: 09/27/2024 13:25 ET Assigned Physician: Benji Reynaga Reviewed and Electronically Signed By: Benji Reynaga Signed Date: 09/27/2024 13:37 ET Workstation ID: [id number] Transcribed By: Self Edit Transcribed Date: 09/27/2024 13:25 ET Narrative 09/27/2024 1:37 PM EDT EXAM: SCREENING MAMMOGRAPHY, BILATERAL HISTORY: SCREENING. No additional history. COMPARISON: 09/09/23 TECHNIQUE: Synthesized CC and MLO projections of each breast. Tomosynthesis of each breast in the CC and MLO projections. ADDITIONAL IMAGING: None Computer-aided detection was employed with the [employer] AI 3-D. TISSUE DENSITY: There are scattered [...] None Computer-aided detection was employed with the [employer] AI 3-D. TISSUE DENSITY: There are scattered [...] year. [facility]amm[facility] [address], [address] -------- FINAL REPORT -------- Dictated By: Benji Reynaga Dictated Date: 09/27/2024 13:25 ET Assigned Physician: Benji Reynaga Reviewed and Electronically Signed By: Benji Reynaga Signed Date: 09/27/2024 13:37 ET Workstation ID: [id number] Transcribed By: Self Edit Transcribed Date: 09/27/2024 [...] LAB CHEMISTRY METHOD 09/24/2024 4:52 PM EDT [facility] Blood Venous blood specimen / Unknown Venipuncture / Unknown 09/24/2024 4:10 PM EDT 09/24/2024 4:15 PM EDT Narrative [facility] - 09/24/2024 4:52 PM EDT High levels of biotin in samples may falsely decrease hsTroponin values. Use caution when interpreting hsTroponin results in patients taking biotin who exhibit renal impairment (eGFR <60) or in patients taking more than 20 mg/day of biotin. us Susan Mazariegos MD LAB BLOOD ORDERABLES Final Resul t [facility] [address] [place] [address], [place] [phone] * XR Chest 2 Views (09/24/2024 2:28 PM EDT) Anatomical Region Laterality Modality Body Radiographic Deborah ging 09/24/2024 2:34 PM EDT Impressions 09/24/2024 2:35 PM EDT Normal chest radiographs. -------- FINAL REPORT -------- Dictated By: Heath Fernández Dictated Date: 09/24/2024 14:34 ET Assigned Physician: Heath Fernández Reviewed and Electronically Signed By: Heath Fernández Signed Date: 09/24/2024 14:35 ET Workstation ID: [id number] Transcribed By: Self Edit Transcribed Date: 09/24/2024 [...] Signed Date: 09/24/2024 14:35 ET Workstation ID: [id number] Transcribed By: Self Edit Transcribed Date: 09/24/2024 14:34 ET Susan Mazariegos MD IMG XR PROCEDURES Final Result * (ABNORMAL) Urinalysis with reflex microscopic and culture (09/24/2024 2:14 PM EDT) Specific [place] Urine 1.025 1.003 - 1.030 LAB URINALYSIS - AUTOMATED METHOD 09/24/2024 2:50 PM EDT [facility] pH, Urine 6.5 5.0 - 8.0 pH LAB URINALYSIS - AUTOMATED METHOD 09/24/2024 2:50 PM [facility] Leukocytes, Urine Negative Negative LAB URINALYSIS - AUTOMATED METHOD 09/24/2024 2:50 PM [facility] Nitrite, Urine Negative Negative LAB URINALYSIS - AUTOMATED METHOD 09/24/2024 2:50 PM [facility] Protein, Urine Negative <=Trace mg/dL LAB URINALYSIS - AUTOMATED METHOD 09/24/2024 2:50 PM [facility] Glucose, Urine Negative Negative mg/dL LAB URINALYSIS - AUTOMATED METHOD 09/24/2024 2:50 PM [facility] Ketones, Urine Trace(A) Negative mg/dL LAB URINALYSIS - AUTOMATED METHOD 09/24/2024 2:50 PM [facility] Urobilinogen, Urine 1.0 0.2 - 1.0 mg/dL LAB URINALYSIS - AUTOMATED METHOD 09/24/2024 2:50 PM [facility] Bilirubin, Urine Negative Negative LAB URINALYSIS - AUTOMATED METHOD 09/24/2024 2:50 PM EDT [facility] Blood, Urine Negative Negative LAB URINALYSIS - AUTOMATED METHOD 09/24/2024 2:50 PM EDT [facility] Urine Urine specimen obtained by clean catch procedure / Unknown Non-blood Collection / Unknown 09/24/2024 2:14 PM EDT 09/24/2024 2:33 PM EDT us Susan Mazariegos MD LAB URINE ORDERABLES Final Resul t Performing Organization Address [facility]/ZIP Co de Phone Number [facility] [address] [place] [address], [place] [phone] * Parker urine culture tube (09/24/2024 2:14 PM EDT) Extra Tube Hold for add-ons. 09/24/2024 4:01 PM EDT [facility] Comment:Auto resulted. Urine Urine specimen obtained by clean catch procedure / Unknown Non-blood Collection / Unknown 09/24/2024 2:14 PM EDT 09/24/2024 2:34 PM EDT us Susan Mazariegos MD LAB URINE ORDERABLES Final Resul t Performing Organization Address [facility] de Phone Number [facility] [address] [place] [address], [place] [phone] * (ABNORMAL) CBC auto differential (09/24/2024 2:12 PM EDT) WBC 6.6 4.8 - 10.8 K/mcL LAB HEMETOLOGY METHOD 09/24/2024 2:39 PM EDT [facility] RBC 4.60 3.80 - 4.80 M/mcL LAB HEMETOLOGY METHOD 09/24/2024 2:39 PM EDT [facility] Hemoglobin 12.0 11.5 - 16.0 g/dL LAB HEMETOLOGY METHOD 09/24/2024 2:39 PM EDT [facility] Hematocrit 37.3 35.0 - 47.0 % LAB HEMETOLOGY METHOD 09/24/2024 2:39 PM [facility] MCV 80.9 79.0 - 98.0 FL LAB HEMETOLOGY METHOD 09/24/2024 2:39 PM [facility] MCH 26.0(L) 27.0 - 32.0 pcg LAB HEMETOLOGY METHOD 09/24/2024 2:39 PM [facility] MCHC 32.2 32.0 - 37.0 g/dL LAB HEMETOLOGY METHOD 09/24/2024 2:39 PM [facility] RDW 14.3 11.0 - 15.0 % LAB HEMETOLOGY METHOD 09/24/2024 2:39 PM [facility] Platelets 228 130 - 400 K/mcL LAB HEMETOLOGY METHOD 09/24/2024 2:39 PM [facility] MPV 9.3 7.0 - 11.0 FL LAB HEMETOLOGY METHOD 09/24/2024 2:39 PM [facility] NRBC 0.0 <1.0 % LAB HEMETOLOGY METHOD 09/24/2024 2:39 PM [facility] NRBC Absolute 0.00 <0.10 K/mcL LAB HEMETOLOGY METHOD 09/24/2024 2:39 PM [facility] Neutrophils Relative 60.5 % LAB HEMETOLOGY METHOD 09/24/2024 2:39 PM [facility] Lymphocytes Relative 30.6 % LAB HEMETOLOGY METHOD 09/24/2024 2:39 PM [facility] Monocytes Relative 6.9 % LAB HEMETOLOGY METHOD 09/24/2024 2:39 PM [facility] Eosinophils Relative 1.4 % LAB HEMETOLOGY METHOD 09/24/2024 2:39 PM EDT [facility] Basophils Relative 0.3 % LAB HEMETOLOGY METHOD 09/24/2024 2:39 PM EDT [facility] Immature Granulocytes Relative 0.3 % LAB HEMETOLOGY METHOD 09/24/2024 2:39 PM EDT [facility] Neutrophils Absolute 4.01 1.50 - 7.00 K/mcL LAB HEMETOLOGY METHOD 09/24/2024 2:39 PM EDT [facility] Lymphocytes Absolute 2.03 1.00 - 5.00 K/mcL LAB HEMETOLOGY METHOD 09/24/2024 2:39 PM EDT [facility] Monocytes Absolute 0.46 0.20 - 1.00 K/mcL LAB HEMETOLOGY METHOD 09/24/2024 2:39 PM EDT [facility] Eosinophils Absolute 0.09 0.00 - 0.50 K/mcL LAB HEMETOLOGY METHOD 09/24/2024 2:39 PM EDT [facility] Basophils Absolute 0.02 0.00 - 0.20 K/mcL LAB HEMETOLOGY METHOD 09/24/2024 2:39 PM EDT [facility] Immature Granulocytes Absolute 0.02 0.00 - 0.03 K/mcL LAB HEMETOLOGY METHOD 09/24/2024 2:39 PM EDT [facility] Blood Venous blood specimen / Unknown Venipuncture / Unknown 09/24/2024 2:12 PM EDT 09/24/2024 2:34 PM EDT us Susan Mazariegos MD LAB BLOOD ORDERABLES Final Resul t [facility] [address] [place] [address], * Lipase (09/24/2024 2:12 PM EDT) Lipase 28 13 - 75 unit/L LAB CHEMISTRY METHOD 09/24/2024 3:08 PM EDT [facility] Blood Venous blood specimen / Unknown Venipuncture / Unknown 09/24/2024 2:12 PM EDT 09/24/2024 2:34 PM EDT us Susan Mazariegos MD LAB BLOOD ORDERABLES Final Resul t [facility] [address] [place] [address], [place] [phone] * Comprehensive metabolic panel (09/24/2024 2:12 PM EDT) [facility] Sodium 139 133 - 145 mmol/L LAB CHEMISTRY METHOD 09/24/2024 3:29 PM [facility] Potassium 4.4 3.5 - 5.5 mmol/L LAB CHEMISTRY METHOD 09/24/2024 3:29 PM [facility] Chloride 105 96 - 110 mmol/L LAB CHEMISTRY METHOD 09/24/2024 3:29 PM [facility] CO2 31 21 - 32 mmol/L LAB CHEMISTRY METHOD 09/24/2024 3:29 PM [facility] Anion Gap 3 3 - 11 LAB CHEMISTRY METHOD 09/24/2024 3:29 PM [facility] Glucose 87 70 - 100 mg/dL LAB CHEMISTRY METHOD 09/24/2024 3:29 PM [facility] BUN 19 5 - 25 mg/dL LAB CHEMISTRY METHOD 09/24/2024 3:29 PM [facility] Creatinine 1.03 0.50 - 1.10 mg/dL LAB CHEMISTRY METHOD 09/24/2024 3:29 PM [facility] eGFR 69 >=60 mL/min/1. 73m2 LAB CHEMISTRY METHOD 09/24/2024 3:29 PM [facility] Comment:Calculation based on the Chronic Kidney Disease Epidemiology Collaboration (CKD-EPI) equation refit without adjustment for race. BUN/Creatinine Ratio 18.4 LAB CHEMISTRY METHOD 09/24/2024 3:29 PM EDT [facility] Calcium 9.1 8.5 - 10.5 mg/dL LAB CHEMISTRY METHOD 09/24/2024 3:29 PM EDT [facility] AST (SGOT) 15 10 - 42 unit/L LAB CHEMISTRY METHOD 09/24/2024 3:29 PM EDT [facility] ALT (SGPT) 20 10 - 60 unit/L LAB CHEMISTRY METHOD 09/24/2024 3:29 PM EDT [facility] Alkaline Phosphatase 95 42 - 121 unit/L LAB CHEMISTRY METHOD 09/24/2024 3:29 PM [facility] Total Protein 6.7 6.0 - 8.0 g/dL LAB CHEMISTRY METHOD 09/24/2024 3:29 PM EDT [facility] Albumin 3.7 3.2 - 5.0 g/dL LAB CHEMISTRY METHOD 09/24/2024 3:29 PM EDT [facility] Total Bilirubin 0.2 0.0 - 1.4 mg/dL LAB CHEMISTRY METHOD 09/24/2024 3:29 PM EDT [facility] Blood Venous blood specimen / Unknown Venipuncture / Unknown 09/24/2024 2:12 PM EDT 09/24/2024 2:34 PM EDT us Susan Mazariegos MD LAB BLOOD ORDERABLES Final Resul t [facility] [address] [place] [address], * 12-Lead ECG (09/24/2024 2:05 PM EDT) Ventricular Rate ECG 71 BPM GEMUSE Atrial Rate 71 BPM GEMUSE P-R Interval 136 ms GEMUSE QRS Duration 74 ms GEMUSE Q-T Interval 386 ms GEMUSE QTc 419 ms GEMUSE P Wave [place] 33 degrees GEMUSE R [place] 43 degrees GEMUSE T [place] 25 degrees GEMUSE ECG Interpretation Normal sinus [...] MOLECULAR DIAGNOSTICS METHOD 09/21/2024 2:33 PM EDT [facility] Chlamydia trachomatis PCR Negative Negative LAB MOLECULAR DIAGNOSTICS METHOD 09/21/2024 2:33 PM EDT [facility] Urine Urine specimen from urethra / Unknown 09/18/2024 9:29 AM EDT 09/18/2024 9:29 AM EDT Carlos Austin NP LAB MICROBIOLOGY - GENERAL ORDER AGNES Final Result [facility] [address] [place] [address], [place] [phone] * HCG, quantitative (09/18/2024 9:29 AM EDT) hCG Quant <1 mIU/mL LAB CHEMISTRY METHOD 09/18/2024 3:17 PM EDT [facility] Blood Venous blood specimen / Unknown Venipuncture / Unknown 09/18/2024 9:29 AM EDT 09/18/2024 9:29 AM EDT Narrative [facility] - 09/18/2024 3:17 PM EDT Quantitative HCG Reference Ranges Time after Conception MIU/ML 0.2-1 Week 5-50 1-2 Weeks 50-500 2-3 Weeks 100-5,000 3-4 Weeks 500-10,000 4-5 Weeks 1,000-50,000 5-6 Weeks 10,000-100,000 6-8 Weeks 15,000-200,000 2-3 Months 10,000-100,000 2nd Trimester 1,000-94,000 3rd Trimester 2,500-90,000 Non- Females 1-3 us Nerissa Robertson MD LAB BLOOD ORDERABLES Final Res ult [facility] [address] [place] [address], * [place] Breast Limited Right (09/14/2024 10:00 [...] BILATERAL [facility]amm[facility] location[facility] [address], [address] -------- FINAL REPORT -------- Dictated By: Benji Reynaga Dictated Date: 09/14/2024 09:56 ET Assigned Physician: Benji Reynaga Reviewed and Electronically Signed By: Benji Reynaga Signed Date: 09/14/2024 10:00 ET Workstation ID: [id number] Transcribed By: Self Edit Transcribed Date: 09/14/2024 [...] BILATERAL [facility]ammography location: [facility] [address] [place], [address] -------- FINAL REPORT -------- Dictated By: Benji Reynaga Dictated Date: 09/14/2024 09:56 ET Assigned Physician: Benji Reynaga Reviewed and Electronically Signed By: Benji Reynaga Signed Date: 09/14/2024 10:00 ET Workstation ID: [id number] Transcribed By: Self Edit Transcribed Date: 09/14/2024 09:56 ET us Nerissa Robertson MD IM US PROCEDURES Final Result * Hepatitis C antibody (06/16/2024 10:00 AM EDT) Hepatitis C Antibody Negative Negative LAB CHEMISTRY METHOD 06/16/2024 3:00 PM EDT [facility] Blood Venous blood specimen / Unknown Venipuncture / Unknown 06/16/2024 10:00 AM EDT 06/16/2024 10:24 AM EDT us Carlos Austin NP LAB BLOOD ORDERABLES Final Resul t [facility] [address] [place] [address], [place] [phone] * HIV 1,2 antibody, p24 antigen with reflex to differentiation (06/16/2024 10:00 AM EDT) HIV Combo AB/AG Negative Negative LAB CHEMISTRY METHOD 06/16/2024 3:00 PM EDT [facility] Blood Venous blood specimen / Unknown Venipuncture / Unknown 06/16/2024 10:00 AM EDT 06/16/2024 10:24 AM EDT Narrative [facility] - 06/16/2024 3:00 PM [...] NP LAB BLOOD ORDERABLES Final Resul t [facility] [address] [place] [address], [place] [phone] * Lipid panel with reflex to direct LDL (06/16/2024 10:00 AM EDT) Cholesterol 175 0 - 200 mg/dL LAB CHEMISTRY METHOD 06/16/2024 1:23 PM EDT [facility] Triglycerides 88 0 - 150 mg/dL LAB CHEMISTRY METHOD 06/16/2024 1:23 PM EDT [facility] HDL 58 >=40 mg/dL LAB CHEMISTRY METHOD 06/16/2024 1:23 PM EDT [facility] LDL Calculated 99 0 - 100 mg/dL LAB CHEMISTRY METHOD 06/16/2024 1:23 PM [facility] VLDL Cholesterol [place] 17.6 mg/dL LAB CHEMISTRY METHOD 06/16/2024 1:23 PM T [facility] Non HDL Chol. (LDL+VLDL) 117 <145 mg/dL LAB CHEMISTRY METHOD 06/16/2024 1:23 PM T [facility] Chol/HDL Ratio 3.0 0.0 - 4.4 LAB CHEMISTRY METHOD 06/16/2024 1:23 PM [facility] Blood Venous blood specimen / Unknown Venipuncture / Unknown 06/16/2024 10:00 AM EDT 06/16/2024 10:24 AM EDT us Carlos Austin [employer] LAB BLOOD ORDERABLES Final Resul t [facility]) [facility] [address] [place] [address], [place] [phone] * Depression Screening (12/10/2023) Depression Screening abstracted Historical Provider HEALTH MAINTENANCE Final Result from Last 3 Months or Most Recently Relevant to Health Maintenance Insurance [facility] [employer] Care Teams Postal Carrier Relationship Specialty Start Date End Date Nerissa Robertson MD [address] [facility] [address] [place] [address] PCP - General Internal Medicine 03/14/24
--- OUTSIDE RECORDS SUMMARY | 2024-12-12 12:24 | XMS_ITS | Clinical Summary ---
Author Organization [facility] Address [address] [place] [address] Care Team Providers Care Bottling Equipment Sales Representative Name Role Phone JamelCookie Primary Care Provider [phone] Medications Omeprazole 20 MG CAPSULE DELAYED RELEASE [...] complete this topic Insurance MEDICAID Care Teams Bottling Equipment Sales Representative Relationship Specialty Start Date End Date Cookie Mccullough DO [address] [place] [address] PCP - General Family Medicine 07/22/17
[2024-12-12 13:30] LABS: MANUAL DIFF FLAG NO
[2024-12-12 13:35] LABS: Hematocrit 39.8 % (37.0-47.0); Hemoglobin 12.5 g/dl (12.0-16.0); Imm Gran Abs Auto 0.01 X10*3/uL (0.00-0.03); Imm Gran Pct Auto 0.2 % (0.0-0.4); Lymphocytes Absolute Auto 1.8 X10*3/uL (1.2-4.9); Mean Corpuscular HGB Conc 31.4 g/dl (31.0-35.0); Mean Corpuscular Hemoglobin 25.6 pg (27.0-33.0); Mean Corpuscular Volume 81.4 fL (80.0-98.0); NRBC Abs Auto 0.000 X10*3/uL (0.0-0.012); NRBC Pct Auto 0.0 /100WBC (0.0-0.2); Platelet Count 270 X10*3/uL (160-400); Red Blood Count 4.89 X10*6/uL (4.20-5.50); White Blood Count 5.8 X10*3/uL (4.8-10.8)
[2024-12-12 14:12] LABS: Alanine Aminotransferase 27 U/L (0-31); Albumin Level 4.5 g/dL (3.5-5.0); Alkaline Phosphatase 96 U/L (39-117); Anion Gap 11 (12-20); Aspartate Amino Transferase 24 U/L (5-31); Blood Urea Nitrogen 17 mg/dL (9-16); Calcium 9.5 mg/dL (8.4-10.2); Carbon Dioxide 28 mmol/L (22-29); Chloride 106 mmol/L (96-108); Estimated Glomerular Filt Rate > 60; Potassium 4.2 mmol/L (3.3-5.1); Sodium 141 mmol/L (135-145); Total Protein 7.1 g/dL (6.5-8.0)
== END 2024-12-12 10:12 | disposition home or self-care (01) ==
LOC: HO.HKASLDS 10:11
PROVIDERS: PCP Internal Medicine; Visit Provider Student in an Organized Health Care Education/Training Program
DX: Z79.899 Other long term (current) drug therapy (principal)
CPT/HCPCS: 36415; 80053; 85025; 85652; 86140